=== PATIENT | female | born 1980 | race Caucasian/White ===

== ENCOUNTER → 2018-01-29 12:11 | Outpatient (CLI) | payer BC, SELFPAY ==
--- NOTE | 2018-01-29 12:40 | US_ITS ---
STUDY: ULTRASOUND OF THE FEMALE PELVIS - COMPLETE REASON FOR EXAM: Female, 37 years old. Bleeding LMP: TECHNIQUE: Transabdominal and Transvaginal TECHNICAL QUALITY: Adequate. COMPARISON: None. FINDINGS: The uterus is anteverted and is in a midline position. The uterus measures 10.2 x 5.2 x 4.1 cm. Normal uterine cervix. The endometrium measures 4.0 mm in thickness, and is hyperechoic. There is a trace amount of fluid in the endometrium, likely hemorrhage as patient is currently on period. There is no demonstrated endometrial mass. There is no demonstrated myometrial mass. I.U.D. - The patient does not have an I.U.D. The right ovary is visualized. The right ovary measures 3.1 x 1.6 x 2.0 cm. There is no right ovarian cyst or ovarian mass. There is no visualized right adnexal mass or complex lesion. There is normal arterial and normal venous vascularity. The left ovary is visualized. The left ovary measures 3.2 x 2.3 x 1.8 cm. There is no left ovarian cyst or ovarian mass. There is no visualized left adnexal mass or complex lesion. There is normal arterial and normal venous vascularity. There is no fluid in the cul-de-sac. The pre void volume of the bladder was 361 ml. Polycystic ovary disease: No. US/Pelvic (Non ) IMPRESSION: No suspicious sonographic findings, trace fluid in the endometrium is likely related to patient's cycle. Electronically Signed: Rafael Samano MD at 13:48 EDT , Service support ,
== END ==
PROVIDERS: Family Provider Family Medicine; PCP Family Medicine; Visit Provider Obstetrics & Gynecology
DX: N92.4 Excessive bleeding in the premenopausal period (principal)
CPT/HCPCS: 76856; 93976

== ENCOUNTER → 2018-02-22 13:09 | Outpatient (CLI) | payer BC, SELFPAY ==
[2018-02-22 16:30] LABS: Chlamydia Trachomatis by PCR Negative (Negative); Neisserai gonorrhoeae by PCR Negative (Negative); Probe Check PASS; Sample Adequacy Control PASS; Specimen Processing Control PASS
== END ==
PROVIDERS: Visit Provider Obstetrics & Gynecology
DX: Z11.3 Encounter for screening for infections with a predominantly sexual mode of transmission (principal)
CPT/HCPCS: 87491; 87591

== ENCOUNTER 2018-09-26 11:59 | Day surgery (SDC) | payer BC, SELFPAY ==
[2018-09-26] VITALS (7 sets, daily range): BP systolic 107–142; BP diastolic 73–94; PULSE 54–83; RESP 14–16; TEMP 36.8–37.6; O2SAT 94–96; BMI 36.2
[2018-09-26 12:22] LABS: Internal QC Validated? YES +Cl - CLEAR BKGD; Pregnancy, Urine Negative Negative
[2018-09-26 12:53] LABS: Hematocrit 40.9 % (37-47); Hemoglobin 13.9 g/dl (12.0-15.0); Mean Corpuscular Hgb 31.6 pg (27.0-32.0); Mean Platelet Vol. 9.7 fl (6.2-12.0); Platelet Count 270 K/mm3 (150-450); RBC Distribution Width CV 12.8 % (11.6-14.6); RBC Distribution Width SD 42.6 fl (35.1-43.9)
[2018-09-26 12:54] LABS: Scan Indicated on CBC? Y/N NO
--- NOTE | 2018-09-26 13:34 | PCM.DC.D&C ---
Discharge Diet: No Restrictions Return to work on:: 09/27/18 May resume sexual activity in: 1 week Weight Bearing Status: Weight bearing as tolerated Call your doctor if you observe: Fever of 101 or Higher, Inability to have a bowel movement, Using more than one pad per hour, Calf discomfort, Uncontrolled pain Allergies/Adverse Reactions: Allergies ketorolac [From Toradol] Allergy (Verified 09/26/18 12:15) PASSING OUT BEE STINGS Allergy (Uncoded 09/26/18 12:15) Swelling Medications to take at Discharge Albuterol Inhaler [Ventolin Hfa] 1 - 2 puff INHALATION Q6H PRN PRN 06/22/16 Cetirizine HCl [Zyrtec] 10 mg PO DAILY PRN 06/22/16 Hydrochlorothiazide [Hctz] 25 mg PO DAILY 06/22/16 Lorazepam [Ativan] 0.5 mg PO DAILY PRN PRN 06/22/16 Metoprolol Tartrate [Lopressor (beta breanna)] 25 mg PO DAILY 06/22/16 buPROPion SR [Wellbutrin SR (150mg tablets)] 300 mg PO DAILY 06/22/16 Fluticasone 0.05% [Flonase Nasal [place]] 1 spray NASAL DAILY PRN 09/20/18 Oxycodone HCl/Acetaminophen [Percocet 5-325] 1 - 2 tablet PO Q6H PRN PRN 2 Days #5 tablet 09/26/18 The following prescriptions were given: Oxycodone HCl/Acetaminophen [Percocet 5-325] 1 - 2 tablet PO Q6H PRN PRN 2 Days #5 tablet PRN Reason: Moderate Pain Primary Care Physician: Nadege Perez DO [Primary Care Provider] - Test Results: Test results from this visit will be discussed in further detail at your follow-up appointment, if applicable.
--- NOTE | 2018-09-26 13:40 | EMB_PTH ---
PATIENT: WILSON PINA LOC: [facility] – [place] U#:[id number] AGE/SX: 38/F ROOM: RE09/26/[address]: Dr. Farnaz Lynch MD : 1980 BED: DIS: 09/26/2018 SPEC #: [id number] RECD: 09/26/18 16:18 STATUS: LESLIE RODRI #: [id number] RUBY: 09/26/18 13:[address]: Farnaz Lynch DEPT: SURGICAL PATHOLOGY RECD BY: Ventura Lozoya ENTERED: 09/27/18 10:54 SP TYPE: ENDOM BX/C CHIO DR: Dr. 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 Mild chronic endometritis. AM:can 09/28/18 MICROSCOPIC DESCRIPTION Slides are reviewed. GROSS DESCRIPTION Received in fixative is one container labeled with the patient's name and designated endometrial curettings. The specimen consists of multiple irregular fragments of red-alegria soft tissue that in aggregate measure 2.2 x 2 x 0.2 cm. The specimen is totally submitted in one cassette. / AM:can 09/27/18 TC:3 CPT: 07468
--- NOTE | 2018-09-26 15:20 | PCM.OP.BLANK ---
Operative Report Date of Procedure: 09/26/18 PROCEDURE: Removal of Mirena IUD Hysteroscopy, Dilation and curettage, Baylee endometrial ablation Preoperative Diagnosis: Excessive bleeding in premenopause, menorrhagia Failed trial of Mirena IUD Postop diagnosis: Excessive bleeding in premenopause, menorrhagia Failed trial of Mirena IUD Anesthesia: MAC IV sedation James Dwyer MD 10 cc 1% lidocaine with 1:100,000 epinephrine as paracervical block (Yuliana Lynch MD) Surgeon: Farnaz Lynch MD EBL: Minimal for case Drains: [place], minimal clear yellow urine Complications: none Fluids: replacement Findings: Mirena IUD string at ectocervix. Easily removed Normal appearing endometrium. Tubal ostia visualized bilaterally No fibroids or endometrial polyps noted. Narrative account After the R,B,Alternatives of the procedure were reviewed with the patient , informed consent was obtained. The patient was taken to the operating room with an IV running and placed in dorsal supine position of the operating table. She was given MAC IV sedation and repositioned to the dorsal lithotomy position and prepped and draped in the usual sterile fashion. A Graves speculum was placed into the vagina and the cervix was brought into view. A ring forceps was used to grasp the Mirena IUD string and the Miren a was removed, shown to nurses in the room, and then discarded. The cervix was instilled with 10 cc of 1% lidocaine as a paracervical block using a 20 G spinal needle. The cervix was then gently probed and sequentially dilated to allow admission of the hysteroscope into the endometrial cavity. The hysteroscopy was performed with findings noted as above. A sharp curettage was performed and multiple small pieces of tissue were withdrawn and set aside. The Baylee endometrial ablation device was inserted and the CO2 test passed. The endometrial cavity was 5 cm (9 cm sound, with 4 cm endocervical canal) The endometrial ablation was completed in 120 sec. The device was removed from the uterus, and the single toothed tenaculum was removed. Excellent hemostasis was noted. A RayTec was used to remove any remaining tissue and blood from the upper vagina and cervix. The procedure was terminated. The speculum was removed. The patient was returned to dorsal supine position and awakened from IV sedation and transferred to her recovery room bed in stable condition after tolerating the procedure well. Sponge, lap, needle and instrument counts were correct x two. medications given intraoperatively included 10 cc of 1% lidocaine with 1:100,000 epinephrine instilled as a paracervical block. For a complete listing of the medications given intraoperatively, see the anesthesia record.
[2018-09-26] MEDS: oxyCODONE 5 MG Tablet PO ×2 (16:57→17:28)
[2018-09-26] MEDS: Ibuprofen 200 MG Tablet PO (19:05)
== END 2018-09-26 19:40 | disposition home or self-care (01) ==
LOC: SDC 12:00 → AC 12:00
PROVIDERS: Family Provider Family Medicine; PCP Family Medicine; Referring Provider Obstetrics & Gynecology; Visit Provider Obstetrics & Gynecology
PROC: 0U5B8ZZ Destruction of Endometrium, Via Natural or Artificial Opening Endoscopic (ICD-10-PCS; CPT 58558; principal; 2018-09-26 13:25)
DX: N92.0 Excessive and frequent menstruation with regular cycle (principal); F41.9 Anxiety disorder, unspecified; F32.9 Major depressive disorder, single episode, unspecified; J45.909 Unspecified asthma, uncomplicated; I10 Essential (primary) hypertension; Z87.442 Personal history of urinary calculi; Z79.51 Long term (current) use of inhaled steroids; Z79.899 Other long term (current) drug therapy
CPT/HCPCS: 58301; 58563; 81025; 85027; 86850; 86900; 88305; J7120; J2405

== ENCOUNTER → 2019-05-03 | Outpatient (CLI) | payer BC, SELFPAY ==
[2019-05-03 07:53] VITALS: BMI 36.2
--- NOTE | 2019-05-03 08:06 | RAD_ITS ---
STUDY: X-RAY - RIGHT HAND REASON FOR EXAM: Hand/wrist pain after using a cane. TECHNIQUE: 3 view(s) of the hand. COMPARISON: None. FINDINGS: Normal radiocarpal articulation. Normal distal radioulnar joint. Normal visualized carpal bones. Normal carpal articulations Normal carpometacarpal articulation of the thumb. Normal second through fifth carpometacarpal joints. Normal metacarpi. Normal metacarpophalangeal joint of the thumb. Normal interphalangeal joint of the thumb. Normal proximal and distal phalanges of the thumb. Normal metacarpophalangeal joints of the second through fifth fingers. Normal proximal and distal interphalangeal joints of the second through fifth fingers. Normal phalanges of the second through fifth fingers. The soft tissue structures are unremarkable. RAD/Hand Min 3 Views IMPRESSION: Normal x-ray examination of the right hand. Electronically Signed: Antonio Gonzales MD at 8:29 EDT Tel , Service support ,
== END | disposition home or self-care (01) ==
LOC: HPRAD 08:05
PROVIDERS: Family Provider Family Medicine; PCP Family Medicine; Referring Provider Orthopaedic Surgery; Visit Provider Orthopaedic Surgery
DX: M25.531 Pain in right wrist (principal)
CPT/HCPCS: 73130

== ENCOUNTER → 2019-12-03 | Outpatient (CLI) | payer BC, MEDICAID, SELFPAY ==
[2019-05-03 07:53] VITALS: BMI 36.2
--- NOTE | 2019-12-03 13:00 | RAD_ITS ---
HISTORY: FELL DOWN STEPS ADDITIONAL HISTORY: None provided. TECHNIQUE: Right ankle 3 views Number of images including paperwork: 3 COMPARISON: Right foot 01/31/2017 FINDINGS: BONES: No acute fracture. Corticated ossific density adjacent to the medial malleolus, similar to previous. JOINTS: No subluxation. SOFT TISSUES: No distinct foreign body. Soft tissue swelling. RAD/Ankle min 3 Views IMPRESSION: No acute osseous abnormality. Soft tissue swelling. at 0331 Reported and signed by: Gisell Og MD Electronically Signed: Gisell Og MD at 3:31 EST Tel , Service support ,
--- NOTE | 2019-12-03 13:00 | RAD_ITS ---
STUDY: X-RAY - RIGHT FOOT CLINICAL: Fell down steps. TECHNIQUE: 3 view(s) of the foot. COMPARISON: Radiographs 01/31/2017, 09/11/2014 and 07/31/2014. FINDINGS: There are very small posterior and plantar calcaneal enthesophytes. Otherwise, unremarkable talus, calcaneus, and tarsal bones. Normal visualized subtalar, talonavicular, calcaneocuboid, tarsal and tarsometatarsal articulations. Normal metatarsi. Normal metatarsophalangeal joint of the great toe. Normal tibial and fibular sesamoid bones. Normal interphalangeal joint of the great toe. Normal phalanges of the great toe. Normal second through fifth metatarsophalangeal joints. Normal interphalangeal joints of the lesser toes. There is mild deformity of the medial aspect of the head of the fifth proximal phalanx unchanged since the prior studies, likely from remote healed fracture. The soft tissue structures are unremarkable. RAD/Foot min 3 Views IMPRESSION: Mild deformity of the head of the fifth proximal phalanx, likely from remote healed fracture. Very small calcaneal enthesophytes. Electronically Signed: Antonio Gonzales MD at 13:52 EST Tel , Service support ,
== END | disposition home or self-care (01) ==
LOC: HPRAD 13:00
PROVIDERS: PCP Family Medicine; Referring Provider Physician Assistant; Visit Provider Physician Assistant
DX: M25.571 Pain in right ankle and joints of right foot (principal); M79.671 Pain in right foot
CPT/HCPCS: 73610; 73630

== ENCOUNTER → 2019-12-17 | Outpatient (CLI) | payer BC, MEDICAID, SELFPAY ==
[2019-12-03 13:00] VITALS: BMI 36.2
--- NOTE | 2019-12-17 10:42 | RAD_ITS ---
STUDY: X-RAY - RIGHT FOOT CLINICAL: Female, 39 years old. FRACTURE TECHNIQUE: 3 view(s) of the foot. COMPARISON: None. FINDINGS: Minimal plantar calcaneal spur otherwise normal talus, calcaneus, and tarsal bones. Normal visualized subtalar, talonavicular, calcaneocuboid, tarsal and tarsometatarsal articulations. Normal metatarsi. Normal metatarsophalangeal joint of the great toe. Normal tibial and fibular sesamoid bones. Normal interphalangeal joint of the great toe. Normal phalanges of the great toe. Normal second through fifth metatarsophalangeal joints. Normal interphalangeal joints and phalanges of the lesser toes. Soft tissue swelling over the anterior ankle and dorsum of the foot. There is no demonstrated fracture. RAD/Foot min 3 Views IMPRESSION: Nonspecific soft tissue swelling as described. No acute fracture or subluxation. Electronically Signed: Denise Garcia MD at 0:31 EDT , Service support ,
== END | disposition home or self-care (01) ==
LOC: HPRAD 10:42
PROVIDERS: PCP Family Medicine; Referring Provider Physician Assistant; Visit Provider Physician Assistant
DX: M25.571 Pain in right ankle and joints of right foot (principal); S99.911A Unspecified injury of right ankle, initial encounter
CPT/HCPCS: 73630

== ENCOUNTER → 2020-05-25 | Outpatient (CLI) | payer MEDICAID, SELFPAY ==
[2020-05-25 09:04] VITALS: BMI 36.2
--- NOTE | 2020-05-25 09:09 | RAD_ITS ---
STUDY: X-RAY - LEFT KNEE REASON FOR EXAM: Female, 39 years old. UNSURE OF INJURY. PAIN. DIFFICULT TO BEND TECHNIQUE: 4 view(s) of the knee. COMPARISON: None. FINDINGS: Normal visualized distal femur. Normal visualized proximal tibia and fibula. Normal proximal tibiofibular articulation. Normal medial femorotibial compartment. Normal lateral femorotibial compartment. Normal patellofemoral articulation. The soft tissue structures are unremarkable. RAD/Knee 4 or More Views IMPRESSION: Normal x-ray examination of the knee. Electronically Signed: Ventura Noe MD at 17:19 EDT Tel , Service support ,
== END | disposition home or self-care (01) ==
LOC: HPRAD 09:09
PROVIDERS: PCP Family Medicine; Referring Provider Physician Assistant; Visit Provider Physician Assistant
DX: M25.562 Pain in left knee (principal)
CPT/HCPCS: 73564

== ENCOUNTER 2020-05-27 13:44 | Emergency (ER) | payer MEDICAID, SELFPAY ==
[2020-05-25 09:04] VITALS: BMI 36.2
[2020-05-27 13:44] VITALS: BP 159/109; PULSE 65; RESP 16; TEMP 36.5; O2SAT 94; BMI 39.9
--- NOTE | 2020-05-27 14:11 | ED.VISSUMM ---
- ER Visit Summary Date of Service: 05/27/20 Chief Complaint: Knee pain History of Present Illness: The patient is a 39 F who fell in November. She has been dealing with right ankle and left knee pain. Her pain in her left knee has worsened over the past week. She has left lateral knee pain. She has a history of arthroscopy in 1996 for meniscus problems. No other knee issues. She saw Ortho earlier this week. She is awaiting prior authorization for MRI. She presents today because her left knee buckled while walking. She felt a pop. She is unable to bear weight. Physical Examination: Afebrile and vital signs unremarkable. Inspection appears unremarkable. Range of motion and extension is intact. No obvious laxity. She does have left lateral knee tenderness over the joint line. Neurovascular intact distally. Test Results: X-rays pending. Emergency Department Course and Treatment: Patient has no active controlled prescriptions. She is not driving. She received [place] while awaiting x-ray results. Xrays unremarkable. I suspect the patient may have a meniscus injury. She will likely still need an MRI. This can be done as an outpatient. Patient has crutches and is able to get around on them okay. Will prescribe some pain medicine. She will touch base with her orthopedist's office for follow-up imaging. Treatment Plan: As above Disposition: Discharge Impression: Left knee pain This note was generated with Chipolo dictation software. It may contain incorrect words, spelling, and punctuation that were not noted in review of the chart prior to signing ED Disposition - Plan for ED Patient: Referrals: Nadege Perez DO [Primary Care Provider] -
[2020-05-27] MEDS: HYDROcodone Bitartrate/Apap 5/325 Tablet PO (14:14)
--- NOTE | 2020-05-27 15:00 | RAD_ITS ---
STUDY: X-RAY - LEFT KNEE REASON FOR EXAM: Female, 39 years old. Patient states she was walking and felt a snap in knee, unable to bear weight TECHNIQUE: 4 view(s) of the knee. COMPARISON: None. FINDINGS: Normal visualized distal femur. Normal visualized proximal tibia and fibula. Normal proximal tibiofibular articulation. Normal medial femorotibial compartment. Normal lateral femorotibial compartment. Normal patellofemoral articulation. The soft tissue structures are unremarkable. RAD/Knee 4 or More Views IMPRESSION: Normal x-ray examination of the knee. Electronically Signed: Jayro Purcell, at 15:24 EDT , Service support ,
--- NOTE | 2020-05-27 15:47 | ED.DEP ---
ED Disposition - Plan for ED Patient: Instructions: ED Knee Pain [facility] Prescriptions: Hydrocodone Bitart/Apap 5-325 [[place] 5MG-325MG] 1 tab PO Q6H PRN PRN 3 Days #12 tab PRN Reason: Pain Prescription Printed Referrals: Maricel Mercado DO [STAFF PHYSICIAN] -
== END 2020-05-27 16:13 | disposition home or self-care (01) ==
LOC: ED 14:23
PROVIDERS: Emergency Provider Emergency Medicine; PCP Family Medicine
DX: M25.562 Pain in left knee (principal); I10 Essential (primary) hypertension; Z79.899 Other long term (current) drug therapy
CPT/HCPCS: 73564; 99283

== ENCOUNTER → 2020-05-29 | Outpatient (CLI) | payer MEDICAID, SELFPAY ==
[2020-05-27 13:44] VITALS: BMI 39.9
--- NOTE | 2020-05-29 06:27 | MRI_ITS ---
STUDY: MRI LEFT KNEE REASON FOR EXAM: Female, 39 years old. Pain. TECHNIQUE: Standardized fat and water weighted pulse sequences were obtained in all 3 orthogonal planes. COMPARISON: May 27, 2020 x-ray FINDINGS: Medial meniscus tear of the posterior horn adjacent to the meniscal root, series 6 image /30. There is delamination along the posterior horn, series 3 images /42 through 33/42. Normal hyaline cartilage of the medial femorotibial compartment. There is mild osteoarthritic spur formation of the medial knee compartment. Normal medial collateral ligamentous complex (MCL). Normal distal semimembranosus, gracilis and semitendinosus tendons. Normal lateral meniscus. Normal hyaline cartilage of the lateral femorotibial compartment. Normal lateral femoral condyle and tibial plateau. Normal proximal tibiofibular articulation. Normal lateral collateral (fibular) ligament. Normal popliteus tendon. Normal biceps femoris tendon. Normal anterior cruciate ligament (ACL). Normal posterior cruciate ligament (PCL). Normal congruent patellofemoral articulation. Normal hyaline cartilage of the patellofemoral compartment. Normal medial and lateral patellar retinaculum. Normal quadriceps tendon. Normal patellar tendon. Normal Hoffa''s fat pad. There is a moderate volume joint effusion. The soft tissues are unremarkable. The otherwise visualized osseous structures are unremarkable. MRI/Lower Ext Joint Only (Routine) IMPRESSION: Medial meniscus tear Joint effusion. Electronically Signed: Edgar Link MD at 8:21 EDT , Service support ,
== END | disposition home or self-care (01) ==
PROVIDERS: PCP Family Medicine; Referring Provider Physician Assistant; Visit Provider Physician Assistant
DX: S83.282A Other tear of lateral meniscus, current injury, left knee, initial encounter (principal)
CPT/HCPCS: 73721

== ENCOUNTER 2020-07-01 10:03 | Day surgery (SDC) | payer MEDICAID, SELFPAY ==
[2020-06-01 13:36] VITALS: BMI 39.9
[2020-07-01] VITALS (11 sets, daily range): BP systolic 118–146; BP diastolic 80–103; PULSE 66–80; RESP 15–16; TEMP 36.6–37.3; O2SAT 93–100; BMI 37.9
[2020-07-01] MEDS: Lactated Ringers 1,000 ML 100 ML IV (11:05)
[2020-07-01] MEDS: Epinephrine (1 mg/ml) 1 MG/ML VIAL (12:21)
[2020-07-01] MEDS: Cefazolin 2 GM in 0.9% Normal Saline 100 ML IV (12:43)
--- NOTE | 2020-07-01 12:49 | HP.PCM_ITS ---
History and Physical I have re-examined the patient. There are no clinical changes since date of exam. Intake Intake Visit Reasons: knee pain Accompanied by: Mother Is patient in pain?: Yes Allergies ketorolac [From Toradol] Allergy (Verified 12/17/19 10:50) PASSING OUT BEE STINGS Allergy (Uncoded 09/26/18 12:15) Swelling Medications Albuterol Inhaler [Ventolin Hfa] 1 - 2 puff INHALATION Q6H PRN PRN 06/22/16 [History Confirmed 05/25/20] Cetirizine HCl [Zyrtec] 10 mg PO DAILY PRN 06/22/16 [History Confirmed 05/25/20] Hydrochlorothiazide [Hctz] 25 mg PO DAILY 06/22/16 [History Confirmed 05/25/20] Lorazepam [Ativan] 0.5 mg PO DAILY PRN PRN 06/22/16 [History Confirmed 05/25/20] Metoprolol Tartrate [Lopressor (beta breanna)] 25 mg PO DAILY 06/22/16 [History Confirmed 05/25/20] buPROPion SR [Wellbutrin SR (150mg tablets)] 300 mg PO DAILY 06/22/16 [History Confirmed 05/25/20] Fluticasone 0.05% [Flonase Nasal [place]] 1 spray NASAL DAILY PRN 09/20/18 [History Confirmed 05/25/20] [facility] Social History (Updated 05/25/20 @ 13:10 by DIMITRI Lema) Smoking Status: Never smoker HPI knee pain: Details: Parts of this documentation were recorded by a scribe, this d ocumentation accurately reflects the service provided and the decisions made by me, DIMITRI Lema 05/25/20 0858. WILSON PINA is a 39 year old F here today for left knee pain. States that she fell in November and has a few falls since then and does not recall a specific injury. She states that she has good extension but she has trouble with flexion and she has mostly lateral joint line pain. Denies numbness, tingling or other associated symptoms. Denies any radiating leg pain. She reports having a knee scope of the left knee in 1995 for a plica band release. She is having painful popping of the left knee and she reports having a loud snap of the knee last night which increased her ROM for a few hours. Denies any previous injections. We discussed the current risk associated COVID-19. While it is understood that there is a community spread of COVID 19 the risk of riley COVID-19 while at [facility] is very low, however, the risk cannot be completely mitigated because of the community spread of the disease. We discussed in detail the risk of exposure to and or potential harm posed by the COVID-19 virus with having a surgery/procedure at this time versus the risk of delaying the surgery/procedure. Is not possible to know either the risk of delaying the surgery procedure or chance of getting an infection with perfect accuracy, but a joint decision was made to proceed at this time with a schedule surgery/procedure as indicated on the consent form. Patient was notified that we will need to comply with any screening or testing [facility] wishes to perform or that surgery may be delayed for any positive results. ROS Musc Reports joint pain Skin/Breast Reports system reviewed and no additional complaints, except as docu Neuro Yes system reviewed and no additional complaints, except as docu Ortho Exam Left Knee Skin/Wound: No ecchymosis, No erythema, Yes swelling (Minor swelling no evident effusion) Contralateral Normal: Yes Homans Sign: No Knee ROM: Yes ROM-Extension -20 to 0, No ROM-Flexion 0-140 (Approximately 90 degrees) Examination: Yes med jt line tenderness (Minimal), Yes Lat jt line tenderness (More pronounced), No TTP inf pole patella, No Crepitus, Yes Pain with flexion, Yes Catalina's Test (Modified due to lack of flexion. Pain/guarding) Stability: NML: Anterior Drawer, NML: Gas[place], NML: Valgus 30 (No laxity), NML: Varus 30 (No laxity minor discomfort) Apprehension with Lateral Translation: No Popliteal Adenopathy: No Patella Grind: No KNEE: Inspection of the left knee shows no acute abnormalities. There is some minor swelling noted at the same time no evident effusion or major swelling. Patient does have evident decreased flexion compared to the right side. She will get to approximately 90 degrees before she stops due to pain discomfort. Her ACL, PCL, and collateral ligaments appear to be intact without laxity (only minor discomfort with varus stress). Catalina's is difficult due to decreased flexion at the same time she does have pretty good amount of pain with tibial rotation even at 90 degrees (pain and guarding also with seated modified Catalina's.) Patient has normal sensation throughout the extremity. She has intact motor function of the ankle/foot/toes Assessment & Plan Problems 1. Acute pain of left knee M25.562 2. Internal derangement of left knee M23.92 Plan Patient presents the office today for left knee pain. Patient states that she had a fall back in the spring which seemed to start her symptoms. She states that she has had other falls since that time where her knee feels like it wants to just give out and she falls. Her physical exam today shows evident lateral joint line tenderness with pain/guarding with modified Catalina's. She has decreased flexion as well as pain which does make this maneuver difficult to perform well. 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 She states that these have not really helped her. At this time with her examination pointing more towards a meniscus involvement we are to proceed with MRI of the left knee. Patient will follow-up in our office following the MRI to review the impression/images and discuss next step in treatment. She can take an anti- inflammatory for inflammation/pain and ice as well. This note was generated with [employer] dictation software. It may contain incorrect words, spelling, and punctuation that were not noted in checking the note before signing. Orders Orders: Knee 4 or More Views Today M25.562 Lower Ext Joint Only (Routine) Today M23.92, S83.282A Coding Level of Care Code Off vis,est,level 3 Diagnoses Acute pain of left knee M25.562 ??Chronicity: acute Internal derangement of left knee M23.92
--- NOTE | 2020-07-01 12:50 | OP.PCM_ITS ---
Report of Operation Date of Procedure: 07/01/20 Pre-Operative Diagnosis: left knee med men tear, oa med joint line oa Post-Operative Diagnosis: same Surgery/Procedure Performed:: left knee arthroscopy, synovectomy, med men repair, mfc chondral debridement/microfracture front end ui developer: Domo Newton Type of Anesthesia:: General Anesthesiologist: Jeovanny Sneed Estimated Blood Loss (mL): none Fluids Replaced: 800cc lr Description of Procedure: Operative note Patient is a 40-year-old female who is had surgery on her right knee in the past continued pain her incision increased pain recently and locking of her right knee MRI confirms a medial meniscus tear as well as some cartilage lesions consistent with arthritis. Patient also has some synovitis in the anterior medial aspect. Risk benefits alternative surgery was discussed with patient. Patient failed conservative treatment options and opted to proceed with left knee arthroscopy. Located risks including but not limited to blood loss, blood clot, infection, neurovascular, failure procedure, loss of life and loss of limb. Again patient is very low proceed with left knee arthroscopy. We discussed the current risk associated COVID-19. While it is understood that there is a community spread of COVID 19 the risk of riley COVID-19 while at [facility] is very low, however, the risk cannot be completely mitigated because of the community spread of the disease. We discussed in detail the risk of exposure to and or potential harm posed by the COVID-19 virus with having a surgery/procedure at this time versus the risk of delaying the surgery/procedure. Is not possible to know either the risk of delaying the surgery procedure or chance of getting an infection with perfect accuracy, but a joint decision was made to proceed at this time with a schedule surgery/procedure as indicated on the consent form. Patient was notified that we will need to comply with any screening or testing [facility] wishes to perform or that surgery may be delayed for any positive results. Operative note Patient seen and examined preoperative holding area. Left knee was marked. Patient brought to the operating room placed supine on the operating table. Signed, anesthesia, antibiotics were administered. Left leg was prepped and draped in usual sterile technique with a tourniquet around her upper thigh. All bony prominences well-padded SCDs placed on her contralateral limb. We marked out our incision for bony for portal placement the left leg was then elevate exsanguinated tourniquet was raised her pressure of 250 torr. Timeout is performed. We then created an anterior lateral portal. Begin our diagnostic arthroscopy. Patellofemoral joint was unremarkable. We then moved to the medial joint line created anterior medial portal under direct visualization. Then had a resected with a shaver as she has quite significant synovitis in the anteromedial aspect of her knee joint. We then probed the medial meniscus there was an unstable red red tear of the posterior horn going to the mid body of the medial meniscus. We then used a rasp to rasp the area of the tear. We then used a shaver again to debride back to for better facilitating healing. We then placed 3-4 360 reverse curved FasT-Fix devices across the tear we then reinserted probe we had stable remnant meniscus remaining. The ACL PCL were present within the notch. The lateral femoral condyle lateral tibial plateau were intact stable probing. The lateral meniscus was intact and stable probing. We then moved back to the medial joint line as there was unstable cartilage lesion on the medial mid of the medial femoral condyle. We probed this and it was unstable piece about the 4 x 5 mm. We used a curette to curette to a stable shoulder. We also curetted the bony margin to further debride the calcified cartilage layer. We then inserted microfracture picks into the bone and had visualization of return of blood and from the bone. We then also microfracture the notch this to further help healing of the MFC as well as the medial meniscus tear. Please note that prior to this we did irrigate the knee with copious nonsterile saline. Tourniquet deflated. Sterile dressings were applied after the portals were closed with interrupted 4-0 nylon sutures. Patient tolerated well no complication transferred recovery room in stable condition. Postoperative note nwb operative limb Follow-up on Monday for device adjustment and dressing changes Keep dressing clean and dry Discussed with friend will give pictures in 2 weeks Call with increased pain numbness tingling further issues arise This note was generated with [employer] software. It may contain incorrect words, spelling, and punctuation that were not noted in checking the note before signing.
--- NOTE | 2020-07-01 12:50 | PCM.DC.ORTHO ---
Discharge Diet: No Restrictions - non weight bearing operative limb for 6 weeks, 0-30 degrees rom while seated, brace locked in extension at night and during ambulation, follow up on monday (please call) for appointment with bethany for dressing change and brace adjustment, call with concers, Ice, Elevate toes above nose, ankle pumps next 48-72 hours Discharge Activity: May Not Drive May shower in (days): 1 Ice area for (Minutes): 20 - Every hour while awake. Weight Bearing Status: Weight bearing as tolerated Keep extremity elevated above heart level: Operative Extremity Call your doctor if your incision/area has: Continuous Slow Oozing, Sudden Increased Bleeding, Increased Pain/ Swelling, Increased Redness, Foul Smelling Discharge Call your doctor if you observe: Fever of 101 or Higher, Coldness, Increased Pain, Numbness or Tingling, Change in Color, Calf discomfort Allergies/Adverse Reactions: Allergies ketorolac [From Toradol] Allergy (Verified 07/01/20 10:44) PASSING OUT BEE STINGS Allergy (Uncoded 07/01/20 10:44) Swelling Medications to take at Discharge Albuterol Inhaler [Ventolin Hfa] 1 - 2 puff INHALATION Q6H PRN PRN 06/22/16 Cetirizine HCl [Zyrtec] 10 mg PO DAILY PRN 06/22/16 Hydrochlorothiazide [Hctz] 25 mg PO DAILY 06/22/16 Lorazepam [Ativan] 0.5 mg PO DAILY PRN PRN 06/22/16 Metoprolol Tartrate [Lopressor (beta breanna)] 25 mg PO DAILY 06/22/16 buPROPion SR [Wellbutrin SR (150mg tablets)] 300 mg PO DAILY 06/22/16 Fluticasone 0.05% [Flonase Nasal [place]] 1 spray NASAL DAILY PRN 09/20/18 Escitalopram Oxalate [Lexapro] 5 mg PO DAILY 05/27/20 Cyanocobalamin [Vitamin B12] 300 mcg PO DAILY 06/23/20 Hydrocodone Bitart/Apap 5-325 [[place] 5MG-325MG] 1 - 2 tab PO Q6H PRN PRN 5 Days #40 tab 07/01/20 The following prescriptions were given: Hydrocodone Bitart/Apap 5-325 [[place] 5MG-325MG] 1 - 2 tab PO Q6H PRN PRN 5 Days #40 tab PRN Reason: Pain Transmission Status: Received by [facility] Primary Care Physician: Nadege Perez DO [Primary Care Provider] - Test Results: Test results from this visit will be discussed in further detail at your follow-up appointment, if applicable. Please Follow Up With: Maricel Mercado DO - [phone]
[2020-07-01] MEDS: Mupirocin Ointment 22gm Tube 1 APPLIC (13:28)
[2020-07-01] MEDS: Bupiv/Epi 0.25% 30 ML Vial (13:30)
[2020-07-01] MEDS: HYDROcodone Bitartrate/Apap 5/325 Tablet PO (16:35)
== END 2020-07-01 17:11 | disposition home or self-care (01) ==
LOC: SDC 10:03 → AC 10:04
PROVIDERS: Anesthesiology; PCP Family Medicine; Referring Provider Orthopaedic Surgery; Visit Provider Orthopaedic Surgery
PROC: (CPT 29882; principal; 2020-07-01 11:30)
DX: S83.242A Other tear of medial meniscus, current injury, left knee, initial encounter (principal); M17.12 Unilateral primary osteoarthritis, left knee; F41.9 Anxiety disorder, unspecified; F32.9 Major depressive disorder, single episode, unspecified; I10 Essential (primary) hypertension; Z11.59 Encounter for screening for other viral diseases; Z79.51 Long term (current) use of inhaled steroids; Z79.899 Other long term (current) drug therapy; W18.30XA Fall on same level, unspecified, initial encounter; Y93.89 Activity, other specified; Y92.89 Other specified places as the place of occurrence of the external cause; Y99.8 Other external cause status
CPT/HCPCS: 01400; 29882; 87635; C9803; J7120; J2405; U0003

== ENCOUNTER 2020-07-27 11:25 | Emergency (ER) | payer MEDICAID, SELFPAY ==
[2020-07-27 11:26] VITALS: BP 152/97; PULSE 76; RESP 18; TEMP 35.8; O2SAT 95; BMI 38.7
--- NOTE | 2020-07-27 11:55 | VDLE_ITS ---
Reason For Study: Pain Procedure LEFT This is a venous duplex using B-mode, color GSV is normal. flow and spectral Doppler. CFV is compressible, spontaneous, phasic, Exam performed portable in ED. competent, and demonstrates normal A preliminary report was called and/or faxed augmentation. to [facility]. FV is compressible, spontaneous, phasic, competent and demonstrates normal augmentation. POP V is compressible, spontaneous, phasic, competent and demonstrates normal augmentation. T/P Trunk is compressible. PTV is compressible. LT PerV is compressible. Acute deep vein thrombosis is noted in the left GastrocV. Interpretation Summary Acute deep venous thrombosis left gastrocnemius vein. Otherwise patent and compressible left lower extremity deep venous system Patent and compressible left great saphenous vein Ordering Physician: Zain Zamora Referring Physician: Marcello Peters Performed By: Heidy Ontiveros RVT
--- NOTE | 2020-07-27 11:56 | ED.DCSUM_ITS ---
- ER Visit Summary Date of Service: 07/27/20 Chief Complaint: Left calf pain History of Present Illness: The patient is a 40 F who presents with left calf pain and left lower leg swelling. On July 01 she had a left knee surgery with Dr. Mercado. She had meniscus repair with microfracture repair. She has been nonweightbearing since that time. She is in a knee brace. Yesterday she had a developing left calf pain. Is worse with dorsiflexion and plantarflexion. She has no history of DVT or PE. She called the orthopedic surgeon's office who told her to come get a ultrasound to rule out DVT. He has noted some mild swelling of the left lower leg. Physical Examination: Vital signs reviewed. Left lower leg exam reveals tenderness over the left calf. Her incisions are clean dry and intact over the knee. She has mild swelling of the left lower leg. She has a 2+ DP pulse. There are no palpable cords. She has no thigh tenderness or swelling. Test Results: Duplex ultrasound positive for DVT in the left gastrocnemius vein Emergency Department Course and Treatment: The patient is positive for DVT. Her vital signs are normal. I feel she can be treated as an outpatient. I did discuss with Dr. Moses orthopedics since they recently did a surgery and this is likely a complication of that. He will forward the information to Dr. Mercado. Patient will be started on Eliquis. She will call her PCP and orthopedics for follow-up. Treatment Plan: [] Disposition: Discharge Impression: Left leg DVT This note was generated with [employer] dictation software. It may contain incorrect words, spelling, and punctuation that were not noted in review of the chart prior to signing ED Disposition - Plan for ED Patient: Disposition: Home or Assisted Living Instructions: ED DVT Prescriptions: Apixaban [Eliquis] 5 mg PO BID #74 tab Transmission Status: Pending to [id number] Referrals: Nadege Perez DO [Primary Care Provider] -
[2020-07-27 13:05] VITALS: BP 139/87; PULSE 87; RESP 18; O2SAT 99
== END 2020-07-27 13:07 | disposition home or self-care (01) ==
PROVIDERS: Emergency Provider Emergency Medicine; PCP Family Medicine
DX: I82.462 Acute embolism and thrombosis of left calf muscular vein (principal); I10 Essential (primary) hypertension; Z98.890 Other specified postprocedural states
CPT/HCPCS: 93971; 99281

== ENCOUNTER → 2020-09-30 10:45 | Outpatient (CLI) | payer MEDICAID, SELFPAY ==
--- NOTE | 2020-09-30 10:46 | VDLE_ITS ---
Reason For Study: F/U DVT RIGHT LEFT CFV is compressible, spontaneous, phasic, GSV is normal. competent and demonstrates normal CFV is compressible, spontaneous, phasic, augmentation. competent, and demonstrates normal Procedure augmentation. This is a venous duplex using B-mode, color FV is compressible, spontaneous, phasic, flow and spectral Doppler. competent and demonstrates normal Exam performed in department. augmentation. The exam was diagnostic. POP V is compressible, spontaneous, phasic, competent and demonstrates normal augmentation. T/P Trunk is compressible. PTV is compressible. LT PerV is compressible. Gastrocnemius V is now compressible. Interpretation Summary There is no evidence of left lower extremity deep vein thrombosis. Left great saphenous vein appears patent and compressible segmentally. Patent and compressible right common femoral vein Resolution of previously noted left gastrocnemius DVT Ordering Physician: Maricel Mercado Referring Physician: Nadege Perez Performed By: Yeny Rendon RDCS, RVT
== END ==
PROVIDERS: PCP Family Medicine; Referring Provider Orthopaedic Surgery; Visit Provider Orthopaedic Surgery
DX: Z86.718 Personal history of other venous thrombosis and embolism (principal)
CPT/HCPCS: 93971

== ENCOUNTER 2020-11-13 09:00 | Outpatient (RCR) | payer MEDICAID, SELFPAY ==
--- NOTE | 2020-08-14 09:25 | HP.PTEVAL_ITS ---
Patient's Visit Information WILSON PINA is a 40 year old F referred to Physical Therapy by Dr. Maricel Mercado DO with a diagnosis of L knee MFC and OC lesion s/p L meniscal repair and microfracture.. Date of Evaluation: 08/14/20 Physical Therapist: James Brito, DPT, OCS, CSCS - Visit Plan Frequency: 3x /Week Duration: 4-6 Weeks Plan: Pt is WBAT with brace locked until good quad control(visualized, 20 SLR without lag and feels stable) then can unlock. May work on unlocked in therapy for now if painfree. Brace limited to 90 flexion in NWB until 08/28 then can open it all the way. Work on gait progression within these limitations to normal walking with brace. Strengthen L LE gradually WBAT without increasing pain. Work on ROM L knee and stretch HS and quad. Pt being treated for blood clot 2 weeks ago and should avoid rollout or STM other than scar massage. According to doctor note, pt can wean out of brace after a week or two without pain or swelling and with good quad control - Subjective L meniscal repair and microfracture on 07/01. 6 weeks NWB and locked brace. Yesterday opened brace to 90 and WBAT. Not sure how this thing got torn but did fall in November. Been doing QS, SLRx4, HS to 30 degrees. July 31 got a bood clot and put on elaquist. Pain is not a problem or issue except in middle of night gets medial mid joint line pain. Wakes up most nights and takes 30 min utes to get back to sleep. Using crutch to get around for the last day WBAT in brace. 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 Basic ADLs getting done just takes a while. Lives in one apartment upstairs and using them OK. 2 weeks at 90 in brace then can open it up adn locked in ext until good quad control. - Pain L knee. Pain Intensity (Out of 10): 0 Pain Intensity Range: 0, 4 - Objective L knee in brace locked with one crutch WBAT ambulation. tiring but more foot pain then knee with 200 foot walk back to room. Brace limited to [address] way for the next two weeks. Walks without brace slow and hesitant but not painful with decent L knee flexion at swing but short steps that are hesitant in therapy. Transitions are I chair and bed today. Don and doffs brace I. L knee AROM 0-80, 0 quad lag with SLR but poor quad contraction visualized, better in sitting with visual cues but not great.. R knee 0-130. Patella moves fair on L and good on R. Swelling is minimal in knee, slightly worse down in lower leg and foot on L. Not pitting. Incisions healed well without redness heat or swelling. Medial incsiion slightly puckered. Mild scar tissue under both. HS flexibility is fair and quad l not tested due to limited knee ROM. Mild tenderness over medial incision. strength B hips 4/5 abd and ext and flexion, Knee flex 4+ R and 3+ , flexion 4+ R and 4- L. Ankle strength 4- L and 4+ R. - Goals Goal 1:: Pt progress as allowed to full aROM without increased paina nd good quad contraction Goal Time Frame: 2-4 Weeks Goal 2:: Sleep through night without waking Goal Time Frame: 2-4 Weeks Goal 3:: Walk normally in community adn climb steps as allowed by protocool Goal Time Frame: 4-6 Weeks Goal 4:: Pt ready to return to work. Goal Time Frame: 4-6 Weeks Goal 5:: Pt feel 95% back to normal mobility and function L knee Goal Time Frame: 4-6 Weeks Goal 6:: 50/80 LEFS Goal Time Frame: 4-6 Weeks - Rehabilitation Potential Physical Therapy Diagnosis: L knee meniscal tear and OC lesion. Rehabilitation Potential: Fair - Anticipated Interventions Patient/Client Instruction: Educate patient on: Condition, Plan of Care For the Purpose of:: To decrease pain, To increase ROM, To improve muscle performance and motor function, To increase tolerance to activity/condition/position, To improve ability of physical actions for home/community/work/leisure, To improve gait and locomotor functions Therapeutic Exercise to Include: Strength training, Flexibilty training, Gait and locomotor training, Neuromotor development, Passive ROM, Active ROM For the Purpose of:: To decrease pain, To improve muscle performance and motor function, To increase tolerance to activity/condition/position, To improve ability of physical actions for home/community/work/leisure, To improve gait and locomotor functions, To increase flexibility/ROM Manual Therapy Techniques to Include: Scar massage For the Purpose of:: To increase ROM Cryotherapy (ice pack, ice massage): Yes For the Purpose of:: To decrease pain, To decrease swelling/inflammation Thank you for the opportunity to evaluate your patient. For Medicare and Medicare HMO plans, please review the plan of care and approve it. It will need to be FAXED BACK to us at [phone] for Medicare purposes. For Medicare only, by signing this I certify the plan of care. Please let me know if there are questions or concerns regarding this plan of care. Physician Signature: Date:
--- NOTE | 2020-09-22 18:54 | HP.PTREVAL ---
Dr. Maricel Mercado, DO, It has been my pleasure to treat WILSON PINA over the last 6 visits for L knee MFC and OC lesion s/p L meniscal repair and microfracture.. Please see the progress note below for an update on the physical therapy plan of care! Subjective: Got covid and been quarantining. Knee been tolerating not bad. Some days has pain and others doesn't . Pivotting still hurts. Care taken in and out of car. Sleeping OK. Not working yet but will go back on 10/12. Been doing SLR in all planes and ROM exercises. To doctor next week. Objective/Function: 0-113 AROm L and 123 R, L is 118 after stretching. Strength is 5/5 in hip abd, ext, and felxion, knee ext L is 3+ and sore and HSC is 4- on L, 5/5 on R. Walks normal after first couple steps, steps reciprocal today with one rail. Overall has done well considering in quarantine for 3 weeks. Still appropriate for strengthening of knee muscles, gradual agility and progress ROM. Plan Plan: 3x/week for 3 weeks, progress strength of L knee machines and WB/functional to tolerance of knees, avoid lunging and deep squats. Also, ensure ROM progression with flexion to end range. Also do some gentle agility to work toward gentle pivotting progression. ice as needed. Fair prognosis for continued improvement toward approp goals. Goals Goal 1:: Pt progress as allowed to full aROM without increased paina nd good quad contraction Goal Time Frame: 2-4 Weeks Goal Progress: Progressing ROM, quad met Goal 2:: Sleep through night without waking Goal Time Frame: 2-4 Weeks Goal Progress: Goal Met Goal 3:: Walk normally in community adn climb steps as allowed by protocool Goal Time Frame: 4-6 Weeks Goal Progress: Goal Met Goal 4:: Pt ready to return to work. Goal Time Frame: 4-6 Weeks Goal Progress: 3 weeks Goal 5:: Pt feel 95% back to normal mobility and function L knee Goal Time Frame: 4-6 Weeks Goal Progress: 75% progressing ,a pprop Goal 6:: 50/80 LEFS Goal Time Frame: 4-6 Weeks Goal Progress: approp, progressing. Anticipated Interventions Patient/Client Instruction: Educate patient on: Condition, Plan of Care For the Purpose of:: To decrease pain, To increase ROM, To improve muscle performance and motor function, To increase tolerance to activity/condition/position, To improve ability of physical actions for home/community/work/leisure, To improve gait and locomotor functions Therapeutic Exercise to Include: Strength training, Flexibilty training, Gait and locomotor training, Neuromotor development, Passive ROM, Active ROM For the Purpose of:: To decrease pain, To improve muscle performance and motor function, To increase tolerance to activity/condition/position, To improve ability of physical actions for home/community/work/leisure, To improve gait and locomotor functions, To increase flexibility/ROM Manual Therapy Techniques to Include: Scar massage For the Purpose of:: To increase ROM Cryotherapy (ice pack, ice massage): Yes For the Purpose of:: To decrease pain, To decrease swelling/inflammation Please do not hesitate to contact me at [phone] by phone or if you have questions or concerns regarding this new plan of care! Sincerely, James Brito, DPT, OCS, CSCS
--- NOTE | 2020-10-16 09:27 | HP.PTREVAL ---
Dr. Maricel Mercado, DO, It has been my pleasure to treat WILSON PINA over the last 15 visits for L knee MFC and OC lesion s/p L meniscal repair and microfracture.. Please see the progress note below for an update on the physical therapy plan of care! Subjective: Still has soreness and feel 90 at times. Pain medial L knee 1-3/10 discomfort. Maybe 5/10 after work. Sleeping OK most of time. Sleep 80% better. Inand out of car is stilla challenge swinging leg in and out and bending knee. Stretching 3x/day at home. Objective/Function: 0-110 ROM L knee, 122 R knee. Waks without antalgia but hesitant today. Steps reciprocal with rail but agian hesitant and some pain end range flexion L knee. Knee is tight and hard to relax with flexion passed 105. Patella moving decently today. 122 PROM after stretches today. Overall more painful than I would like but improving ROM and strength. Was set back with covid diagnosis and missing therapy. bracing appropriate for patient and she will bring it in when she gets it. Approriate to cotninue toward goals with fair prognosis. Plan Plan: 2x/week for 4 weeks for. 1. Inflammation control with ice, Es, brace, limited WB to tolerance. 2. Strengthen L LE, core, gradual progression of function. 3. rolout and stretchi into flexion L knee. Goals Goal 1:: Pt progress as allowed to full aROM without increased paina nd good quad contraction Goal Time Frame: 2-4 Weeks Goal Progress: Painful, approp. Goal 2:: Sleep through night without waking Goal Time Frame: 2-4 Weeks Goal Progress: setback, approp. Goal 3:: Walk normally in community adn climb steps as allowed by protocool Goal Time Frame: 4-6 Weeks Goal Progress: Goal Met Goal 4:: Pt ready to return to work. Goal Time Frame: 4-6 Weeks Goal Progress: Goal Met Goal 5:: Pt feel 95% back to normal mobility and function L knee Goal Time Frame: 2-4 Weeks Goal Progress: setback covid, approp. Goal 6:: 50/80 LEFS Goal Time Frame: 4-6 Weeks Goal Progress: 45, approp. Anticipated Interventions Patient/Client Instruction: Educate patient on: Condition, Plan of Care For the Purpose of:: To decrease pain, To increase ROM, To improve muscle performance and motor function, To increase tolerance to activity/condition/position, To improve ability of physical actions for home/community/work/leisure, To improve gait and locomotor functions Therapeutic Exercise to Include: Strength training, Flexibilty training, Gait and locomotor training, Neuromotor development, Passive ROM, Active ROM For the Purpose of:: To decrease pain, To improve muscle performance and motor function, To increase tolerance to activity/condition/position, To improve ability of physical actions for home/community/work/leisure, To improve gait and locomotor functions, To increase flexibility/ROM Manual Therapy Techniques to Include: Scar massage For the Purpose of:: To increase ROM Cryotherapy (ice pack, ice massage): Yes For the Purpose of:: To decrease pain, To decrease swelling/inflammation Please do not hesitate to contact me at [phone] by phone or if you have questions or concerns regarding this new plan of care! Sincerely, James Brito, DPT, OCS, CSCS
--- NOTE | 2020-11-13 10:22 | HP.PTREVAL_ITS ---
Dr. Maricel Mercado, DO, It has been my pleasure to treat WILSON PINA over the last 22 visits for L knee MFC and OC lesion s/p L meniscal repair and microfracture.. Please see the progress note below for an update on the physical therapy plan of care! 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 Saw doctor and wants MRI to see if scar tissue. Awaiting approval. ROM is 125 . stretching at home 2-3x/day. Inchhworms at home. Pain and motion is big issue, strength is improving. Walking is getting there. Steps are good. Pain is lateral with squatting or stretching into felxion. Objective/Function: 0-120 aROM L knee(0-125 R), 125 flexion L with OP but painful lateral knee. Swelling palpable lateral knee compartment. strength 4+/5 knee flexiona dn extension. Gait is stiff at first but loosens up to no gait deviations quickly. Steps are reciprocal without rail. 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 Plan Plan: pt to strength and ROM at home and f/u two weeks or right after MRI unless pain or ROM worsen adn then sooner. Next session, check ROM and strength and floor transfer for how home exercises are helping her. New goal set with questionable prognosis. Goals Goal 1:: Pt progress as allowed to full aROM without increased paina nd good quad contraction Goal Time Frame: 2-4 Weeks Goal Progress: Progressing, approp Goal 2:: Sleep through night without waking Goal Time Frame: 2-4 Weeks Goal Progress: Goal Met Goal 3:: Floor trasnfer without increased pain Goal Time Frame: 4-6 Weeks Goal Progress: NEW GOAL Goal 4:: Pt ready to return to work. Goal Time Frame: 4-6 Weeks Goal Progress: Goal Met Goal 5:: Pt feel 95% back to normal mobility and function L knee Goal Time Frame: 2-4 Weeks Goal Progress: 60%, approp. Goal 6:: 50/80 LEFS Goal Time Frame: 4-6 Weeks Goal Progress: Goal Met Anticipated Interventions Patient/Client Instruction: Educate patient on: Condition, Plan of Care For the Purpose of:: To decrease pain, To increase ROM, To improve muscle performance and motor function, To increase tolerance to activity/condition/position, To improve ability of physical actions for home/community/work/leisure, To improve gait and locomotor functions Therapeutic Exercise to Include: Strength training, Flexibilty training, Gait and locomotor training, Neuromotor development, Passive ROM, Active ROM For the Purpose of:: To decrease pain, To improve muscle performance and motor function, To increase tolerance to activity/condition/position, To improve ability of physical actions for home/community/work/leisure, To improve gait and locomotor functions, To increase flexibility/ROM Manual Therapy Techniques to Include: Scar massage For the Purpose of:: To increase ROM Cryotherapy (ice pack, ice massage): Yes For the Purpose of:: To decrease pain, To decrease swelling/inflammation Please do not hesitate to contact me at [phone] by phone or if you have questions or concerns regarding this new plan of care! Sincerely, James Brito, DPT, OCS, CSCS
--- NOTE | 2021-02-16 10:05 | HP.PT.NRP ---
WILSON PINA was seen in my office for initial evaluation on 08/14/20. The following Plan of Care was established for this patient: Initial Frequency: 3x /Week Initial Duration: 4-6 Weeks Patient/Client Instruction: Educate patient on: Condition, Plan of Care For the Purpose of:: To decrease pain, To increase ROM, To improve muscle performance and motor function, To increase tolerance to activity/condition/position, To improve ability of physical actions for home/community/work/leisure, To improve gait and locomotor functions Therapeutic Exercise to Include: Strength training, Flexibilty training, Gait and locomotor training, Neuromotor development, Passive ROM, Active ROM For the Purpose of:: To decrease pain, To improve muscle performance and motor function, To increase tolerance to activity/condition/position, To improve ability of physical actions for home/community/work/leisure, To improve gait and locomotor functions, To increase flexibility/ROM Manual Therapy Techniques to Include: Scar massage For the Purpose of:: To increase ROM Cryotherapy (ice pack, ice massage): Yes For the Purpose of:: To decrease pain, To decrease swelling/inflammation This patient was last seen in our office 11/13/20. Pertinent comments regarding their Physical therapy will appear below: Pt seen 22 visits through 11/13. She called a month llater to state doctor wanted her to take a break due to stress fracture. She will get new script when time to return. At this point I will be discontinuing this patient from physical therapy. I would be happy to see this patient again in the future if found appropriate by the physician. Thank you! James Brito, DPT, OCS, CSCS
== END 2020-11-13 19:00 | disposition home or self-care (01) ==
LOC: PT 09:00
PROVIDERS: PCP Family Medicine; Referring Provider Orthopaedic Surgery; Visit Provider Orthopaedic Surgery
DX: M93.962 Osteochondropathy, unspecified, left lower leg (principal); M25.862 Other specified joint disorders, left knee
CPT/HCPCS: 97014; 97110; 97140; 97161; 97164; 97530; G0283

== ENCOUNTER → 2020-12-08 17:24 | Outpatient (CLI) | payer MEDICAID, SELFPAY ==
--- NOTE | 2020-12-08 17:24 | MRI_ITS ---
STUDY: MRI LEFT KNEE REASON FOR EXAM: Left knee pain, surgery 07/01/2020. TECHNIQUE: Standardized fat and water weighted pulse sequences were obtained in all 3 orthogonal planes. COMPARISON: MRI images 05/29/2020, radiographs 05/27/2020. FINDINGS: There is a partial medial meniscectomy. There is interval development of an oblique tear of the inferior articular surface of the posterior horn of the medial meniscus (proton-density sagittal image 9; proton-density coronal image 13). There is peripheral subluxation of the medial meniscus. There is high grade chondromalacia of the medial femoral condyle (T2 sagittal image 8) and a very small chondral tear of the medial tibial plateau (T2 sagittal image 9). There is mild subchondral bone edema of the medial tibial plateau (T2 coronal images 16-18), a stress phenomenon. Normal medial collateral ligamentous complex (MCL). Normal distal semimembranosus, gracilis and semitendinosus tendons. Normal lateral meniscus. Normal hyaline cartilage of the lateral femorotibial compartment. Normal lateral femoral condyle and tibial plateau. Normal proximal tibiofibular articulation. Normal lateral collateral (fibular) ligament. Normal popliteus tendon. Normal biceps femoris tendon. Normal anterior cruciate ligament (ACL). Normal posterior cruciate ligament (PCL). Normal congruent patellofemoral articulation. Normal hyaline cartilage of the patellofemoral compartment. Normal medial and lateral patellar retinaculum. Normal quadriceps tendon. Normal patellar tendon. There is postoperative scarring in Hoffa''s fat pad. There is a moderate-sized joint effusion. There is interval development of thickened medial and lateral patellar plicae (axial images 11-13). There is edema in the anterior subcutis adipose space. The otherwise visualized osseous structures are unremarkable. MRI/Lower Ext Joint Only (Routine) IMPRESSION: Partial medial meniscectomy with recurrent medial meniscal tear. Chondromalacia of the medial femoral condyle and very small chondral tear of the medial tibial plateau. Mild subchondral bone edema medial tibial plateau, a stress phenomenon. Joint effusion. Thickened medial and lateral patellar plicae. Electronically Signed: Antonio Gonzales MD at 8:32 EST Tel , Service support ,
== END ==
PROVIDERS: PCP Family Medicine; Referring Provider Orthopaedic Surgery; Visit Provider Orthopaedic Surgery
DX: M25.662 Stiffness of left knee, not elsewhere classified (principal); M93.962 Osteochondropathy, unspecified, left lower leg
CPT/HCPCS: 73721

== ENCOUNTER 2021-01-08 10:16 | Outpatient (RCR) | payer MEDICAID, SELFPAY | END 2021-01-29 23:59 | LOC: EMPH 10:16 | PROVIDERS: PCP Family Medicine; Visit Provider Family Medicine Geriatric Medicine | DX: Z03.818 Encounter for observation for suspected exposure to other biological agents ruled out (principal) | CPT/HCPCS: 87426 ==

== ENCOUNTER 2021-06-03 13:31 | Outpatient (RCR) | payer OTHER, MEDICAID, SELFPAY | END 2021-07-01 23:59 | LOC: EMPH 13:31 | PROVIDERS: PCP Family Medicine; Visit Provider Family Medicine Geriatric Medicine | DX: Z03.818 Encounter for observation for suspected exposure to other biological agents ruled out (principal) | CPT/HCPCS: 87426 ==

== ENCOUNTER 2022-07-13 18:00 | Outpatient (RCR) | payer OTHER, SELFPAY ==
--- NOTE | 2022-06-01 18:32 | HP.PTEVAL ---
Patient's Visit Information WILSON PINA is a 41 year old F referred to Physical Therapy by Dr. Jean Gandara MD with a diagnosis of Pain in L knee. Date of Evaluation: 06/01/22 Physical Therapist: FABIENNE Cano - Visit Plan Frequency: 1x/Week Duration: 2 Months Plan: 1X/ week for 6 weeks for AT for L hip and knee strength, core stability, L knee AROM, with HEP. HEP: SLR, SLR VMO, S/L hip abd, Bridges with band - Subjective December 01, 2019 she fell down the stairs and fell on her R ankle and her ankle was worse than her knee. 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 Went to a diff ortho surgeon and MRI and the meniscus from the repair site all the way across it was torn. He went in November of 2021 and did menisectomy and cleaned out the arthritis and there was a lot of joint damage. Her L knee is constantly painful and she can not walk and can not sleep. That surgeon retired and now she is with Dr Gandara and wants to do a series of gel injections or a total knee replacement. She is just in pain all the time and can not function. Pain meds do not even touch it. She walks a lot for her job. - Pain L knee pain Pain Intensity (Out of 10): 4 Pain Intensity Range: 8, 10 - Objective Gait: Walks with decrease stance time on the L and very little knee flexion with WBOS. She is able to heel walk with an increase limp and toe walking. Pt reports that her knee is calm today because she has not been on it all day. L knee AROM: 0-122 degrees L knee flexion. R knee AROM: 0-130 degrees R knee flexion. L knee girth measurements 43.5, 44.9, 49.3. R knee girth measurements 43.6, 43, 47.5. R hip flexion 12.7#, R knee ext 24.6#, R knee flex 10.1# L hip abd 10.8#. L hip flexion 11.6#, L knee ext 9.2#, and L knee flex 7.2#, L hip abd 11.8#. Stairs: Pt goes up the stairs with the R and down with the L using 1-2 handrails. Sit to stand : Pt is able to get out of the chair without using her arms - Balance/Special Test Scores Lower Extremity Functional Score: 30 - Goals Goal 1:: I HEP Goal Time Frame: 4-6 Weeks Goal 2:: Increase L LE strength (at time of the eval: L hip flexion 11.6#, L knee ext 9.2#, and L knee flex 7.2#, L hip abd 11.8#). Goal Time Frame: 4-6 Weeks Goal 3:: Walk with less of an antalgic gait Goal Time Frame: 4-6 Weeks Goal 4:: Increase L knee AROM 0-130 degrees with less pain Goal Time Frame: 4-6 Weeks - Rehabilitation Potential Rehabilitation Potential: Fair - Anticipated Interventions Patient/Client Instruction: Educate patient on: Condition, Plan of Care For the Purpose of:: To decrease pain, To decrease swelling/inflammation, To increase ROM, To improve nutrient delivery to tissue, To increase oxygenation perfusion, To improve muscle performance and motor function, To improve ability to perform ADL's, To increase tolerance to activity/condition/position, To improve performance and independence with ADL's, To decrease level of supervision to perform tasks, To improve ability of physical actions for home/community/work/leisure, To improve gait and locomotor functions, To improve health of tissue, To decrease soft tissue restriction, To increase flexibility/ROM, To improve endurance, To improve balance Therapeutic Exercise to Include: Strength training, Endurance training, Balance training, Postural training, Flexibilty training, Gait and locomotor training, Neuromotor development, In an aquatic setting, Passive ROM, Active ROM, Dynamic Lumbar Stabilization For the Purpose of:: To decrease pain, To decrease swelling/inflammation, To increase ROM, To improve nutrient delivery to tissue, To increase oxygenation perfusion, To improve muscle performance and motor function, To improve ability to perform ADL's, To increase tolerance to activity/condition/position, To improve performance and independence with ADL's, To decrease level of supervision to perform tasks, To improve ability of physical actions for home/community/work/leisure, To improve gait and locomotor functions, To improve health of tissue, To decrease soft tissue restriction, To increase flexibility/ROM Functional Training to Include: Gait training For the Purpose of:: To improve gait and locomotor functions Thank you for the opportunity to evaluate your patient. For Medicare and Medicare HMO plans, please review the plan of care and approve it. It will need to be FAXED BACK to us at [phone] for Medicare purposes. For Medicare only, by signing this I certify the plan of care. Please let me know if there are questions or concerns regarding this plan of care. Physician Signature: Date:
--- NOTE | 2022-07-13 18:16 | HP.PTDCSUM ---
It has been my pleasure to treat WILSON PINA referred by Dr. Jean Gandara MD, with the diagnosis of Pain in L knee for a total of 6 visit(s). Discharge Date: 07/13/22 Please see the following information for a summary of their discharge status. Subjective: Pt has done 5 visits and done it twice a week in addition in her friends pool. She is no better and no worse. There are days she can walk without a limp with a smaller amount of pain but the minute she walks over 2 miles for her job (pain 8-9/10 pain and then swelling doubles her knee in size) and has horrific pain and starts limping and having cont horrible pain. If she has to stand for a prolonged period of time (2-6 hours) her pain is horrible...pain level 7-8/10. She really does not know what to do. She feels that her lateral meniscus is torn too. She sleeps on her belly and her knee is stuck and it snaps to get in unstuck. 15% better with AT but not much better. L knee pain Pain Intensity (Out of 10): 4 % Improvement: 15 Objective/Function: LE MMT: L hip flexion 11.6#, L knee ext 16.4#, and L knee flex 9.1#, L hip abd 11.8#). L knee AROM: 0-130 degrees. Gait: Walks with decrease stance time on the L LE. Goal 1:: I HEP Goal Progress: Goal Met Goal 2:: Increase L LE strength (at time of the eval: L hip flexion 11.6#, L knee ext 9.2#, and L knee flex 7.2#, L hip abd 11.8#). Goal Progress: Goal Met Goal 3:: Walk with less of an antalgic gait Goal Progress: Not Progressing Goal 4:: Increase L knee AROM 0-130 degrees with less pain Goal Progress: Goal Met Plan: DC PT for lack of progress. Back to for next step. Discharge Comments: DC PT back to . If there are questions or concerns regarding this patient's physical therapy, please feel free to call me at [phone]. Thank you for the referral of this patient. Sincerely, Faith Dolan, MPT Balance/Gait/Functional tests - Balance/Special Test Scores Lower Extremity Functional Score: 30
== END 2022-07-13 19:00 | disposition home or self-care (01) ==
LOC: PT 18:00
PROVIDERS: PCP Family Medicine; Referring Provider Specialist; Visit Provider Specialist
DX: M25.562 Pain in left knee (principal)
CPT/HCPCS: 97113; 97161; 97530

== ENCOUNTER → 2022-08-01 | Outpatient (CLI) | payer OTHER, SELFPAY ==
--- NOTE | 2022-08-01 12:51 | CT_ITS ---
STUDY: CT SCAN OF THE LOWER EXTREMITY LEFT REASON FOR EXAM: Female, 42 years old. PRE-OP. [facility] protocol. RADIATION DOSAGE (If Supplied By Facility): CTDIvol = ( 26.58 ) mGy, DLP = ( 1832.20 ) mGycm. Individualized dose optimization techniques were used for this CT.? TECHNIQUE: Multiple axial tomographic images of the left lower extremity were obtained. Coronal and sagittal reconstructions obtained as well. COMPARISON: None. FINDINGS: Imaging of the left hip joint was obtained. Mild degree of degenerative spurring along the inferior medial aspect of the left femoral head. The joint space is well maintained. Imaging of the knee joint was obtained. There is a marked degree of joint space narrowing involving the medial compartment of the knee joint. Subchondral sclerosis. There is evidence of a small joint effusion. Imaging of the ankle joint was obtained. No significant abnormality is seen. CT/Extremity Lower without Contra IMPRESSION: Marked degree of joint space narrowing involving the medial compartment of the knee joint with small joint effusion. Electronically Signed: Jayro Purcell MD at 9:03 EDT ,
== END | disposition home or self-care (01) ==
LOC: CT 12:49
PROVIDERS: PCP Family Medicine; Referring Provider Specialist; Visit Provider Specialist
DX: M21.162 Varus deformity, not elsewhere classified, left knee (principal)
CPT/HCPCS: 73700

== ENCOUNTER → 2022-08-05 | Outpatient (CLI) | payer OTHER, SELFPAY ==
[2022-08-05 17:53] LABS: Absolute Lymphocyte Count 3.38 X10^3/uL (0.83-4.51); Absolute Neutrophil Count 4.6 X10^3/uL (2.0-7.7); Basophil# 0.06 X10^3/uL; Basophil% 0.6 % (0-1); Eosinophil# 0.49 X10^3/uL; Eosinophils% 5.1 % (0-5); Hematocrit 39.3 % (37-47); Hemoglobin 13.5 g/dL (12.0-15.0); Lymphocyte # 3.38 X10^3/ul (0.83-4.51); Lymphocyte % 35.4 % (19-41); Mean Corp Hgb Conc 34.4 g/dL (32-36); Mean Corpuscular Hgb 32.1 pg (27.0-32.0); Mean Corpuscular Volume 93.6 fL (81-99); Mean Platelet Vol. 10.5 fl (6.2-12.0); Monocyte# 0.95 X10^3/uL; Monocyte% 9.9 % (0-10); NRBC Flagged by Analyzer 0 % (0-5); Neutrophil # 4.64 X10^3/uL (2.7-7.7); Neutrophil % 48.7 % (47-70); Platelet Count 308 K/mm3 (150-450); RBC Distribution Width CV 13.1 % (11.6-14.6); RBC Distribution Width SD 44.3 fl (35.1-43.9); White Blood Count 9.6 K/mm3 (4.4-11.0)
[2022-08-05 18:36] LABS: Anion Gap 8 (5-15); BUN 16 mg/dL (7-18); BUN/Creat Ratio 14.3 RATIO (10-20); Calcium,Total 9.2 mg/dL (8.5-10.1); Chloride 103 mmol/L (98-107); Creatinine, Serum 1.12 mg/dL (0.55-1.02); EST Glomerular Filtration Rate 56 mL/min (>60); Est Glom Filt Rate - Afr Amer 68 mL/min (>60); Glucose 93 mg/dL (74-106); Potassium 3.2 mmol/L (3.5-5.1); Sodium Level 139 mmol/L (136-145)
== END | disposition home or self-care (01) ==
LOC: BFHLAB 14:13
PROVIDERS: PCP Family Medicine; Visit Provider Family Medicine
DX: Z01.818 Encounter for other preprocedural examination (principal)
CPT/HCPCS: 36415; 80048; 85025

== ENCOUNTER → 2022-08-31 | Outpatient (CLI) | payer OTHER, SELFPAY ==
[2022-08-31 12:40] LABS: Anion Gap 6 (5-15); BUN 12 mg/dL (7-18); BUN/Creat Ratio 14.7 RATIO (10-20); Calcium,Total 9.6 mg/dL (8.5-10.1); Chloride 98 mmol/L (98-107); Creatinine, Serum 0.82 mg/dL (0.55-1.02); EST Glomerular Filtration Rate 81 mL/min (>60); Est Glom Filt Rate - Afr Amer 98 mL/min (>60); Glucose 110 mg/dL (74-106); Potassium 3.1 mmol/L (3.5-5.1); Sodium Level 137 mmol/L (136-145)
== END | disposition home or self-care (01) ==
LOC: BFHLAB 09:17
PROVIDERS: PCP Family Medicine; Visit Provider Family Medicine
DX: E87.6 Hypokalemia (principal)
CPT/HCPCS: 36415; 80048

== ENCOUNTER → 2022-09-07 | Outpatient (CLI) | payer OTHER, SELFPAY ==
--- NOTE | 2022-09-07 13:27 | VDLE_ITS ---
Reason For Study: Pain RIGHT LEFT CFV is compressible, spontaneous, phasic, GSV is normal. competent and demonstrates normal CFV is compressible, spontaneous, phasic, augmentation. competent, and demonstrates normal Procedure augmentation. This is a venous duplex using B-mode, color FV is compressible, spontaneous, phasic, flow and spectral Doppler. competent and demonstrates normal Exam performed in department. augmentation. A preliminary report was called and/or faxed POP V is compressible, spontaneous, phasic, to Dr. Gandara. competent and demonstrates normal augmentation. T/P Trunk is compressible. PTV is compressible. LT PerV is compressible. VL/Venous Duplex US, Unilateral Interpretation Summary Deep veins of the left lower extremity are patent and compressible segmentally. There is no evidence of left lower extremity deep vein thrombosis. The left great saphenous vein salvador ears patent and compressible segmentally. Ordering Physician: Jean Gandara Referring Physician: Nadege Perez Performed By: Carito Boyd RDCS, RVT
== END | disposition home or self-care (01) ==
LOC: CVS 13:08
PROVIDERS: PCP Family Medicine; Referring Provider Specialist; Visit Provider Specialist
DX: M79.662 Pain in left lower leg (principal)
CPT/HCPCS: 93971

== ENCOUNTER → 2022-09-13 | Outpatient (CLI) | payer OTHER, SELFPAY ==
--- NOTE | 2022-09-13 12:11 | BI_ITS ---
MAMMOGRAPHY - BILATERAL SCREENING REASON FOR EXAM: Female, 42 years old. Routine annual screening examination. PERTINENT HISTORY: Non-contributory. TECHNIQUE: Digital bilateral breast lashae (3D mammographic acquisition) in the CC and MLO projections. 2-D mediolateral oblique (MLO) and craniocaudad (CC) views of both breasts were obtained. CAD: Full Field Digital Mammography with Computer Added Detection was performed. COMPARISON: Comparison is made with prior study dated 04/14/2016. FINDINGS: Breast Composition: The breasts are heterogeneously dense, which may obscure small masses. There are no dominant masses or suspicious calcifications. Stable small benign-appearing bilateral axillary nodes. No other significant abnormalities are identified. There has been no significant change since the prior study. BI/SCRN MAMM (CAD)W/LASHAE BILAT IMPRESSION: Stable bilateral screening mammogram. Yearly follow-up mammogram recommended. (A) ASSESSMENT CATEGORY: BIRADS Category 2: Benign. A letter regarding these results will be sent to the patient by the facility within 30 days. Approximately 10% of breast cancers are not detected by mammography. A normal mammogram should not delay biopsy of a clinically suspicious abnormality. [id number] Electronically Signed: Jayro Purcell MD at 13:01 EST ,
== END | disposition home or self-care (01) ==
LOC: OPBI 12:09
PROVIDERS: PCP Family Medicine; Visit Provider Family Medicine
DX: Z12.31 Encounter for screening mammogram for malignant neoplasm of breast (principal)
CPT/HCPCS: 77063; 77067

== ENCOUNTER 2022-10-24 11:00 | Outpatient (RCR) | payer OTHER, SELFPAY ==
--- NOTE | 2022-08-19 10:59 | HP.PTEVAL_ITS ---
Patient's Visit Information WILSON PINA is a 42 year old F referred to Physical Therapy by Juan Francisco Perez PA-C with a diagnosis of L TKR on 08-18-22. Date of Evaluation: 08/19/22 Physical Therapist: FABIENNE Cano - Visit Plan Frequency: 3x /Week Duration: 2 Months Plan: 3X/ week for 8 weeks for L knee PROM, AAROM, AROm, stretching, strengthening of L knee and hip, gait training, SLB and proprioception, functional transfers such as stairs and curb steps and sit to stand transfers with HEP. HEP. Heel slides, QS, towel gastroc stretch, Seated knee flexion off edge of mat/ bed, and seated heel slides - Subjective Pt had a L TKR (08-18-22)... the lateral meniscus was torn grade 3 and they had planned for a uni and they ended up doing a full TKR. They want us to take the MANSI wrap off today. She has one step to get into the house with a railing...everything else is on one floor. She is off work until the first of the year. She is not sleeping. She is FWB with a rolling. Dr Gandara did the surgery. She goes back on the . - Pain L knee AROM Pain Intensity (Out of 10): 4 Comment: on Oxy and Tylenol for break through and zolerto - Objective Gait: Walks with decrease stance time on the L LE and her walker was too short. Decrease stride length. L knee AROM:-2 degrees from full extension, and 78 degr ees L knee flexion. R knee AROM: 0, 124. L knee MMT: NT due to post surgery but able to AA SLR 2 X 10 and produce a small Quad contraction. Pt is able to do a AA hip abd 2 X 10. L knee girth measurements: tib tub 43.5, inf pat 45, sup pat 50 At patella 47 and 6 inch supra pat 46.1. L knee flex 8.5# and Knee ext 6.6#. Ice X 10 min post treatment - Balance/Special Test Scores Lower Extremity Functional Score: 0 WOMAC Total Score: 54 WOMAC Percentatge: 43.7500 - Goals Goal 1:: I HEP Goal Time Frame: 6-8 Weeks Goal 2:: Be able to walk indep without any antalgic gait Goal Time Frame: 6-8 Weeks Goal 3:: Be able to increase L knee AROM 0-120 degrees Goal Time Frame: 6-8 Weeks Goal 4:: Be able to go up and down steps recip with 1 rail for safety if needed. Goal Time Frame: 6-8 Weeks - Rehabilitation Potential Rehabilitation Potential: Excellent - Anticipated Interventions Patient/Client Instruction: Educate patient on: Condition, Plan of Care For the Purpose of:: To decrease pain, To decrease swelling/inflammation, To increase ROM, To improve nutrient delivery to tissue, To increase oxygenation perfusion, To improve muscle performance and motor function, To improve ability to perform ADL's, To increase tolerance to activity/condition/position, To improve performance and independence with ADL's, To decrease level of supervision to perform tasks, To improve ability of physical actions for home/community/work/leisure, To improve gait and locomotor functions, To improve health of tissue, To decrease soft tissue restriction, To increase flexibility/ROM, To improve endurance, To improve balance, To improve safety with gait Therapeutic Exercise to Include: Strength training, Endurance training, Balance training, Body mechanics, Postural training, Flexibilty training, Gait and locomotor training, Passive ROM, Active ROM For the Purpose of:: To decrease pain, To decrease swelling/inflammation, To increase ROM, To improve nutrient delivery to tissue, To increase oxygenation perfusion, To improve muscle performance and motor function, To improve ability to perform ADL's, To increase tolerance to activity/condition/position, To improve performance and independence with ADL's, To decrease level of supervision to perform tasks, To improve ability of physical actions for home/community/work/leisure, To improve gait and locomotor functions, To improve health of tissue, To decrease soft tissue restriction, To increase flexibility/ROM, To improve safety with gait Functional Training to Include: Gait training For the Purpose of:: To improve gait and locomotor functions Manual Therapy Techniques to Include: Passive ROM For the Purpose of:: To increase ROM Cryotherapy (ice pack, ice massage): Yes For the Purpose of:: To decrease swelling/inflammation Thank you for the opportunity to evaluate your patient. For Medicare and Medicare HMO plans, please review the plan of care and approve it. It will need to be FAXED BACK to us at [phone] for Medicare purposes. For Medicare only, by signing this I certify the plan of care. Please let me know if there are questions or concerns regarding this plan of care. Physician Signature : Date:
== END 2022-10-24 19:00 | disposition home or self-care (01) ==
LOC: PT 11:00
PROVIDERS: PCP Family Medicine; Visit Provider Physician Assistant Surgical
DX: M17.32 Unilateral post-traumatic osteoarthritis, left knee (principal)
CPT/HCPCS: 97016; 97110; 97161

== ENCOUNTER 2023-11-14 03:58 | Emergency (ER) | payer OTHER, MEDICAID, SELFPAY ==
[2023-11-14 03:59] VITALS: BP 155/100; PULSE 78; RESP 18; TEMP 36.6; O2SAT 98; BMI 39.4
--- NOTE | 2023-11-14 04:10 | CT_ITS ---
EXAM: CT ABDOMEN AND PELVIS WITH INTRAVENOUS CONTRAST CLINICAL INDICATION: LLQ pain TECHNIQUE: Helically acquired images were obtained of the abdomen and pelvis with intravenous contrast. This CT exam was performed using one or more of the following dose reduction techniques: automated exposure control, adjustment of the mA and/or kV according to patient size, and/or use of iterative reconstruction technique. CONTRAST: IV 100mL Isovue-370 RADIATION DOSE: CTDIvol = 16.57 mGy, DLP = 1287.71 mGy-cm COMPARISON: Unenhanced and enhanced exam May 25, 2016, there were multiple punctate medullary calcifications and apparent medullary nephrocalcinosis on the prior exam FINDINGS: LOWER THORAX: Unremarkable. Lung bases are clear. No cardiomegaly. No significant pericardial effusion. ABDOMEN: LIVER: Unremarkable. Homogeneous. No focal mass. GALLBLADDER AND BILE DUCTS: Unremarkable. No calcified gallstones. No gallbladder distention or wall edema. No intra- or extrahepatic biliary ductal dilation. PANCREAS: Unremarkable. No focal cystic or solid mass. SPLEEN: Unremarkable. Normal size without focal cystic or solid mass. ADRENALS: Unremarkable. No nodules. KIDNEYS AND URETERS: No cheikh hydroureteronephrosis or ureter stone. STOMACH AND BOWEL: Mild gas and stool in the rectosigmoid, no significant diverticular disease. Moderate stool in most of the proximal two thirds of the colon. Cecum is relatively high and anterior in position similar to prior exam. No stomach or bowel distention. No focal inflammatory change. PELVIS: APPENDIX: Nonvisualized appendix. No obvious pericecal inflammation, the cecum is high and anterior in location. BLADDER: Unremarkable. REPRODUCTIVE: There are bilateral tubal ligation clips are again seen. Similar appearance of mildly lobulated left kidney contour and fewer intramedullary calcifications in the kidneys, at least 3 in the left kidney. Prominent low-attenuation fundal endometrium up to 1.1 cm in the superior uterus. ABDOMEN and PELVIS: INTRAPERITONEAL SPACE: Unremarkable. No ascites or other fluid collection. No free air. BONES/JOINTS: Unremarkable. No suspicious lytic or blastic abnormality. SOFT TISSUES: Unremarkable. No discrete abdominal or pelvic wall hernia. VASCULATURE: Unremarkable. Abdominal aorta is non-dilated. LYMPH NODES: Mild mesenteric adenopathy similar to prior exam. CT/Abdomen/Pelvis W IV Cont ONLY IMPRESSION: 1. Moderate stool in the proximal two thirds of the colon. Mild gas and stool in the distal colon and rectum. Similar mild mesenteric adenopathy. 2. Nonvisualized appendix. High anterior location of the cecum, no evidence of volvulus or obstruction. 3. Decreased apparent medullary nephrocalcinosis of the kidneys but at least 3 calcifications are seen in the left kidney. No hydronephrosis or ureter stone. 4: Mildly prominent appearance of low attenuation in the endometrial cavity in the uterine fundus, likely mild fluid distending the fundal endometrium. Electronically Signed: Mikayla Ramirez MD at 5:39 EST ,
--- NOTE | 2023-11-14 04:17 | ED.VIS.GI ---
HPI HPI - GI History of Present Illness Chief Complaint: Abd Pain Informant: patient Abdominal Pain/Flank Pain Onset: Hours (4-5) Context: Gradual Onset Timing: Continuous Quality: Aching Location: LLQ Current Severity: Severe Maximum Severity: Severe Worsened by: Nothing Relieved by: Nothing Nausea/Vomiting/Emesis GI Symptom: Positive for Nausea; Negative for Vomiting Diarrhea/Melena/Hematochezia GI Symptom: Negative for Diarrhea, Melena or Hematochezia Associated Symptoms Associated Symptoms: Negative for Dysuria, Frequency, Hematuria or Urgency Narrative Narrative: 43-year-old female presenting with 4 to 5 hours worth of left lower quadrant pain deep in the pelvis started around bedtime and has gotten progressively worse throughout the day. Denies any recent illness prior to this or injury. No changes in urination or bowel movements lately. A little nausea with this but no vomiting. No fevers or chills. Pain does not radiate into her back or anywhere else. Has not migrated. Does not recall ever having had this before. No history of ovarian cyst that she knows of, she did have very heavy menstrual cycles and several years ago had an endometrial ablation, and has not been having cycles since then. Had a couple C-sections no other abdominal surgeries. [facility] Medical History Hx of renal calculi Hypertension Home Medications albuterol sulfate 90 mcg/actuation aerosol inhaler 1 - 2 puff inhalation Q6H PRN PRN Asthma 06/22/16 [History Last Taken Unknown] bupropion HCl 150 mg tablet,12 hr sustained-release 300 mg PO DAILY DEPRESSION 06/22/16 [History Last Taken 07/01/20] cetirizine 10 mg tablet 10 mg PO DAILY PRN Allergies 06/22/16 [History Last Taken Unknown] hydrochlorothiazide 25 mg tablet 25 mg PO DAILY BP 06/22/16 [History Last Taken 07/01/20] lorazepam 0.5 mg tablet 0.5 mg PO DAILY PRN PRN Anxiety 06/22/16 [History Last Taken Unknown] metoprolol tartrate 25 mg tablet 25 mg PO DAILY BP 06/22/16 [History Last Taken 07/01/20] fluticasone propionate 50 mcg/actuation nasal spray,suspension 1 spray NASAL DAILY PRN Allergies 09/20/18 [History Last Taken Unknown] escitalopram oxalate 5 mg tablet 5 mg PO DAILY 05/27/20 [History Last Taken Unknown] cyanocobalamin (vitamin B-12) 500 mcg tablet 300 mcg PO DAILY 06/23/20 [History Last Taken Unknown] meloxicam 15 mg tablet 15 mg PO DAILY 30 days #30 tabs 02/18/21 [Rx Last Taken Unknown] dicyclomine 10 mg capsule 20 mg (2 x 10 mg) PO Q6H PRN PRN abdominal pain #20 CAPSULES 11/14/23 [Rx Last Taken Unknown] naproxen 500 mg tablet (Naprosyn) 500 mg PO BID PRN pain #20 tabs 11/14/23 [Rx Last Taken Unknown] ondansetron 4 mg disintegrating tablet 8 mg (2 x 4 mg) PO Q8H PRN PRN Nausea #12 tabs 11/14/23 [Rx Last Taken Unknown] Allergy/AdvReac Type Severity Reaction Status Date / Time bee venom protein (honey bee) Allergy Swelling Verified 11/14/23 03:59 ketorolac [From Toradol] Allergy PASSING OUT Verified 11/14/23 03:59 Surgical History H/O arthroscopy of left knee History of endometrial ablation Hx of section Hx of tonsillectomy Social History Smoking Status: Never smoker ROS ROS ED Constitutional Constitutional ED: Denies chills or fever(s) Eyes Eyes: Denies change in vision or diplopia ENT ENT ED: Denies rhinorrhea or sore throat Cardiovascular Cardiovascular: Denies chest pain or palpitations Respiratory/Chest Respiratory/Chest: Denies cough or dyspnea Gastrointestinal Gastrointestinal: Reports as per HPI, abdominal pain and nausea; Denies diarrhea or vomiting Genitourinary Genitourinary ED: Denies dysuria or hematuria Musculoskeletal Musculoskeletal: Denies back pain or neck pain Integumentary Denies abscess or rash Neurologic Neurologic: Denies headache(s), paresthesias or weakness Psychiatric Psychiatric: Denies anxiety or suicidal thoughts EXAM Physical Exam Const Vital Signs: 11/14/23 03:59 Temperature 97.9 F Temperature Source Temporal Pulse Rate 78 Respiratory Rate 18 Blood Pressure 155/100 H Blood Pressure Mean 118 Pulse Ox 98 Oxygen Delivery Method Room Air Positive well nourished, well developed and obese Constitutional Narrative: Uncomfortable but in no distress General Appearance ED: well developed and NAD Nutritional Appearance: obese HEENT Reports moist mucous membranes normocephalic and atraumatic Eyes PERRL and EOMs intact bilaterally Neck full ROM and supple Resp normal respiratory effort and clear to auscultation bilaterally Cardio regular rate, regular rhythm and no murmurs GI non-distended GI Narrative: Tender distal left lower quadrant without guarding or rebound tenderness. Equal pulses both lower extremities. No pulsatile mass. Normal inspection of abdomen. No distention. Auscultation: normoactive bowel sounds Palpation: soft Back/Spine no CVA tenderness General Back: other FROM Extremity normal to inspection General Extremety ED: Negative for edema, pulses abnormal or tenderness General Extremity: Negative for edema or pulses abnormal Neuro oriented x3, CN's II-XII intact bilaterally and no sensory deficits noted Sensorium / Orientation: awake and alert Motor Exam: strength 5/5 throughout Skin no rashes or lesions noted and no wounds MDM MDM MDM Narrative Medical decision making narrative: Differential includes mostly GI and ovarian pathology, in addition to kidney stones which she has a history of but not with pain. Patient presents in the middle of the night when CT is readily available but ultrasound was not. For this reason CT was chosen first of the imaging of choice. A was obtained and is negative in order to rule out ectopic, although this was a very low pretest probability since she had an endometrial ablation several years ago. While working her up, she was given morphine and Zofran for her symptoms. Labs show mild nonspecific leukocytosis without a leftward shift or bandemia, and urinalysis shows microscopic hematuria but no signs of infection. Renal function and electrolytes all within normal limits. She is feeling little bit better after medications. I reviewed the CT images and the report which I agree with, there is no hydronephrosis or ureterolithiasis, and there is no sign of diverticulitis or acute inflammatory findings. She does have a significant amount of stool in the colon, however in discussing her recent stool habits, she states she had 2 large bowel movements day before yesterday and a large 1 last night. Constipation may or may not be causing her discomfort with this finding. There is no sign of an obstruction, however. She has some mild mesenteric adenopathy which could be causing the pain. Radiology mentions some mild prominence of the endometrial cavity, I suspect this is probably due to having had an ablation. There is no sign of an ovarian mass, to suggest torsion is unlikely because here, nor is there free fluid to suggest a ruptured or hemorrhagic cyst. Given all of this she understands that narcotics may not be the best option here for pain control, since it can cause worsening constipation, she agrees she is stable enough to be discharged home does not require medical admission at this time. I have given her dicyclomine prior to discharge as well as a prescription for some and naproxen. She has an allergy/insensitivity to Toradol but she can take Aleve and ibuprofen without side effect or problem so she should be okay with that, in addition to some Zofran as needed she is comfortable with that plan of following up with her doctor if symptoms do not yuko spontaneously. We discussed the consideration of a pelvic ultrasound however that test is not available at this hour and I do not think she needs it emergently at this time. Lab Data Attestation: I reviewed the patient's lab results. Labs: Laboratory Results - last 24 hr 11/14/23 11/14/23 04:00 04:57 WBC 12.6 H RBC 4.20 Hgb 12.9 Hct 38.7 MCV 92.1 MCH 30.7 MCHC 33.3 RDW Std Deviation 44.2 H RDW Coeff of Zandra 13.1 Plt Count 257 MPV 10.0 Immature Gran % (Auto) 0.400 Neut % (Auto) 66.1 Lymph % (Auto) 21.0 [place] % (Auto) 8.0 Eos % (Auto) 3.8 Baso % (Auto) 0.7 Absolute Neuts (auto) 8.3 H Absolute Lymphs (auto) 2.63 Nucleated RBC % 0 Sodium 141 Potassium 3.6 Chloride 107 Carbon Dioxide 29.0 Anion Gap 5 BUN 15 Creatinine 0.93 Estim Creat Clear Calc 93.10 Est GFR (MDRD) Af Amer 84 Est GFR (MDRD) Non-Af 69 BUN/Creatinine Ratio 16.2 Glucose 113 H Calcium 9.4 Serum , Qual NEGATIVE Urine Color Yellow Urine Clarity Clear Urine pH 7.0 Ur Specific Riley 1.010 Urine Protein Negative Urine Glucose (UA) Normal Urine Ketones Negative Urine Occult Blood 50 H Urine Nitrite Negative Urine Bilirubin Negative Urine Urobilinogen Normal Ur Leukocyte Esterase Negative Urine RBC 0 SEEN Urine WBC 0 SEEN Ur Squamous Epith Cells 0 SEEN Urine Bacteria 0 SEEN Urine Mucus 0 SEEN Radiography Diagnostic Testing: Clinical Impression(s) from Imaging Studies Abdomen/Pelvis CT 11/14/23 04:10 IMPRESSION: 1. Moderate stool in the proximal two thirds of the colon. Mild gas and stool in the distal colon and rectum. Similar mild mesenteric adenopathy. 2. Nonvisualized appendix. High anterior location of the cecum, no evidence of volvulus or obstruction. 3. Decreased apparent medullary nephrocalcinosis of the kidneys but at least 3 calcifications are seen in the left kidney. No hydronephrosis or ureter stone. 4: Mildly prominent appearance of low attenuation in the endometrial cavity in the uterine fundus, likely mild fluid distending the fundal endometrium. Electronically Signed: Mikayla Ramirez MD at 5:39 EST Reading Location ID and State: [facility] / [place] Tel , Service support , Discharge Plan Triage Chief Complaint: Abd Pain ED Provider: Edgar Ramesh Dx/Rx/DC Orders Clinical Impression: Acute mesenteric adenitis, Abdominal pain, acute, left lower quadrant Instructions: ED Abdominal Pain Unkn Cause Fem, ED Constipation (Adult), ED Adenitis, Mesenteric Prescriptions: New dicyclomine 10 mg capsule 20 mg PO Q6H PRN PRN (Reason: abdominal pain) Qty: 20 0RF ondansetron [ondansetron] 4 mg tablet,disintegrating 8 mg PO Q8H PRN PRN (Reason: Nausea) Qty: 12 0RF naproxen [Naprosyn] 500 mg tablet 500 mg PO BID PRN (Reason: pain) Qty: 20 0RF No Action meloxicam 15 mg tablet 15 mg PO DAILY 30 Days Qty: 30 1RF Rx Instructions: take as directed, stop all other nsaids bupropion HCl 150 MG tablet sustained-release 12 hr 300 mg PO DAILY cetirizine 10 MG tablet 10 mg PO DAILY PRN (Reason: Allergies) hydrochlorothiazide 25 MG tablet 25 mg PO DAILY metoprolol tartrate 25 MG tablet 25 mg PO DAILY lorazepam 0.5 MG tablet 0.5 mg PO DAILY PRN PRN (Reason: Anxiety) albuterol sulfate 1 INHALER inhaler 1 - 2 puff INHALATION Q6H PRN PRN (Reason: Asthma) fluticasone propionate 1 SPRAY spray,suspension 1 spray NASAL DAILY PRN (Reason: Allergies) escitalopram oxalate 5 MG tablet 5 mg PO DAILY cyanocobalamin (vitamin B-12) 500 MCG tablet 300 mcg PO DAILY Primary Care Provider: Nadege Perez Referrals: Nadege Perez DO [Primary Care Provider] - 3-5 Days if not improving Disposition Disposition: Home, Self Care
--- OUTSIDE RECORDS SUMMARY | 2023-11-14 04:18 | XMS RPT_ITS | CCD ---
Author Name Unknown Address [address] [place] [address] Organization [facility] Care Team Providers Care Tub Puller Name Role Phone Maya Schuster Tonie Unavailable Peyton Schusterica N Unavailable Peyton Schusterisabel Schilling Unavailable Jared Deal Primary Care Provider Allergies Allergy Classification Reported Allergen(s) Allergy Type Date of Onset Reaction(s) Facility (3 sources) ketorolac drug allergy [facility] Work Phone: (3 sources) Ketorolac Drug Allergy 7 Mental Status Change [facility] Work Phone: Medications Completed/Discontinued Medications Medication Drug Class(es) Dates Sig (Normalized) Sig (Original) azithromycin 250 mg oral tablet (6 sources) Macrolide Antimicrobial Start: 12-26-2014 End: 02-16-2015 take 2 tablets by mouth once, then take 1 tablet by mouth once daily, then take 2-5 tablets by mouth AZITHROMYCIN 250 MG TABS 2 po on day 1 then 1 po daily on days 2-5 AZITHROMYCIN [id number] Nadege Perez, DO 12 hr buPROPion hydrochloride 150 mg extended release oral tablet (12 sources) Aminoketone Start: 05-05-2016 take 1 tablet by mouth twice daily BUPROPION HCL ER (SR) 150 MG [id number] One tablet by mouth twice daily BUPROPION HCL [id number] Jamari Charles DO Problems Active Problems Problem Classification Problem Date Documented Da te Episodic/Chronic Anxiety disorders (3 sources) Generalized anxiety disorder; Translations: [Generalized anxiety disorder] Onset: 02-16-2015 02-16-2015 Chronic Fracture of lower limb (5 sources) Fracture of foot ; Translations: [Stress fracture of tibia] Onset: 07-31-2014 07-31-2014 Episodic Joint disorders and dislocations; trauma-related (1 source) Acute meniscal tear, medial; Translations: [Complex tear of medial meniscus, current injury, left knee, subsequent encounter] Episodic Mood disorders (3 sources) Depressive disorder; Translations: [Major depressive disorder, single episode, unspecified] Onset: 10-31-2014 10-31-2014 Chronic Nonmalignant breast conditions (3 sources) Fibrocystic disease of breast; Translations: [Diffuse cystic mastopathy of unspecified breast] Onset: 07-09-2007 07-09-2007 Chronic Osteoarthritis (1 source) Arthritis of knee; Translations: [Unilateral primary osteoarthritis, unspecified knee] Chronic Other congenital anomalies (2 sources) Pes cavus; Translations: [Congenital pes cavus] Onset: 01-31-2017 01-31-2017 Chronic Other nutritional; endocrine; and metabolic disorders (3 sources) Body mass index 30+ - obesity; Translations: [Obesity, unspecified] Onset: 10-31-2014 10-31-2014 Chronic Unclassified (3 sources) Adult health examination ; Translations: [Encounter for general adult medical examination without abnormal findings] Onset: 11-02-2015 11-02-2015 Past or Other Problems Problem Classification Problem Date Documented Da te Episodic/Chronic Fluid and electrolyte disorders (3 sources) Hypokalemia; Translations: [Hypokalemia] Onset: 05-19-2016 05-19-2016 Episodic Genitourinary symptoms and ill-defined conditions (6 sources) Proteinuria; Translations: [Blood in urine] Onset: 05-05-2016 05-05-2016 Episodic Immunizations and screening for infectious disease (3 sources) Exposure to communicable disease; Translations: [Contact with and (suspected) exposure to unspecified communicable disease] Onset: 02-16-2015 02-16-2015 Episodic Malaise and fatigue (3 sources) Fatigue; Translations: [Other fatigue] Onset: 05-05-2016 05-05-2016 Episodic Nonmalignant breast conditions (6 sources) Mastitis; Translations: [Breast lump] Onset: 04-01-2016 Resolved: 04-21-2016 04-01-2016 Episodic Other circulatory disease (3 sources) Elevated blood-pressure reading without diagnosis of hypertension; Translations: [Elevated blood-pressure reading, without diagnosis of hypertension] Onset: 05-05-2016 05-05-2016 Episodic Other connective tissue disease (7 sources) Foot pain; Translations: [Plantar fasciitis] Onset: 07-31-2014 07-31-2014 Episodic Other upper respiratory infections (3 sources) Acute sinusitis; Translations: [Acute sinusitis, unspecified] Onset: 12-26-2014 12-29-2014 Episodic Skin and subcutaneous tissue infections (6 sources) Cellulitis of lower limb; Translations: [Abscess of skin AND/OR subcutaneous tissue] Onset: 06-05-2015 Resolved: 04-08-2016 07-05-2015 Episodic Sprains and strains (6 sources) Sprain of carpal joint of unspecified wrist, initial encounter; Translations: [Sprain of wrist] 03-06-2013 Episodic Superficial injury; contusion (3 sources) Hematoma; Translations: [Other injury of unspecified body region] Onset: 06-05-2015 07-05-2015 Episodic Unclassified (3 sources) Screening for malignant neoplasm of breast ; Translations: [Other specified health status] Onset: 04-01-2016 Resolved: 04-08-2016 04-01-2016 Results Test Name Value Interpretation Reference Range [facility] Vital Signs Date Time Vital Sign Value Performing Clinician Facility 05-19-2016 14:17-0400 BMI (Body Mass Index) 36.34 kg/m2 [facility] Work Phone: 05-19-2016 14:17-0400 Body Temperature 98 [degF] [facility] Work Phone: 05-19-2016 14:17-0400 BP Diastolic 80 mm[Hg] [facility] Work Phone: 05-19-2016 14:17-0400 BP Systolic 116 mm[Hg] [facility] Work Phone: 05-19-2016 14:17-0400 BSA (Body Surface Area) 2.06 m2 [facility] Work Phone: 05-19-2016 14:17-0400 Pulse (Heart Rate) 86 /min Maay [facility] Work Phone: 05-19-2016 14:17-0400 Pulse Oximetry 99 % [facility] Work Phone: 05-19-2016 14:17-0400 Respiratory Rate 16 /min Maya CHAMBERLA[facility] Work Phone: 05-19-2016 14:17-0400 Weight 99.07 kg Maya CHAMBERLAIN [facility] Work Phone: 05-05-2016 10:36-0400 BP Diastolic 118 mm[Hg] Maya CHAMBERLAIN [facility] Work Phone: 05-05-2016 10:36-0400 BP Systolic 170 mm[Hg] Maya Schuster [facility] Work Phone: 05-05-2016 10:36-0400 Respiratory Rate 14 /min Maya CHAMBERLAIN [facility] Work Phone: 03-05-2013 11:18-0400 Height 165.1 cm Maya Schuster [facility] Work Phone: Encounters Encounter Date Encounter Type Care Provider Facility Start: 02-16-2022 End: 02-16-2022 Subsequent hospital visit by physician Mars Santizo MD Work Phone: [facility] Start: 02-09-2022 End: 02-09-2022 Subsequent hospital visit by physician Mars Santizo MD Work Phone: [facility] Start: 06-02-2021 End: 06-02-2021 Patient encounter procedure Maricel Mercado DO Work Phone: Orthopaedics Procedures Date Procedure Procedure Detail Performing Clinician Start: 05-05-2016 End: 05-09-2016 25-Hydroxyvitamin D2+25-Hydroxyvitamin D3 [Mass/volume] in Serum or Plasma Nahomi Brito TRAINING SPECIALIST Work Phone: Start: 02-16-2015 End: 02-18-2015 *HEABC HEP ABC Profile [id number] Nadege Perez, DO Work Phone: Start: 02-16-2015 End: 02-18-2015 *HIV antibody Nadege Perez, DO Work Phone: Start: 02-16-2015 End: 02-20-2015 Reagin antibody presence Nadege Perez, D O Work Phone: Plan of Treatment Date Care Activity Detail Author Start: 06-02-2022 Influenza vaccination INFLUENZA (Season Ended) [facility] Start: 06-02-2021 Influenza vaccination INFLUENZA (#1) [facility] Start: 04-03-2021 COVID-19 VACCINE (3 - Booster for Moderna series) COVID-19 VACCINE (3 - Booster for Moderna series) [facility] Start: 2018 Mammography MAMMOGRAM [facility] Start: 01-31-2017 End: 01-31-2017 X-ray exam of foot [facility] Work Phone: Start: 08-15-2016 End: 05-19-2016 *BMP *BMP [facility] Work Phone: Start: 05-09-2016 End: 05-09-2016 Ct abd&pelv 1+ section/regns CT Abdomen and pelvis; without and with contrast [facility] Work Phone: Start: 05-05-2016 End: 05-05-2016 *MO *MO [facility] Work Phone: Start: 05-05-2016 End: 05-05-2016 *CBC with Differential *CBC with Differential [facility] Work Phone: Start: 05-05-2016 End: 05-05-2016 *CMP Complete Metabolic Panel *CMP Complete Metabolic Panel [facility] Work Phone: Start: 05-05-2016 End: 05-09-2016 25-Hydroxyvitamin D2+25-Hydroxyvitamin D3 [Mass/volume] in Serum or Plasma *Vitamin D (Calciferol) [facility] Work Phone: Start: 05-05-2016 End: 05-05-2016 Follow Up Appt 2 weeks Follow Up Appt 2 weeks [facility] Work Phone: Start: 05-05-2016 End: 05-05-2016 Thyroid stimulating hormone (TSH) *TSH [facility] Work Phone: Start: 05-05-2016 End: 05-05-2016 Thyroxine (T4) free *T4 free [facility] Work Phone: Start: 05-05-2016 End: 05-05-2016 Triiodothyronine (T3) free *T3-Free [facility] Work Phone: Start: 05-05-2016 End: 05-05-2016 Urine, microalbumin *Urine, Microalbumin [facility] Work Phone: Start: 04-14-2016 End: 04-14-2016 Mammogram, both breasts Mammogram, Diagnostic, both breasts [facility] Work Phone: Start: 04-01-2016 End: 04-01-2016 Mammogram, screening Mammogram, Screening, both breasts [facility] Work Phone: Start: 02-16-2015 End: 02-16-2015 *CHLGC - Chlamydia/GC DNA Probe [id number] *CHLGC - Chlamydia/GC DNA Probe [id number] [facility] Work Phone: Start: 02-16-2015 End: 02-18-2015 *HEABC HEP ABC Profile [id number] *[facility] HEP ABC Profile [id number] [facility] Work Phone: Start: 02-16-2015 End: 02-18-2015 *HIV antibody *HIV antibody [facility] Work Phone: Start: 02-16-2015 End: 02-20-2015 Reagin antibody presence *[facility] Work Phone: Start: 09-11-2014 End: 09-11-2014 X-ray exam of foot X-Ray, Foot [facility] Work Phone: Start: 07-31-2014 End: 07-31-2014 X-ray exam of foot X-Ray, Foot [facility] Work Phone: Start: 2008 HPV TESTING HPV TESTING [facility] Start: 1999 PAP TESTING PAP TESTING [facility] Start: 1997 Urine microalbumin profile DTAP,TDAP,TD (1 - Tdap) [facility] Start: 1996 HEPATITIS C SCREENING HEPATITIS C SCREENING [facility] Start: 1996 HIV SCREENING HIV SCREENING [facility] Start: 1990 Adult depression screening assessment DEPRESSION SCREENING [facility] End: 07-02-2022 Mri any jt lower extrem w/o contrast matrl MRI KNEE WO IVCON LT Radiology Routine Other closed fracture of left patella, initial encounter 1 Occurrences starting 06/02/2021 until 07/02/2022 [facility] Payers Date Payer Category Payer Unknown [id number] 1. [id number] Social History Date Type Detail Facility Start: 06-02-2021 Tobacco smoking stat us NHIS Never smoker [facility] Start: 06-02-2021 Tobacco use and exposure Never used [facility] Start: 06-02-2021 Alcohol intake Current non-dr sinker winder of alcohol (finding) [facility] Start: 1980 Sex Assigned At Not on file [facility] Exposure to SARS-CoV -2 (event) Not sure [facility] Progress note 06-30-2021 Note Date & Type Note Facility 06-30-2021 Note HNO ID: [id number] Author: Maricel Mercado, DO Service: ? Author Type: Physician Type: Progress Notes Filed: 06/30/2021 12:48 PM Note Text: Follow Up Visit Chief Complaint Jesenia Byrnes is a 41 year old female who presents today for follow up office visit. Patient presents with: Left Knee - Follow Up Follow Up History of Present Illness PAIN EVALUATION 06/30/2021 0809 Pain Level: 3 Pain Location: Knee-Left Description: Dull;Aching Duration Amount of Time: 1 Duration Units: Years Frequency: Continuous HPI: Jesenia Byrnes is a 41 year old female for a follow up visit left knee mri. Pain history is noted as above. Denies numbness, tingling, fever, chills or other constitutional symptoms. States pain medially with prolonged walking. Is there any overall improvement in your condition? No Any new injury, since being seen last: No REVIEW OF SYMPTOMS: Patient did not have, and does not currently have, any weight loss, malaise, fever, chills, headache, chest pain, chest pressure, palpitations, cough, shortness of breath, orthopnea, paroxsymal nocturnal dyspnea, nausea, vomiting, diarrhea, constipation, melena, hematochezia, urinary difficulties, prolonged bleeding, easily bruising, heat or cold intolerance, new onset joint pain or swelling, new onset extremity weakness or numbness, new onset auditory or visual disturbances, lightheadedness, dizziness, partial loss of consciousness or full loss of consciousness. Current Outpatient Medications Medication Sig - hydrochlorothiazide 25 mg ORAL Tab Take one(1) tablet daily. - metoprolol succinate XL (TOPROL XL) 25 mg ORAL Tb24 Take one(1) tablet daily. No current facility-administered medications for this visit. Physical Exam Vitals: There were no vitals taken for this visit. Psych: Pleasant, good affect and mood General Appearance: Well appearing, alert, in no acute distress, well-hydrated, well nourished.. Skin: Skin color, texture, turgor normal, no suspicious rashes or lesions. Peripheral Pulses: Normal. Neurologic: Gait normal. Reflexes normal and symmetric. Sensation grossly intact.. Lymph Nodes: No cervical lymphadenopathy, No supraclavicular lymphadenopathy, No axillary lymphadenopathy. and No inguinal lymphadenopathy.. Respiratory: No recent pulmonary infection, hemoptysis, chronic cough, or shortness of breath at rest Rheumatologic: Joint deformities: Left knee painKnee Musculoskeletal Exam Range of Motion Range of Motion - Right Right knee range of motion is normal. Range of Motion - Left Left knee range of motion is normal. Strength Strength - Right Right knee strength is normal. Right Knee Exam Right knee exam is normal. Muscle Strength The patient has normal right knee strength. Range of Motion The patient has normal right knee ROM. Other Erythema: absent Sensation: normal Pulse: present Swelling: none Comments: Neg homans bilaterally Left Knee Exam Tenderness The patient is experiencing tenderness in the medial joint line. Range of Motion The patient has normal left knee ROM. Extension: normal Other Erythema: absent Sensation: normal Pulse: present Swelling: none Assessment and Plan Radiographs: I have independently reviewed films and my findings are the same. and I have reviewed the images with the patient and family. Last MRI Knee - Impression Only MRI KNEE WO IVCON LT Exam End: 06/17/2021 3:59 PM (Final result) Impression: IMPRESSION: COMPLEX NONDISPLACED TEAR MEDIAL MENISCUS. OSTEOARTHRITIS, MOST PROMINENT IN THE MEDIAL COMPARTMENT. 1.3 CM GANGLION CYST AT THE TIBIOFIBULAR ARTICULATION. ... Complete Results Impression: No diagnosis found. Rationale for Viscosupplementation: Initial Request As a part of a multimodal treatment plan, we are requesting authorization of hyaluronic acid viscosupplementation injections for the improvement of symptoms related to osteoarthritis. Authorization is being requested for treatment of the Left knee. Rationale for authorization of these injections is based on the following elements: Signs and Symptoms Length of symptoms > 3 months Pain interferes with ADLs? Yes Radiographic evidence of OA? Yes Previous Treatments Bracing attempted? Yes Formal PT attempted? Yes NSAID medication attempted? Yes Corticosteroid injection attempted? Yes Weight management attempted? Yes Patient continues to be symptomatic despite above treatment attempts. Requested Viscosupplementation Preferred product: Orthovisc Alternative product: Euflexxa or payor preferred Discussed treatment options as patient has no swelling today MRI confirms pretty significant medial joint line arthritis as well as beginnings of the lateral joint line and patellofemoral arthritis discussed that she would be a good candidate for gel injection. Patient in agreement of plan will sign her up for gel injections. (more content not included)... [facility] Progress note 06-17-2021 Note Date & Type Note Facility 06-17-2021 Note HNO ID: [id number] Author: RT Nicki([place]) Service: ? Author Type: Technologist Type: Progress Notes Filed: 06/17/2021 3:31 PM Note Text: Radiology Service Progress Note PATIENT NAME: Jesenia Byrnes DATE OF SERVICE: June 17, 2021 TIME: 3:31 PM PATIENT IDENTITY VERIFICATION COMPLETED USING TWO (2) IDENTIFIERS: Name and Date of confirmed by patient verbally. FALL SCREENING: Has the patient had 2 falls in the last year or 1 fall with injury or currently using an Ambulatory Assistive Device (Walker, Cane, Wheelchair, Crutches, etc.)? No PATIENT GENDER DATA: Female. status: : No status: NO. PATIENT RELEVANT IMPLANT DATA REVIEWED: Yes RADIOLOGY DEPARTMENT: MR; Exam(s) Completed: Lower MSK: Knee, left PERIPHERAL IV DATA: Not applicable SIGNED BY: CARMEN Caceres) June 17, 2021 3:31 PM [facility] Progress note 06-02-2021 Note Date & Type Note Facility 06-02-2021 Note HNO ID: [id number] Author: Maricel Mercado, DO Service: ? Author Type: Physician Type: Progress Notes Filed: 06/02/2021 3:52 PM Note Text: Follow Up Visit Chief Complaint Jesenia Byrnes is a 40 year old female who presents today for follow up office visit. Patient presents with: Left Knee - Established Patient, Knee Pain History of Present Illness PAIN EVALUATION 06/02/2021 1534 Pain Level: 6 Pain Location: Knee-Left Description: Aching;Dull;Throbbing Duration Amount of Time: ? ongoing Frequency: Continuous Intervention/Comfort measure: Relaxation;Reposition;Other: See comment;Medication;Exercise;Cold Physical therapy HPI: Jesenia Byrnes is a 40 year old female for a follow up visit left knee pain. Worse with extermes of Motion and bending knees. Extremes of motion are painful. Pain history is noted as above. Denies numbness, tingling, fever, chills or other constitutional symptoms. Is there any overall improvement in your condition? No Any new injury, since being seen last: No REVIEW OF SYMPTOMS: Patient did not have, and does not currently have, any weight loss, malaise, fever, chills, headache, chest pain, chest pressure, palpitations, cough, shortness of breath, orthopnea, paroxsymal nocturnal dyspnea, nausea, vomiting, diarrhea, constipation, melena, hematochezia, urinary difficulties, prolonged bleeding, easily bruising, heat or cold intolerance, new onset joint pain or swelling, new onset extremity weakness or numbness, new onset auditory or visual disturbances, lightheadedness, dizziness, partial loss of consciousness or full loss of consciousness. Current Outpatient Medications Medication Sig - hydrochlorothiazide 25 mg ORAL Tab Take one(1) tablet daily. - metoprolol succinate XL (TOPROL XL) 25 mg ORAL Tb24 Take one(1) tablet daily. No current facility-administered medications for this visit. Physical Exam Vitals: There were no vitals taken for this visit. Psych: Pleasant, good affect and mood General Appearance: Well appearing, alert, in no acute distress, well-hydrated, well nourished.. Skin: Skin color, texture, turgor normal, no suspicious rashes or lesions. Peripheral Pulses: Normal. Neurologic: Gait normal. Reflexes normal and symmetric. Sensation grossly intact.. Lymph Nodes: No cervical lymphadenopathy, No supraclavicular lymphadenopathy, No axillary lymphadenopathy. and No inguinal lymphadenopathy.. Respiratory: No recent pulmonary infection, hemoptysis, chronic cough, or shortness of breath at rest Rheumatologic: Joint deformities: Left knee pain Right Knee Exam Right knee exam is normal. Muscle Strength The patient has normal right knee strength. Tenderness The patient is experiencing no tenderness. Range of Motion The patient has normal right knee ROM. Left Knee Exam Tenderness The patient is experiencing tenderness in the medial joint line and medial retinaculum. Range of Motion Extension: normal Flexion: normal Tests Catalina: Medial - positive Pivot shift: negative Patellar apprehension: negative Other Erythema: absent Sensation: normal Pulse: present Swelling: mild Assessment and Plan Radiographs: No imaging to review. Impression: Encounter Diagnosis ICD-10-CM 1. Arthritis of knee M17.10 2. Complex tear of medial meniscus of left knee as current injury, subsequent encounter S83.232D 3. Stress fracture of left tibia with delayed healing, subsequent encounter M84.362G Continued pain after mri a year ago which showed stress fractures Still with pain and possibility of surgical intervention was discussed, so need for new MRI of left knee today Today, in detail, through a thorough evaluation, we discussed possible etiologies of pain and our plans for further diagnostic and therapeutic interventions. We discussed strategies for decreasing pain and improving strength, stability and motion. Patient's questions were answered in detailed. Patient verbalizes understanding and agrees with the treatment plan as discussed. Maricel Mercado DO [facility] History of Present illness Narrative 06-02-2021 Maricel Mercado DO - 06/02/2021 3:44 PM EDT Note Date & Type Note Facility 06-02-2021 History of Presen t illness Narrative Follow Up Visit Chief Complaint Jesenia Byrnes is a 40 year old female who presents today for follow up office visit. Patient presents with: Left Knee - Established Patient, Knee Pain History of Present Illness PAIN EVALUATION 06/02/2021 1534 Pain Level: 6 Pain Location: Knee-Left Description: Aching;Dull;Throbbing Duration Amount of Time: ongoing Frequency: Continuous Intervention/Comfort measure: Relaxation;Reposition;Other: See comment;Medication;Exercise;Cold Physical therapy HPI: Jesenia Byrnes is a 40 year old female for a follow up visit left knee pain. Worse with extermes of Motion and bending knees. Extremes of motion are painful. Pain history is noted as above. Denies numbness, tingling, fever, chills or other constitutional symptoms. Is there any overall improvement in your condition? No Any new injury, since being seen last: No REVIEW OF SYMPTOMS: Patient did not have, and does not currently have, any weight loss, malaise, fever, chills, headache, chest pain, chest pressure, palpitations, cough, shortness of breath, orthopnea, paroxsymal nocturnal dyspnea, nausea, vomiting, diarrhea, constipation, melena, hematochezia, urinary difficulties, prolonged bleeding, easily bruising, heat or cold intolerance, new onset joint pain or swelling, new onset extremity weakness or numbness, new onset auditory or visual disturbances, lightheadedness, dizziness, partial loss of consciousness or full loss of consciousness. Current Outpatient Medications Medication Sig hydrochlorothiazide 25 mg ORAL Tab Take one(1) tablet daily. metoprolol succinate XL (TOPROL XL) 25 mg ORAL Tb24 Take one(1) tablet daily. No current facility-administered medications for this visit. Physical Exam Vitals: There were no vitals taken for this visit. Psych: Pleasant, good affect and mood General Appearance: Well appearing, alert, in no acute distress, well-hydrated, well nourished.. Skin: Skin color, texture, turgor normal, no suspicious rashes or lesions. Peripheral Pulses: Normal. Neurologic: Gait normal. Reflexes normal and symmetric. Sensation grossly intact.. Lymph Nodes: No cervical lymphadenopathy, No supraclavicular lymphadenopathy, No axillary lymphadenopathy. and No inguinal lymphadenopathy.. Respiratory: No recent pulmonary infection, hemoptysis, chronic cough, or shortness of breath at rest Rheumatologic: Joint deformities: Left knee pain Right Knee Exam Right knee exam is normal. Muscle Strength The patient has normal right knee strength. Tenderness The patient is experiencing no tenderness. Range of Motion The patient has normal right knee ROM. Left Knee Exam Tenderness The patient is experiencing tenderness in the medial joint line and medial retinaculum. Range of Motion Extension: normal Flexion: normal Tests Catalina: Medial - positive Pivot shift: negative Patellar apprehension: negative Other Erythema: absent Sensation: normal Pulse: present Swelling: mild Assessment and Plan Radiographs: No imaging to review. Impression: Encounter Diagnosis ICD-10-CM 1. Arthritis of knee M17.10 2. Complex tear of medial meniscus of left knee as current injury, subsequent encounter S83.232D 3. Stress fracture of left tibia with delayed healing, subsequent encounter M84.362G Continued pain after mri a year ago which showed stress fractures Still with pain and possibility of surgical intervention was discussed, so need for new MRI of left knee today Today, in detail, through a thorough evaluation, we discussed possible etiologies of pain and our plans for further diagnostic and therapeutic interventions. We discussed strategies for decreasing pain and improving strength, stability and motion. Patient's questions were answered in detailed. Patient verbalizes understanding and agrees with the treatment plan as discussed. Maricel Mercado DO documented in this encounter [facility] Evaluation note Note Date & Type Note Facility documented in this encounter [facility] Reason for Referral Status Reason Specialty Diagnoses / Procedures Referred By Contact Referred To Contact Authorized Auto-Generated Referral MR IMAGING Diagnoses Other closed fracture of left patella, initial encounter Procedures MRI KNEE WO IVCON LT MRI, JOINT OF LEG Maricel Mercado DO [address] [id number] Mr Imaging Summary Purpose Family History No Family History Records FoundNo Family History Records Found Advance Directives No Advanced Directives Records FoundNo Advanced Directives Records Found Additional Source Comments Source Comments (unrecognize d section and content) In the event this informatio n is protected by the Federal Confidentiality of Alcohol and Drug Abuse Patient Records regulations: The Federal rules restrict any use of the information to criminally investigate or prosecute any alcohol or drug abuse patient.[facility] the event this information is protected by the Federal Confidentiality of Alcohol and Drug Abuse Patient Records regulations: The Federal rules restrict any use of the information to criminally investigate or prosecute any alcohol or drug abuse patient.[facility] the event this information is protected by the Federal Confidentiality of Alcohol and Drug Abuse Patient Records regulations: The Federal rules restrict any use of the information to criminally investigate or prosecute any alcohol or drug abuse patient.[facility] Reason for Visit (unrecogniz ed section and content) INFORMATION SOURCE (unrecogn ized section and content) DATE CREATED AUTHOR AUTHOR'S MARKO ADRIENNELETICIA 03/17/2022 [facility] [place] Care Teams (unrecognized sec tion and content) FOR RECORDS PERTAINING TO PATIENTS WHO ARE OR HAVE BEEN ENROLLED IN A CHEMICAL DEPENDENCY/SUBSTANCEABUSE PROGRAM, SOME INFORMATION MAY BE OMITTED. This clinical summary was aggregated from multiple sources. Caution should be exercised in using it in the provision of clinical care. This summary normalizes information from multiple sources, and as a consequence, information in this document may materially change the coding, format and clinical context of patient data. In addition, data may be omitted in some cases. CLINICAL DECISIONS SHOULD BE BASED ON THE PRIMARY CLINICAL RECORDS. [employer] provides no warranty or guarantee of the accuracy or completeness of information in this document.
[2023-11-14] MEDS: Ondansetron 4 MG/2 ML Vial IV (04:20)
[2023-11-14] MEDS: Morphine 4 MG/ML Syringe IV (04:20)
[2023-11-14 04:22] LABS: Absolute Lymphocyte Count 2.63 X10^3/uL (0.83-4.51); Absolute Neutrophil Count 8.3 X10^3/uL (2.0-7.7); Basophil# 0.09 X10^3/uL; Basophil% 0.7 % (0-1); Eosinophil# 0.48 X10^3/uL; Eosinophils% 3.8 % (0-5); Hematocrit 38.7 % (37-47); Hemoglobin 12.9 g/dL (12.0-15.0); Lymphocyte # 2.63 X10^3/ul (0.83-4.51); Mean Corp Hgb Conc 33.3 g/dL (32-36); Mean Corpuscular Hgb 30.7 pg (27.0-32.0); Mean Corpuscular Volume 92.1 fL (81-99); Monocyte# 1.01 X10^3/uL; NRBC Flagged by Analyzer 0 % (0-5); Neutrophil # 8.29 X10^3/uL (2.7-7.7); Neutrophil % 66.1 % (47-70); Platelet Count 257 K/mm3 (150-450); RBC Distribution Width CV 13.1 % (11.6-14.6); RBC Distribution Width SD 44.2 fl (35.1-43.9); White Blood Count 12.6 K/mm3 (4.4-11.0)
[2023-11-14 04:32] LABS: Internal QC Validated? YES +Cl - CLEAR BKGD; Pregnancy, Serum, hCG Quali. NEGATIVE Negative
[2023-11-14 04:38] LABS: Anion Gap 5 (5-15); BUN 15 mg/dL (7-18); BUN/Creat Ratio 16.2 RATIO (10-20); Calcium,Total 9.4 mg/dL (8.5-10.1); Chloride 107 mmol/L (98-107); Creatinine, Serum 0.93 mg/dL (0.55-1.02); EST Glomerular Filtration Rate 69 mL/min (>60); Est Glom Filt Rate - Afr Amer 84 mL/min (>60); Glucose 113 mg/dL (74-106); Potassium 3.6 mmol/L (3.5-5.1); Sodium Level 141 mmol/L (136-145)
[2023-11-14] MEDS: 0.9% Normal Saline (1000mL) 1,000 ML 125 ML IV (05:01)
[2023-11-14 05:05] LABS: Bacteria 0 SEEN /hpf (None Seen); Mucous, Urine 0 SEEN /hpf (<or=2+); Red Blood Cells-Urine 0 SEEN /hpf (0-5); Squamous Epithelial Cells - UA 0 SEEN /hpf (5-10); White Blood Cells 0 SEEN /hpf (0-5)
[2023-11-14 05:06] LABS: Color, Urine Yellow (Yellow); Glucose, Dipstick Normal (Normal); Ketone-Dipstick Negative (Negative); Leukocyte Esterase-Dipstick Negative /ul (Negative); Nitrite-Dipstick Negative (Negative); Occult Blood-Urine 50 /ul (Negative); Protein-Dipstick Negative (Negative); Urine Bilirubin Dipstick Negative (Negative); Urine Clarity Clear (Clear); Urine Urobilinogen Normal (Normal)
[2023-11-14] MEDS: Dicyclomine 10 MG Capsule 20 MG PO (06:17)
[2023-11-14 06:22] VITALS: BP 136/90; PULSE 77; RESP 18
== END 2023-11-14 06:23 | disposition home or self-care (01) ==
PROVIDERS: Emergency Provider Emergency Medicine; PCP Family Medicine; Visit Provider Emergency Medicine
DX: I88.0 Nonspecific mesenteric lymphadenitis (principal); R31.29 Other microscopic hematuria; I10 Essential (primary) hypertension; E66.9 Obesity, unspecified; R10.32 Left lower quadrant pain
CPT/HCPCS: 74177; 80048; 81001; 84703; 85025; 96361; 96374; 96375; 99283; J7030; Q9967; A4216; J2405

== ENCOUNTER 2024-05-09 07:27 | Day surgery (SDC) | payer OTHER, MEDICAID, SELFPAY ==
[2024-05-09] VITALS (8 sets, daily range): BP systolic 114–142; BP diastolic 87–101; PULSE 66–81; RESP 16–20; TEMP 35.9–36.4; O2SAT 89–100; BMI 38.1
--- NOTE | 2024-05-09 | COLBX_PTH ---
PATIENT: WILSON PINA LOC: EN U#:[id number] AGE/SX: 43/F ROOM: RE05/09/[address]: Dr. Sly Cruz MD : 1980 BED: DIS: 05/09/2024 SPEC #: [id number] RECD: 05/09/24 13:10 STATUS: LESLIE RODRI #: [id number] RUBY: 05/09/24 00:[address]: Sly Cruz DEPT: SURGICAL PATHOLOGY RECD BY: Govind Rayo ENTERED: 05/09/24 13:11 SP TYPE: COLON BX OTHR DR: Dr. Nadege Perez DO Tissues: Transverse colon Procedures: Surgery Specimen Level IV HEADER OPERATION: Colonoscopy with biopsy PRE-OP DIAGNOSIS: Encounter for screening for malignant neoplasm of colon TISSUE SUBMITTED: Transverse polyp biopsy MICROSCOPIC DIAGNOSIS Transverse colon polyp, biopsy: Tubular adenoma. AM/mr 05/10/2024 MICROSCOPIC DESCRIPTION Slides are reviewed. GROSS DESCRIPTION Received in fixative is one container labeled with the patient's name and designated Transverse polyp biopsy. The specimen consists of one irregular fragment of light alegria soft tissue that measures 0.3 x 0.3 x 0.1 cm. The specimen is totally submitted in one cassette. KAT/ 05/09/2024 TC:5 CPT:40286
--- NOTE | 2024-05-09 07:36 | PCM.PRE.AN2 ---
ASA Classification* ASA Classification ASA Classification: 3 Assessment & Plan Anesthesia* Anesthesia Assessment Anesthesia Assessment: Discussed sedation and/or anesthesia options, risks, benefits, and alternatives with patient/parents/legal guardian/POA. Questions invited. The patient/parents/legal guardian/POA seems to understand and agrees to proceed with anesthesia plan. Reviewed the physical assessment, medical history, allergy history and patient home medications list prior to surgery/procedure/anesthetic and documented any changes. Performed airway and anesthesia risk assessments. Anesthesia Type Anesthesia Type: MAC (*see written pre anesthesia record for full assessment) Anesthesia Focused Assessment* Airway Assessment Mouth opens: >3 cm Mallampati Score: II Focused Labs Anesthesia Preop lab: CBC WBC 12.6 K/mm3 (4.4-11.0) H 11/14/23 04:00 RBC 4.20 M/mm3 (4.2-5.4) 11/14/23 04:00 Hgb 12.9 g/dL (12.0-15.0) 11/14/23 04:00 Hct 38.7 % (37-47) 11/14/23 04:00 Plt Count 257 K/mm3 (150-450) 11/14/23 04:00 CHEMISTRY Potassium 3.6 mmol/L (3.5-5.1) 11/14/23 04:00 Sodium 141 mmol/L (136-145) 11/14/23 04:00 Phosphorus 2.9 mg/dL (2.5-4.9) 06/13/13 09:00 BUN 15 mg/dL (7-18) 11/14/23 04:00 Creatinine 0.93 mg/dL (0.55-1.02) 11/14/23 04:00 Glucose 113 mg/dL (74-106) H 11/14/23 04:00 TSH 0.70 uIU/mL (0.358-3.74) 02/24/17 08:29 COAG Urine Test Negative Negative 09/26/18 12:10 Pre-Assessment Diagnosis/Proposed Procedure Planned Operative Procedure(s): CSCOPE OA Anesthesia History 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 When Was Last Pacemaker Check QUESTION #4 FULL TEXT: You/Your Family Experience fever (hyperthermia) with Anesthesia Last Oral Intake Last Oral intake: Last Oral Intake NPO since Meds taken in AM with sips of water? 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 Female Yes 05/06/24 14:34 HX of Motion Sickness No 05/06/24 14:34 HX of N/V After Surgery Yes 05/06/24 14:34 Non-Smoker Yes 05/06/24 14:34 Duration of Surgery greater No 05/06/24 14:34 than 60 minutes Number of Risk Factors 3 05/06/24 14:34 PONV Score Moderate Risk 05/06/24 14:34 Height & Weight Height & Weight: Anesthesia: Height & Weight Height 5 ft 5 in 04/12/24 14:36 Respiratory Assessment Respiratory Assessment - multi punch operator: Respiratory Tract Infection Hx - multi punch operator Hx Respiratory Tract Infection No 05/06/24 14:34 STOP Sleep Apnea STOP Sleep Apnea - multi punch operator: STOP Sleep Apnea - multi punch operator Hx Hypertension Yes: CONTROLLED WITH MED 05/06/24 14:34 Hx Sleep Apnea No 05/06/24 14:34 CPAP BIPAP Do you snore loudly (louder Yes 05/06/24 14:34 than talking or can be heard Do you often feel tired/ No 05/06/24 14:34 fatigued/ sleepy during daytime? Has anyone observed you stop No 05/06/24 14:34 breathing during sleep? STOP Results Positive 05/06/24 14:34 QUESTION #5 FULL TEXT : Do you snore loudly (louder than talking or can be heard through closed doors)? 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 Specify any problems Hx of Preganancy in last 3 No 05/06/24 14:34 Months Nurse Filling Out Transfusion DSCHRIBER 05/06/24 14:34 & Questions: Date: 05/06/24 05/06/24 14:34 Time: 14:36 05/06/24 14:34 Patient unable to answer at this time (ie. confused, unrespo /Reproduction History /Reproductive History - multi punch operator: /Reproductive Hx- multi punch operator Hx Now No 05/06/24 14:34 Gestational Age (in weeks): EDC: Hx Hx Para Hx Section SAB No 05/06/24 14:34 Active Medications Active Medications: Current Medications Generic Name Dose Route Start Last Admin Trade Name Freq PRN Reason Stop Dose Admin Lactated Ringer's 1,000 mls @ 15 mls/hr 05/09/24 07:45 IV .Q48H JESSY PFSH Medical History Wears glasses Alcohol use Arthritis DVT (deep venous thrombosis) Restless legs Back pain Migraine headache Injury of head and neck Non-smoker Asthma History of edema Depression with anxiety Hypertension Home Medications ?Medication ?Instructions ?Recorded ?Last Taken ?Type albuterol sulfate 90 mcg/actuation 1 - 2 puff inhalation Q6H PRN PRN 06/22/16 Unknown History aerosol inhaler Asthma bupropion HCl 150 mg tablet,12 hr 300 mg PO DAILY DEPRESSION 06/22/16 07/01/20 History sustained-release cetirizine 10 mg tablet 10 mg PO DAILY PRN Allergies 06/22/16 Unknown History hydrochlorothiazide 25 mg tablet 25 mg PO DAILY BP 06/22/16 07/01/20 History lorazepam 0.5 mg tablet 0.5 mg PO DAILY PRN PRN Anxiety 06/22/16 Unknown History metoprolol tartrate 25 mg tablet 25 mg PO DAILY BP 06/22/16 07/01/20 History fluticasone propionate 50 1 spray NASAL DAILY PRN Allergies 09/20/18 Unknown History mcg/actuation nasal spray,suspension cyanocobalamin (vitamin B-12) 500 300 mcg PO DAILY 06/23/20 Unknown History mcg tablet naproxen 500 mg tablet (Naprosyn) 500 mg PO BID PRN pain #20 tabs 11/14/23 Unknown Rx meloxicam 15 mg tablet 15 mg PO DAILY PRN PRN pain 05/06/24 Unknown History Allergy/AdvReac Type Severity Reaction Status Date / Time bee venom protein (honey bee) Allergy Swelling Verified 05/06/24 14:30 ketorolac (From Toradol) Allergy PASSING OUT Verified 05/06/24 14:30 adhesive tape AdvReac Rash Verified 05/06/24 14:30 Family History Mother Colon polyps Surgical History History of cystoscopy History of hysteroscopy Hx of total knee arthroplasty Hx of tonsillectomy Hx of section History of endometrial ablation H/O arthroscopy of left knee Social History current occupational status: employed Smoking Status: Never smoker substance use type: does not use Review of Systems (Anesthesia) ROS Narrative System reviewed and no additional complaints, except as documented.
[2024-05-09] MEDS: Lactated Ringers 1,000 ML 15 ML IV (07:59)
--- NOTE | 2024-05-09 08:32 | HP.PCM_ITS ---
[facility] - General General Date of Service: 05/09/24 Chief Complaint: Colon cancer screening HPI Narrative WILSON PINA, is a 43 F who presents for screening colonoscopy. She confirms her preappointment questionnaire that she has not experienced any change in her bowel habits-and particularly denies any notice of blood.She does share that most weeks it takes a couple of days to have a bowel movement. She also reports that back in November she was seen in the emergency department for left lower quadrant discomfort that was attributed to constipation. She also sharesa family history of Polyps in her mother. Lastly she confirms that her prep was completed successfully and that her output is now clear. [facility] Medical History Wears glasses Alcohol use Arthritis DVT (deep venous thrombosis) Restless legs Back pain Migraine headache Injury of head and neck Non-smoker Asthma History of edema Depression with anxiety Hypertension Home Medications ?Medication ?Instructions ?Recorded ?Last Taken ?Type albuterol sulfate 90 mcg/actuation 1 - 2 puff inhalation Q6H PRN PRN 06/22/16 Unknown History aerosol inhaler Asthma bupropion HCl 150 mg tablet,12 hr 300 mg PO DAILY DEPRESSION 06/22/16 05/08/24 History sustained-release cetirizine 10 mg tablet 10 mg PO DAILY PRN Allergies 06/22/16 05/08/24 History hydrochlorothiazide 25 mg tablet 25 mg PO DAILY BP 06/22/16 05/08/24 History lorazepam 0.5 mg tablet 0.5 mg PO DAILY PRN PRN Anxiety 06/22/16 Unknown History metoprolol tartrate 25 mg tablet 25 mg PO DAILY BP 06/22/16 05/09/24 History fluticasone propionate 50 1 spray NASAL DAILY PRN Allergies 09/20/18 Unknown History mcg/actuation nasal spray,suspension cyanocobalamin (vitamin B-12) 500 300 mcg PO DAILY 06/23/20 05/08/24 History mcg tablet naproxen 500 mg tablet (Naprosyn) 500 mg PO BID PRN pain #20 tabs 11/14/23 Unknown Rx meloxicam 15 mg tablet 15 mg PO DAILY PRN PRN pain 05/06/24 Unknown History Allergy/AdvReac Type Severity Reaction Status Date / Time bee venom protein (honey bee) Allergy Swelling Verified 05/09/24 07:46 ketorolac (From Toradol) Allergy PASSING OUT Verified 05/09/24 07:46 adhesive tape AdvReac Rash Verified 05/09/24 07:46 Family History Mother Colon polyps Surgical History History of cystoscopy History of hysteroscopy Hx of total knee arthroplasty Hx of tonsillectomy Hx of section History of endometrial ablation H/O arthroscopy of left knee Social History current occupational status: employed Smoking Status: Never smoker substance use type: does not use Past Medical/Surgical History Planned Operation Planned Operative Procedure(s): CSCOPE OA S.O.S: No Previous Hospitalizations/Surgeries HX Hospitalizations: No HX of Surgeries: CSECTION X3 WISDOM TEETH D&C 2006 TONSILLECTOMY 2007 LEFT KNEE SCOPE GANGLION CYST LEFT MIDDLE FINGER 2000 TUBAL LIGATION AFTER 2010 CSECTION 2016 KIDNEY STONE/ESWL,CYSTOSCOPY hysteroscopy suction d&c 2018 Any Problems With Anesthesia: Yes (N,V) You/Your Family Experience Fever (Hyperthermia) With Anes: No Cholinesterase deficiency: No Cardiovascular Hx Chest Pain within Last 2 months: No Hx of Irregular Heartbeat and/or Afib: No Hx Heart Attack: No Hx Congestive Heart Failure: No Hx Rheumatic Fever: No Hx Hypertension: Yes (CONTROLLED WITH MED) Hx Internal Defibrillator: No Hx Pacemaker: No Hx Cardiac Catheterization: No Hx Cardiac Surgery/Stents/Etc.: No Hx Stress Test: No (.) Hx Pain in Legs when Walking/Leg Cramps: Yes (left knee) Respiratory Chronic Cough: No HX of Shortness of Breath: No Hoarseness: No Hx Chronic Obstructive Pulmonary Disease (COPD): No Hx Asthma: Yes (ASTHMATIC REACTION WITH ALLERGIES) Hx Emphysema: No Hx Sleep Apnea: No Hx Respiratory Tract Infection/Cold (presently): No Do You Snore Loudly (louder than talking or can be heard): Yes Do You Often Feel Tired/ Fatigued/ Sleepy Dring Daytime?: No Has Anyone Observed You Stop Breathing During Sleep?: No Result (for STOP score): Positive Hx Smoking: No Smoking Status: Never smoker Gastrointestinal Hx Gastrointestinal Disorders: No Hx Gastrointestinal Bleed: No Hx Ulcer: No Hx Hiatal Hernia: No Difficulty Chewing/Swallowing: No Special diet followed at home: No Hx Unplanned Weight Loss of 20#: No HX Unplanned Weight Gain of 20#: No Neurological Hx Seizures: No HX Syncope/Blackout Spells/Unconsciousness: Yes (PASSING OUT WITH USE OF TORADOL) Hx Transient Ischemic Attacks (TIA): No Hx Multiple Sclerosis: No Hx Parkinson's Disease: No Hx Head/Neck Injury: No Hx Headaches: Yes (MIGRAINE HX) Hx Back Injury/Pain: No (.) Recent Onset of Speech Difficulty: No Restless Legs: Yes Does patient have nerve stimulator: No Blood Disorder Hx Leukemia: No Bleeding Tendencies: No Hx Deep Vein Thrombosis: No Hx High Cholesterol: No Blood Transmitted Disease: No Hx Hepatitis: No Hx Cirrhosis: No Hx Anemia: Yes (JUST DURING ) Hx Blood Disorders: No Reproduction : No Is Patient Lactating: No Hx Hysterectomy: No Hx Tubal Ligation: Yes Are You Post Menopause: No Genitourinary Hx Renal Disease: Yes (HX STONES) Hx Dialysis: No Musculoskeletal Hx Arthritis: No Hx Rheumatoid Arthritis: No Hx Gout: No Recent Onset of an Orthopedic Problem: No Endocrine Hx Diabetes: No Thyroid Disease: No Hx Steroid Therapy: No (.) Psycho/Social Hx Substance Use: No Hx Alcohol Use: Yes (occ) Hx Anxiety: Yes (ON MED) Hx Depression: Yes (ON MED) Mental Illness: No Hx Dementia: No Miscellaneous Hx Cancer: No Recent Exposure to Contagious Disease: No Hx of C-Diff: No Any Loose Teeth: No Allergies bee venom protein (honey bee) Allergy (Verified 05/09/24 07:46) Swelling ketorolac (From Toradol) Allergy (Verified 05/09/24 07:46) PASSING OUT adhesive tape Adverse Reaction (Verified 05/09/24 07:46) Rash PREFERS PAPER TAPE Discharge Is Pt Admitted From a Correction, or a Long Term: No After D/C, Where Do you Plan to Go: Return Home Vital Signs Vital Signs Vital Signs: 05/09/24 07:49 05/09/24 07:49 Temperature 96.7 F L Temperature Source Temporal Pulse Rate 81 Respiratory Rate 20 H Respiratory Pattern Normal Blood Pressure 138/94 H Blood Pressure Mean 108 Blood Pressure Source Monitor Blood Pressure Position Semi-Fowlers Blood Pressure Location Left Arm Pulse Ox 98 Oxygen Delivery Method Room Air Weight Weight: 229 lb 4.492 oz Body Mass Index (BMI) 38.1 Physical Exam Const alert, oriented x3 and no apparent distress General Appearance: cooperative Resp normal respiratory effort GI GI Narrative: Obese, no scars, no visible herniation, nondistended, soft, mild tenderness to palpation of the left lower quadrant Assessment & Plan Assessment/Plan (1) Encounter for screening for malignant neoplasm of colon: PLAN: The patient is a 43-year-old male who presents for her for screening colonoscopy. She appears to be largely at average risk for colorectal cancer and reports only a family history of polyps in her mother. She does convey a history of mild constipation and a history of pain to the left lower quadrant that may be suggestive of mild diverticular disease. I suggested that we would look carefully for any evidence of diverticulosis at today's exam. Additionally I have confirmed that while patient has a history of DVT requiring anticoagulation she has not been on any anticoagulation for approximately the last 4 years. An overview of the procedure as well as post procedure reporting expectations was provided. Patient denies any further questions. Proceed to endoscopy suite for planned screening colonoscopy. Surgery Risks - Colonoscopy Risks Include but are not Limited To: Risks include but are not limited to: Bleeding, perforation requiring further surgery, inability to complete colonoscopy requiring barium enema.
--- NOTE | 2024-05-09 09:41 | PCM.POST.ANE ---
Anesthesia: Postop Eval I Current Vital Signs Temperature: 97 F Pulse Rate: 76 Blood Pressure: 114/101 Respiratory Rate: 18 Pulse Ox: 100 Oxygen Delivery Method: Nasal Cannula Oxygen Flow Rate (L/min): 3 Assessment Airway patent: Yes Spontaneous unlabored respirations: Yes Mental status: Asleep nausea: No Vomiting: No Anesthesia Complication: No Fluid Hydration Crystalloid volume administer (ml): 800 Total IV fluid infused: 800 Progress Note Anesthesia document: Postop Eval 1 completed: Yes
--- NOTE | 2024-05-09 09:43 | OP.CCLET_ITS ---
05/09/2024 Nadege Perez [address] [place] [address] Re : Colonoscopy procedure for Jesenia Wuiser Dear Dr. Perez This procedure was performed on May. My impressions and recommendations are as follows: Impressions : - Tortuous colon. - One 5 mm polyp in the transverse colon. Biopsied. - The examination was otherwise normal on direct and retroflexion views. Recommendations : - Discharge patient to home (via wheelchair). - Resume previous diet today. - No aspirin, ibuprofen, naproxen, or other non-steroidal anti-inflammatory drugs for 2 days after biopsy. - Await pathology results. - Repeat colonoscopy date to be determined after pending pathology results are reviewed for surveillance based on pathology results. - Telephone my office for pathology results in 1 week. My findings are described in the full procedure note, which is enclosed. If I can be of further assistance, please feel free to contact me at Doctor phone number(s): , Work: . Sincerely, Sly Cruz MD 05/09/2024 9:42:44 AM This report has been signed electronically.
--- NOTE | 2024-05-09 09:43 | OP.COLON_ITS ---
Patient Name: Jesenia Byrnes Procedure Date: 05/09/2024 8:16 AM Date of : 1980 Age: 43 Procedure: Colonoscopy Indications: Colon cancer screening in patient at increased risk: Family history of 1st-degree relative with colon polyps Providers: Sly Cruz MD Referring MD: Nadege Perez Medicines: See the Anesthesia note for documentation of the administered medications Patient Profile: Last Colonoscopy: none. The patient's first colonoscopy is today. Complications: No immediate complications. Estimated blood loss: Minimal. Procedure: Pre-Anesthesia Assessment: - The heart rate, respiratory rate, oxygen saturations, blood pressure, adequacy of pulmonary ventilation, and response to care were monitored throughout the procedure. After I obtained informed consent, the scope was passed under direct vision. Throughout the procedure, the patient's blood pressure, pulse, and oxygen saturations were monitored continuously. The Colonoscope was introduced through the anus and advanced to the cecum, identified by the appendiceal orifice, ileocecal valve and palpation. The colonoscopy was somewhat difficult due to a tortuous colon. Successful completion of the procedure was aided by withdrawing and reinserting the scope, straightening and shortening the scope to obtain bowel loop reduction and using scope torsion. The patient tolerated the procedure well. The quality of the bowel preparation was adequate to identify polyps. Scope In: 8:45:17 AM Scope Withdrawal Time 0 hours 25 minutes 16 seconds Scope Out: 9:31:19 AM Total Procedure Duration Time 0 hours 46 minutes 2 seconds Findings: The perianal and digital rectal examinations were normal. The descending colon, transverse colon and ascending colon were moderately tortuous. Advancing the scope required changing the patient to a supine position. A 5 mm polyp was found in the transverse colon. The polyp was semi-sessile. Biopsies were taken with a cold forceps for histology. Estimated blood loss was minimal. The exam was otherwise without abnormality on direct and retroflexion views. Impression: - Tortuous colon. - One 5 mm polyp in the transverse colon. Biopsied. - The examination was otherwise normal on direct and retroflexion views. Recommendation: - Discharge patient to home (via wheelchair). - Resume previous diet today. - No aspirin, ibuprofen, naproxen, or other non-steroidal anti-inflammatory drugs for 2 days after biopsy. - Await pathology results. - Repeat colonoscopy date to be determined after pending pathology results are reviewed for surveillance based on pathology results. - Telephone my office for pathology results in 1 week. Procedure Code(s): --- Professional --- 38320, Colonoscopy, flexible; with biopsy, single or multiple Diagnosis Code(s): --- Professional --- Z83.71, Family history of colonic polyps D12.3, Benign neoplasm of transverse colon (hepatic flexure or splenic flexure) Q43.8, Other specified congenital malformations of intestine CPT copyright 2021 [employer]. All rights reserved. The codes documented in this report are preliminary and upon observatory director review may be revised to meet current compliance requirements. Sly Cruz MD 05/09/2024 9:42:44 AM This report has been signed electronically. Number of Addenda: 0 Note Initiated On: 05/09/2024 8:16 AM
--- NOTE | 2024-05-09 09:43 | PCM.POSTANE2 ---
Anesthesia Postop Eval I Sum Postop Eval Completion status Anesthesia document: Postop Eval 1 completed: Yes Anesthesia Postop Eval I Summary Anesthesia Postop Eval I Summary: Anesthesia Postop Eval I: Assessment Summary Airway patent Yes 05/09/24 09:42 [email or web address] Spontaneous unlabored Yes 05/09/24 09:42 [email or web address] respirations Mental status Asleep 05/09/24 09:42 [email or web address] nausea No 05/09/24 09:42 [email or web address] Vomiting No 05/09/24 09:42 [email or web address] Anesthesia Postop Eval I: Fluid Summary Crystalloid volume administer 800 05/09/24 09:42 [email or web address] (ml) Colloids volume administered ( ml) Blood Product volume administered (ml) Total IV fluid infused 800 05/09/24 09:42 [email or web address] Anesthesia Postop Eval I: Summary Notes Anesthesia Complication No 05/09/24 09:42 [email or web address] Anesthesia Complication Comment: Post-operative progress note Anesthesia: Postop Eval II Evaluation Mental status: Awake Pain Level: 0 nausea: No Vomiting: No
== END 2024-05-09 10:41 | disposition home or self-care (01) ==
LOC: EN 07:30 → AC 07:32
PROVIDERS: PCP Family Medicine; Referring Provider Family Medicine; Visit Provider Surgery
PROC: 0DJD8ZZ Inspection of Lower Intestinal Tract, Via Natural or Artificial Opening Endoscopic (ICD-10-PCS; CPT 45378; principal; 2024-05-09 08:25)
DX: Z12.11 Encounter for screening for malignant neoplasm of colon (principal); K63.5 Polyp of colon; I10 Essential (primary) hypertension; F41.8 Other specified anxiety disorders; Z83.719 Family history of colon polyps, unspecified; Z79.899 Other long term (current) drug therapy; Z96.659 Presence of unspecified artificial knee joint; Q43.8 Other specified congenital malformations of intestine
CPT/HCPCS: 45380; 88305; J7120; J2405

== ENCOUNTER → 2025-01-06 | Outpatient (CLI) | payer OTHER, SELFPAY ==
[2025-01-06 13:11] LABS: Absolute Lymphocyte Count 3.09 X10^3/uL (0.83-4.51); Basophil# 0.06 X10^3/uL; Basophil% 0.6 % (0-1); Eosinophil# 0.36 X10^3/uL; Eosinophils% 3.9 % (0-5); Hematocrit 40.5 % (37-47); Hemoglobin 13.4 g/dL (12.0-15.0); Lymphocyte # 3.09 X10^3/ul (0.83-4.51); Lymphocyte % 33.3 % (19-41); Mean Corp Hgb Conc 33.1 g/dL (32-36); Mean Corpuscular Volume 93.8 fL (81-99); Mean Platelet Vol. 9.9 fl (6.2-12.0); Monocyte# 0.73 X10^3/uL; Monocyte% 7.9 % (0-10); NRBC Flagged by Analyzer 0 % (0-5); Neutrophil # 5.01 X10^3/uL (2.7-7.7); Platelet Count 313 K/mm3 (150-450); RBC Distribution Width CV 13.2 % (11.6-14.6); RBC Distribution Width SD 45.2 fl (35.1-43.9); Red Blood Count 4.32 M/mm3 (4.2-5.4); White Blood Count 9.3 K/mm3 (4.4-11.0)
[2025-01-06 13:47] LABS: ALB/GLOB Ratio 1.3 RATIO (0.9-2.4); AST(SGOT) 20 U/L (<=31); Alanine Aminotransfer ALT/SGPT 22 U/L (<=34); Albumin, Serum 4.3 g/dL (3.5-5.0); Alkaline Phosphatase 101 U/L (35-104); Anion Gap 13 (5-15); BUN 10 mg/dL (4-19); BUN/Creat Ratio 13.7 RATIO (10-20); Calcium,Total 9.8 mg/dL (7.6-11.0); Carbon Dioxide 25.3 mmol/L (21.0-32.0); Chloride 100 mmol/L (98-108); Cholesterol 231 mg/dL (<=200); Creatinine, Serum 0.74 mg/dL (0.70-1.20); EST Glomerular Filtration Rate 100 (>60); Estradiol 67.4 pg/mL; Globulin 3.2 g/dL (2.2-4.2); Glucose 89 mg/dL (70-99); High Density Lipoprotein 54 mg/dL; Low Density Lipoprotein Calc. 155 mg/dL; Potassium 3.7 mmol/L (3.3-5.1); Protein, Total 7.5 g/dL (5.9-8.4); Sodium Level 138 mmol/L (133-145); Total Bilirubin 0.41 mg/dL (0.00-1.30); Triglycerides 108 mg/dL; Very Low Density Lipoprotein 22 mg/dL (5-40); cholesterol:hdl ratio screen 4.25
[2025-01-07 08:09] LABS: PROGESTERONE 3.7 ng/mL (.)
== END | disposition home or self-care (01) ==
LOC: BFHLAB 09:27
PROVIDERS: PCP Family Medicine; Visit Provider Family Medicine
DX: I10 Essential (primary) hypertension (principal); Z51.81 Encounter for therapeutic drug level monitoring; N93.8 Other specified abnormal uterine and vaginal bleeding; R53.83 Other fatigue; E78.5 Hyperlipidemia, unspecified
CPT/HCPCS: 36415; 80053; 80061; 82670; 84144; 84402; 84403; 84439; 84443; 85025

== ENCOUNTER → 2025-04-10 | Outpatient (CLI) | payer OTHER, SELFPAY ==
--- OUTSIDE RECORDS SUMMARY | 2025-04-10 11:12 | XMS RPT_ITS | CCD ---
Author Organization [facility] Care Team Providers Care Mangle Feeder Name Role Phone Maya Schuster N Unavailable Hansel Schusterssica N Unavailable Mariely Maya N Unavailable Jared Tena Primary Care Provider Dr. Nadege Perez Primary Care Provider [phone] Dr. James Viramontes Attending Provider Nadege Perez DO Primary Care Provider [phone] SELF Referring Unavailable NADEGE PEREZ A Primary Care Unavailable RODRÍGUEZ LUIS Attending Unavailable Dr. Nadege Perez DO Primary Care Provider Dr. Nadege Perez DO Attending Provider [phone] Nadege Perez Primary Care Unavailable Matthew Cruz Attending Unavailable Matthew Cruz Consulting Unavailable Nadege Perez Referring Unavailable Matthew Cruz Attending Unavailable Nadege Perez Referring Unavailable Malys, Nadege Primary Care Unavailable Jeffersonys, Nadege Primary Care Unavailable JeffersonysBridgeta Attending Unavailable Letty Ricardo Attending Unavailable Ana, Nadege Primary Care Unavailable Allergies Allergy Classification Reported Allergen(s) Allergy Type Date of Onset Reaction(s) Facility (3 sources) ketorolac drug allergy [facility] Work Phone: (5 sources) Ketorolac; Translations: [KETOROLAC TROMETHAMINE] Drug Allergy 7 Mental Status Change [facility] Work Phone: (6 sources) Ketorolac Drug Allergy 0 PASSING OUT [facility] (6 sources) bee venom protein (honey bee) Allergy to substance 2 Swelling [facility] (2 sources) Adhesive Tape; Translations: [adhesive tape] Propensity to adverse reactions 4 Rash [facility] Comment on above: PREFERS PAPER TAPE (1 source) Ketorolac Drug Allergy 4 [facility] Repository (1 source) bee venom protein (honey bee) Drug allergy (disorder) 4 [facility] Rep[facility] Medications Current Medications Medication Drug Class(es) Dates Sig (Normalized) Sig (Original) Albuterol (6 sources) beta2-Adrenergic Agonist Start: 2016 Albuterol Sulfate 1 INHALER inhaler Active 1 - 2 NMA INHALATION EVERY 6 HOURS NEEDED as needed for Asthma 2016 12:00am Start: 2016 take 1 puff(s) by in halation every six hours as needed Albuterol Sulfate Active 1 - 2 PUFF INHALATION EVERY 6 HOURS NEEDED June 21, 2016 11:00pm 12 hr buPROPion hydrochloride 150 mg extended release oral tablet (19 sources) Aminoketone Start: 2016 take 1 tablet by mouth once daily Bupropion Hcl 150 MG tablet sustained-release 12 hr Active 300 mg PO DAILY 2016 12:00am Start: 05-05-2016 take 1 tablet by chuy th twice daily BUPROPION HCL ER (SR) 150 MG [id number] One tablet by mouth twice daily BUPROPION HCL [id number] Jamari Charles DO Start: 03-05-2013 WELLBUTRIN 75 MG TABS daily BUPROPION HCL [id number] Maricel Mercado Start: 03-05-2013 End: 06-05-2015 take 1 tablet by mouth twice daily for depression WELLBUTRIN SR 200 MG [id number] One tablet by mouth twice daily for depression BUPROPION HCL [id number] Nadege Perez DO Start: 03-05-2013 take 1 tablet by chuy th twice daily for depression WELLBUTRIN SR 200 MG [id number] One tablet by mouth twice daily for depression BUPROPION HCL [id number] Nadege Perez DO take 1 tablet by chuy th once daily in the morning buPROPion XL (WELLBUTRIN XL) 300 mg 24 hr tablet Take 300 mg by mouth every morning. Active cetirizine hydrochloride 10 mg oral tablet (10 sources) Histamine-1 Receptor Antagonist Start: 10-02-1971 take 1 tablet by mouth once daily as needed Cetirizine 10 MG tablet Active 10 mg PO DAILY as needed for Allergies 2016 12:00am doxycycline hyclate 100 mg oral capsule (1 source) Tetracycline-class Drug Start: 06-07-2024 End: 06-17-2024 take 1 capsule by mouth twice daily doxycycline hyclate (VIBRAMYCIN) 100 mg capsule Indications: Cellulitis and abscess of right leg Take 1 capsule (100 mg) by mouth two times a day for 10 days. 20 capsule 06/07/2024 06/17/2024 Active fluticasone propionate 0.05 mg/actuat metered dose nasal spray (9 sources) Corticosteroid Start: 09-20-2018 Fluticasone Propionate 1 SPRAY spray,suspension Active 1 NMA NASAL DAILY as needed for Allergies September 20, 2018 1:00am Start: 09-20-2018 Fluticasone Pr opionate Active 1 SPRAY NASAL DAILY September 20, 2018 12:00am Start: 12-26-2014 take 2 spray(s) nasa l route once daily FLUTICASONE PROPIONATE 50 MCG/ACT SUSP 2 sprays each nostril once daily FLUTICASONE PROPIONATE [id number] Nadege Perez DO hydroCHLOROthiazide 25 mg oral tablet (13 sources) Thiazide Diuretic Start: 07-09-2007 take 1 tablet by mouth once daily Hydrochlorothiazide 25 MG tablet Active 25 mg PO DAILY 2016 12:00am Comment on above: Take one(1) tablet d aily. LORazepam 0.5 mg oral tablet (9 sources) Benzodiazepine Start: 2016 take 1 tablet by mouth once daily as needed for anxiety Lorazepam 0.5 MG tablet Active 0.5 mg PO DAILY NEEDED as needed for Anxiety 2016 12:00am Start: 02-16-2015 take 1 tablet by chuy th every six hours as needed for anxiety LORAZEPAM 0.5 MG TABS 1 po every 6 hours as needed for anxiety LORAZEPAM [id number] Nadege Perez DO meloxicam 15 mg oral tablet (7 sources) Nonsteroidal Anti-inflammatory Drug Start: 02-18-2021 End: 05-06-2024 take 1 tablet by mouth once daily as needed for pain Meloxicam 15 mg tablet Active 15 mg PO DAILY NEEDED as needed for pain May 06, 2024 12:00am take as directed, stop all other nsaids metoprolol tartrate 25 mg oral tablet (19 sources) beta-Adrenergic Chapo Start: 2016 take 1 tablet by mouth once daily Metoprolol Tartrate 25 MG tablet Active 25 mg PO DAILY 2016 12:00am Start: 07-09-2007 End: 05-05-2016 take 1 tablet by mouth once daily metoprolol succinate XL (TOPROL XL) 25 mg ORAL Tb24 Take one(1) tablet daily. 0 07/09/2007 Active Comment on above: Take one(1) tablet d aily. Multivitamin preparation (1 source) multivitamin ( TAMIN DAILY ORAL) Take by mouth once daily. Vitamin D Active naproxen 500 mg oral tablet (2 sources) Nonsteroidal Anti-inflammatory Drug Start: 11-14-19 take 1 tablet by mouth twice daily as needed for pain Naproxen (Naprosyn) 500 mg tablet Active 500 mg PO TWICE A DAY as needed for pain November 14, 2023 1:00am traMADol hydrochloride 50 mg oral tablet (1 source) Opioid Agonist Start: 06-07-20 End: 06-10-20 take 1 tablet by mouth twice daily as needed for pain traMADol (ULTRAM) 50 mg tablet Indications: Cellulitis and abscess of right leg Take 1 tablet by mouth two times a day as needed for pain for up to 3 days. 6 tablet 06/07/2024 06/10/2024 Active vitamin B12 (6 sources) Vitamin B12 Start: 06-23-20 Cyanocobalamin (Vitamin B-12) 500 MCG tablet Active 300 ug PO DAILY June 23, 2020 12:00am Start: 06-23-2020 take 300 ug by mouth once daily Cyanocobalamin (Vitamin B-12) Active 300 MCG PO DAILY 2020 11:00pm Completed/Discontinued Medications Medication Drug Class(es) Dates Sig (Normalized) Sig (Original) acetaminophen 325 mg / HYDROcodone bitartrate 5 mg oral tablet (12 sources) Opioid Agonist Start: 07-01-2020 End: 07-06-2020 take 1-2 tablets by mouth every six hours as needed for pain Hydrocodone-Acetami nophen 1 TABLET tablet Discontinued 1 - 2 {tbl} PO EVERY 6 HOURS NEEDED as needed for Pain 40 5 July 01, 2020 July 05, 2020 12:00am July 06, 2020 12:02am stop all other narcotics and tylenol products Start: 07-01-2020 End: 07-06-2020 take 1-2 tablets by mouth every six hours as needed Hydrocodone-Acetaminophen Discontinued 1 - 2 TABLET PO EVERY 6 HOURS NEEDED 40 July 01, 2020 July 05, 2020 11:02pm stop all other narcotics and tylenol products Start: 05-27-2020 End: 05-30-2020 Hydrocodone-Acetaminophen 1 TABLET tablet Discontinued 1 {tbl} PO EVERY 6 HOURS NEEDED as needed for Pain 12 May 27, 2020 May 29, 2020 12:00am May 30, 2020 12:03am Start: 05-27-2020 End: 05-30-2020 take 1 tablet by mouth every six hours as needed Hydrocodone-Acetaminophen Discontinued 1 TABLET PO EVERY 6 HOURS NEEDED 12 3 May 27, 2020 May 29, 2020 11:03pm acetaminophen 325 mg / oxyCODONE hydrochloride 5 mg oral tablet (6 sources) Opioid Agonist Start: 09-26-2018 End: 09-28-2018 Oxycodone-Acetaminophen 1 TABLET tablet Discontinued 1 - 2 {tbl} PO EVERY 6 HOURS NEEDED as needed for Moderate Pain 5 2 September 26, 2018 2:35pm September 27, 2018 1:00am September 28, 2018 1:08am Start: 09-26-2018 End: 09-28-2018 take 1 tablet by mouth every six hours as needed Oxycodone-Acetaminophen Discontinued 1 - 2 TABLET PO EVERY 6 HOURS NEEDED 5 2 September 26, 2018 1:35pm September 28, 2018 12:08am apixaban 5 mg oral tablet (6 sources) Factor Xa Inhibitor Start: 07-27-2020 End: 11-10-2020 take 2 tablets by mouth twice daily, then take 1 tablet by mouth twice daily Apixaban 5 MG tablet Discontinued 5 mg PO TWICE A DAY July 27, 2020 12:00am November 10, 2020 2:01pm 10 mg twice a day for the first week. Then 5 mg twice a day. Start: 07-27-2020 End: 11-10-2020 take 10 mg by mouth twice daily, then take 5 mg by mouth twice daily Apixaban Discontinued 5 MG PO TWICE A DAY July 26, 2020 11:00pm November 10, 2020 1:01pm 10 mg twice a day for the first week. Then 5 mg twice a day. azithromycin 250 mg oral tablet (6 sources) Macrolide Antimicrobial Start: 12-26-2014 End: 02-16-2015 take 2 tablets by mouth once, then take 1 tablet by mouth once daily, then take 2-5 tablets by mouth AZITHROMYCIN 250 MG TABS 2 po on day 1 then 1 po daily on days 2-5 AZITHROMYCIN [id number] Nadege Perez DO CALCIUM-MAGNESIUM TABS (3 sources) Start: 03-05-2013 take 1 tablet by mouth once daily CALCIUM MAGNESIUM 750 TABS One tablet by mouth daily CALCIUM-MAGNESIUM TABS [id number] Nadege Ireland clindamycin 300 mg oral capsule (3 sources) Lincosamide Antibacterial Start: 04-01-2016 End: 04-11-2016 take 1 capsule by mouth every six hours CLINDAMYCIN HCL 300 MG CAPS One capsule by mouth every 6 hours CLINDAMYCIN HCL [id number] Jamari Charles DO dicloxacillin 500 mg oral capsule (3 sources) Penicillin-class Antibacterial Start: 04-01-2016 End: 04-11-2016 take 1 capsule by mouth four times daily DICLOXACILLIN SODIUM 500 MG CAPS One capsule by mouth four times daily DICLOXACILLIN SODIUM [id number] Jamari Charles DO dicyclomine hydrochloride 10 mg oral capsule (2 sources) Anticholinergic Start: 11-14-2023 End: 05-06-2024 take 2 capsules by mouth every six hours as needed for pain Dicyclomine 10 mg capsule Discontinued 20 mg PO EVERY 6 HOURS NEEDED as needed for abdominal pain November 14, 2023 7:10am May 06, 2024 2:30pm Start: 11-14-2023 take 20 mg by mouth every six hours as needed Dicyclomine Active 20 MG PO EVERY 6 HOURS NEEDED November 14, 2023 6:10am escitalopram 5 mg oral tablet (6 sources) Serotonin Reuptake Inhibitor Start: 05-27-2020 End: 05-06-2024 take 1 tablet by mouth once daily Escitalopram Oxalate 5 MG tablet Discontinued 5 mg PO DAILY May 27, 2020 12:00am May 06, 2024 2:31pm ondansetron 4 mg disintegrating oral tablet (2 sources) Serotonin-3 Receptor Antagonist Start: 11-14-2023 End: 05-06-2024 take 2 tablets by mouth every eight hours as needed for nausea Ondansetron 4 mg tablet,disintegrat ing Discontinued 8 mg PO EVERY 8 HOURS NEEDED as needed for Nausea November 14, 2023 1:00am May 06, 2024 2:31pm Start: 11-14-2023 take 8 mg by mouth e very eight hours as needed Ondansetron Active 8 MG PO EVERY 8 HOURS NEEDED November 14, 2023 12:00am PROBIOTIC PRODUCT (3 sources) Start: 03-05-2013 take 1 tablet by mouth once daily PROBIOTIC TBEC One tablet by mouth daily PROBIOTIC PRODUCT [id number] Nadege Ireland sulfamethoxazole 800 mg / trimethoprim 160 mg oral tablet (6 sources) Dihydrofolate Reductase Inhibitor Antibacterial, Sulfonamide Antimicrobial Start: 06-05-2015 End: 11-02-2015 take 1 tablet by mouth twice daily SULFAMETHOXAZOLE-TR IMETHOPRIM 800-160 MG TABS 1 po Twice daily x 10 days SULFAMETHOXAZOLE-TR IMETHOPRIM [id number] Nadege Perez DO CHOLECALCIFEROL (3 sources) Start: 03-05-2013 take 2 tablets by mouth once daily VITAMIN D 1000 UNIT TABS Two tablets by mouth daily CHOLECALCIFEROL [id number] Nadege Ireland Problems Active Problems Problem Classification Problem Date Documented Da te Episodic/Chronic Abdominal pain (2 sources) Acute abdominal pain; Translations: [Left lower quadrant pain] 11-14-2023 Episodic Anxiety disorders (3 sources) Generalized anxiety disorder; Translations: [Generalized anxiety disorder] Onset: 02-16-2015 02-16-2015 Chronic Essential hypertension (1 source) Essential (primary) hypertension; Translations: [Essential (primary) hypertension] Onset: 01-09-2025 Chronic Fracture of lower limb (5 sources) Fracture of foot ; Translations: [Stress fracture of tibia] Onset: 07-31-2014 07-31-2014 Episodic Joint disorders and dislocations; trauma-related (1 source) Acute meniscal tear, medial; Translations: [Complex tear of medial meniscus, current injury, left knee, subsequent encounter] Episodic Lymphadenitis (2 sources) Acute mesenteric adenitis; Translations: [Nonspecific mesenteric lymphadenitis] 11-14-2023 Episodic Mood disorders (3 sources) Depressive disorder; Translations: [Major depressive disorder, single episode, unspecified] Onset: 10-31-2014 10-31-2014 Chronic Nonmalignant breast conditions (4 sources) Fibrocystic disease of breast; Translations: [Diffuse cystic mastopathy of unspecified breast] Onset: 07-09-2007 07-09-2007 Chronic Osteoarthritis (7 sources) Arthritis of knee; Translations: [Unilateral primary osteoarthritis, unspecified knee] Chronic Other congenital anomalies (2 sources) Pes cavus; Translations: [Congenital pes cavus] Onset: 01-31-2017 01-31-2017 Chronic Other nutritional; endocrine; and metabolic disorders (3 sources) Body mass index 30+ - obesity; Translations: [Obesity, unspecified] Onset: 10-31-2014 10-31-2014 Chronic Skin and subcutaneous tissue infections (9 sources) Cellulitis of lower limb; Translations: [Abscess of skin AND/OR subcutaneous tissue] Onset: 06-05-2015 Resolved: 04-08-2016 07-05-2015 Episodic Unclassified (3 sources) Adult health examination ; [...] [Plantar fasciitis] Onset: 07-31-2014 07-31-2014 Episodic Other screening for suspected conditions (not mental disorders or infectious disease) (3 sources) Patient encounter status; Translations: [Encounter for screening for malignant neoplasm of colon] Onset: 05-24-2024 04-12-2024 Episodic Other upper respiratory infections (3 sources) Acute sinusitis; Translations: [Acute sinusitis, unspecified] Onset: 12-26-2014 12-29-2014 Episodic Sprains and strains (6 sources) Sprain [...] Results Test Name Value Interpretation Reference Range Facility Testosterone, Total / Freeon 01-17-2025 TESTOSTER,FREE 0.45 ng/dL Normal 0.10-0.85 [facility] Comment on above: Order Comment: N Performed By: #### L 801.2600, L3100.5310, L100.0100, L501.9520, L3300.1750, L506.0400, L500.4100, L500.4050 ####[facility] [address] [place], [place], [id number] TESTOSTER,TOTAL 17 ng/dL Normal 4-50 [facility] Comment on above: Order Comment: N Performed By: #### L 801.2600, L3100.5310, L100.0100, L501.9520, L3300.1750, L506.0400, L500.4100, L500.4050 ####[facility] [address] [place], [place], [id number] TESTOSTERONE,%F 2.63 Normal 0.50-2.80 [facility] Comment on above: Order Comment: N Result Comment: Perf ormed at: [address] [id number] Fan Engine Engineer: Brian Franklin PhD, Phone: [phone] Performed at: [address] [id number] Fan Engine Engineer: Zulay Santacruz MD, Phone: [phone] Performed By: #### L 801.2600, L3100.5310, L100.0100, L501.9520, L3300.1750, L506.0400, L500.4100, L500.4050 ####[facility] [address] [place], [address] PROGESTERONE 4317on 01-08-20 25 PROGESTERONE 3.7 ng/mL Normal . [facility] Comment on above: Order Comment: N Result Comment: Foll icular phase 0.1 - 0.9 Luteal phase 1.8 - 23.9 Ovulation phase 0.1 - 12.0 First trimester 11.0 - 44.3 Second trimester 25.4 - 83.3 Third trimester 58.7 - 214.0 Postmenopausal 0.0 - 0.1 Performed at: [id number] [place], [place] [id number] Fan Engine Engineer: Brian Franklin PhD, Phone: [phone] Performed By: #### L 801.2600, L3100.5310, L100.0100, L501.9520, L3300.1750, L506.0400, L500.4100, L500.4050 ####[facility] [address] [place], [place], [phone] Absolute neutrophil countOrd ered By: Nadege Perez on 01-06-2025 Neutrophils (Bld) [#/Vol] 5.0 10*3/uL 2.0-7.7 [facility] Anion gap in Serum or Plasma Ordered By: Nadege Perez on 01-06-2025 Anion gap [Moles/Vol] 13 mmol/L 5-15 [facility] BUN/creatinine ratioOrdered By: Nadege Perez on 01-06-2025 Urea nitrogen/Creatinine [Mass ratio] 13.7 mg/mg 10-20 [facility] Basophil percentageOrdered B y: Nadege Perez on 01-06-2025 Basophils/100 WBC (Bld) 0.6 % 0-1 [facility] Bilirubin, totalOrdered By: Nadege Perez on 01-06-2025 Bilirubin [Mass/Vol] 0.41 mg/dL 0.00-1.30 [facility] CBC W/Diff, Automatedon - Absolute Lymph 3.09 X10 3/uL Normal 0.83-4.51 [facility] Comment on above: Performed By: #### L 801.2600, L3100.5310, L100.0100, L501.9520, L3300.1750, L506.0400, L500.4100, L500.4050 #### [facility] [address] [place], [address] Absolute Neut 5.0 X10 3/uL Normal 2.0-7.7 [facility] Comment on above: Performed By: #### L 801.2600, L3100.5310, L100.0100, L501.9520, L3300.1750, L506.0400, L500.4100, L500.4050 #### [facility] [address] [place], [place], [id number] (585) Basophils/100 WBC (Bld) 0.6 % Normal 0-1 [facility] Comment on above: Performed By: #### L 801.2600, L3100.5310, L100.0100, L501.9520, L3300.1750, L506.0400, L500.4100, L500.4050 #### [facility] [address] [place], [address] Eosinophils/100 WBC (Bld) 3.9 % Normal 0-5 [facility] Comment on above: Performed By: #### L 801.2600, L3100.5310, L100.0100, L501.9520, L3300.1750, L506.0400, L500.4100, L500.4050 #### [facility] [address] [place], [address] Erythrocyte distribution width (RBC) [Ratio] 13.2 % Normal 11.6-14.6 [facility] Comment on above: Performed By: #### L 801.2600, L3100.5310, L100.0100, L501.9520, L3300.1750, L506.0400, L500.4100, L500.4050 #### [facility] [address] [place], [address] Hematocrit (Bld) [Volume fraction] 40.5 % Normal 37-47 [facility] Comment on above: Performed By: #### L 801.2600, L3100.5310, L100.0100, L501.9520, L3300.1750, L506.0400, L500.4100, L500.4050 #### [facility] [address] [place], [address] Hemoglobin (Bld) [Mass/Vol] 13.4 g/dL Normal 12.0-15.0 [facility] Comment on above: Performed By: #### L 801.2600, L3100.5310, L100.0100, L501.9520, L3300.1750, L506.0400, L500.4100, L500.4050 #### [facility] [address] [place], [address] IG% 0.300 Normal 0.0-0.9 [facility] Comment on above: Result Comment: IG% - Immature Granulocytes (promyelocytes, myelocytes and metamyelocytes) > 1% indicates that a LEFT SHIFT is Present. Performed By: #### L 801.2600, L3100.5310, L100.0100, L501.9520, L3300.1750, L506.0400, L500.4100, L500.4050 #### [facility] [address] [place], [address] Lymphocytes/100 WBC (Bld) 33.3 % Normal 19-41 [facility] Comment on above: Performed By: #### L 801.2600, L3100.5310, L100.0100, L501.9520, L3300.1750, L506.0400, L500.4100, L500.4050 #### [facility] [address] [place], [address] MCH (RBC) [Entitic mass] 31.0 pg Normal 27.0-32.0 [facility] Comment on above: Performed By: #### L 801.2600, L3100.5310, L100.0100, L501.9520, L3300.1750, L506.0400, L500.4100, L500.4050 #### [facility] [address] [place], [address] MCHC (RBC) [Mass/Vol] 33.1 g/dL Normal 32-36 [facility] Comment on above: Performed By: #### L 801.2600, L3100.5310, L100.0100, L501.9520, L3300.1750, L506.0400, L500.4100, L500.4050 #### [facility] [address] [place], [address] MCV (RBC) [Entitic vol] 93.8 fL Normal 81-99 [facility] Comment on above: Performed By: #### L 801.2600, L3100.5310, L100.0100, L501.9520, L3300.1750, L506.0400, L500.4100, L500.4050 #### [facility] [address] [place], [address] Monocytes/100 WBC (Bld) 7.9 % Normal 0-10 [facility] Comment on above: Performed By: #### L 801.2600, L3100.5310, L100.0100, L501.9520, L3300.1750, L506.0400, L500.4100, L500.4050 #### [facility] [address] [place], [address] Neutrophils/100 WBC (Bld) 54.0 % Normal 47-70 [facility] Comment on above: Performed By: #### L 801.2600, L3100.5310, L100.0100, L501.9520, L3300.1750, L506.0400, L500.4100, L500.4050 #### [facility] [address] [place], [address] Nucleated RBC (Bld) [#/Vol] 0 10*3/uL Normal 0-5 [facility] Comment on above: Performed By: #### L 801.2600, L3100.5310, L100.0100, L501.9520, L3300.1750, L506.0400, L500.4100, L500.4050 #### [facility] [address] [place], [address] Platelet mean volume (Bld) [Entitic vol] 9.9 fL Normal 6.2-12.0 [facility] Comment on above: Performed By: #### L 801.2600, L3100.5310, L100.0100, L501.9520, L3300.1750, L506.0400, L500.4100, L500.4050 #### [facility] [address] [place], [address] Platelets (Bld) [#/Vol] 313 10*3/uL Normal 150-450 [facility] Comment on above: Performed By: #### L 801.2600, L3100.5310, L100.0100, L501.9520, L3300.1750, L506.0400, L500.4100, L500.4050 #### [facility] [address] [place], [address] RBC (Bld) [#/Vol] 4.32 10*6/uL Normal 4.2-5.4 [facility] Comment on above: Performed By: #### L 801.2600, L3100.5310, L100.0100, L501.9520, L3300.1750, L506.0400, L500.4100, L500.4050 #### [facility] [address] [place], [address] RDW SD 45.2 fl High 35.1-43.9 [facility] Comment on above: Performed By: #### L 801.2600, L3100.5310, L100.0100, L501.9520, L3300.1750, L506.0400, L500.4100, L500.4050 #### [facility] [address] [place], [address] WBC (Bld) [#/Vol] 9.3 10*3/uL Normal 4.4-11.0 [facility] Comment on above: Performed By: #### L 801.2600, L3100.5310, L100.0100, L501.9520, L3300.1750, L506.0400, L500.4100, L500.4050 #### [facility] [address] [place], [address] Calculated very low density lipoprotein (VLDL) cholesterol measurementOrdered By: Nadege Perez on 01-06-2025 VLDL Cholesterol 22 mg/dL 5-40 [facility] Carbon dioxide, total [Moles /volume] in Central venous bloodOrdered By: Nadege Perez on 01-06-2025 CO2 [Moles/Vol] 25.3 mmol/L 21.0-32.0 [facility] Chloride assayOrdered By: Senait Perez on 01-06-2025 Chloride [Moles/Vol] 100 mmol/L 98-108 [facility] Comprehensive Metabolic Prof ilon 01-06-2025 Albumin [Mass/Vol] 4.3 g/dL Normal 3.5-5.0 [facility] Comment on above: Performed By: #### L 801.2600, L3100.5310, L100.0100, L501.9520, L3300.1750, L506.0400, L500.4100, L500.4050 #### [facility] [address] [place], [address] Albumin/Globulin [Mass ratio] 1.3 {ratio} Normal 0.9-2.4 [facility] [facility] Comment on above: Performed By: #### L 801.2600, L3100.5310, L100.0100, L501.9520, L3300.1750, L506.0400, L500.4100, L500.4050 #### [facility] [address] [place], [address] ALK PHOS 101 U/L Normal 35-104 [facility] Comment on above: Performed By: #### L 801.2600, L3100.5310, L100.0100, L501.9520, L3300.1750, L506.0400, L500.4100, L500.4050 #### [facility] [address] [place], [address] ALT [Catalytic activity/Vol] 22 U/L Normal <=34 [facility] Comment on above: Performed By: #### L 801.2600, L3100.5310, L100.0100, L501.9520, L3300.1750, L506.0400, L500.4100, L500.4050 #### [facility] [address] [place], [address] AST [Catalytic activity/Vol] 20 U/L Normal <=31 [facility] Comment on above: Performed By: #### L 801.2600, L3100.5310, L100.0100, L501.9520, L3300.1750, L506.0400, L500.4100, L500.4050 #### [facility] [address] [place], [address] Bilirubin [Mass/Vol] 0.41 mg/dL Normal 0.00-1.30 [facility] Comment on above: Performed By: #### L 801.2600, L3100.5310, L100.0100, L501.9520, L3300.1750, L506.0400, L500.4100, L500.4050 #### [facility] [address] [place], [address] BUN/CRE 13.7 RATIO Normal 10-20 [facility] Comment on above: Performed By: #### L 801.2600, L3100.5310, L100.0100, L501.9520, L3300.1750, L506.0400, L500.4100, L500.4050 #### [facility] [address] [place], [address] Calcium [Mass/Vol] 9.8 mg/dL Normal 7.6-11.0 [facility] Comment on above: Performed By: #### L 801.2600, L3100.5310, L100.0100, L501.9520, L3300.1750, L506.0400, L500.4100, L500.4050 #### [facility] [address] [place], [address] Chloride [Moles/Vol] 100 mmol/L Normal 98-108 [facility] Comment on above: Performed By: #### L 801.2600, L3100.5310, L100.0100, L501.9520, L3300.1750, L506.0400, L500.4100, L500.4050 #### [facility] [address] [place], [address] CO2 [Moles/Vol] 25.3 mmol/L Normal 21.0-32.0 [facility] Comment on above: Performed By: #### L 801.2600, L3100.5310, L100.0100, L501.9520, L3300.1750, L506.0400, L500.4100, L500.4050 #### [facility] [address] [place], [place], [id number] (698) Creatinine [Mass/Vol] 0.74 mg/dL Normal 0.70-1.20 [facility] Comment on above: Performed By: #### L 801.2600, L3100.5310, L100.0100, L501.9520, L3300.1750, L506.0400, L500.4100, L500.4050 #### [facility] [address] [place], [address] GAP 13 Normal 5-15 [facility] Comment on above: Performed By: #### L 801.2600, L3100.5310, L100.0100, L501.9520, L3300.1750, L506.0400, L500.4100, L500.4050 #### [facility] [address] [place], [address] GFR/1.73 sq M.predicted among non-blacks MDRD (S/P/Bld) [Vol rate/Area] 100 mL/min/{1.73_m2} Normal >60 [facility] Comment on above: Result Comment: mL/m in/1.73m2 CKD-EPI Creatinine Equation (2020) Performed By: #### L 801.2600, L3100.5310, L100.0100, L501.9520, L3300.1750, L506.0400, L500.4100, L500.4050 #### [facility] [address] [place], [address] Globulin (S) [Mass/Vol] 3.2 g/dL Normal 2.2-4.2 [facility] Comment on above: Performed By: #### L 801.2600, L3100.5310, L100.0100, L501.9520, L3300.1750, L506.0400, L500.4100, L500.4050 #### [facility] [address] [place], [address] Glucose [Mass/Vol] 89 mg/dL Normal 70-99 [facility] Comment on above: Performed By: #### L 801.2600, L3100.5310, L100.0100, L501.9520, L3300.1750, L506.0400, L500.4100, L500.4050 #### [facility] [address] [place], [address] Potassium [Moles/Vol] 3.7 mmol/L Normal 3.3-5.1 [facility] Comment on above: Performed By: #### L 801.2600, L3100.5310, L100.0100, L501.9520, L3300.1750, L506.0400, L500.4100, L500.4050 #### [facility] [address] [place], [address] Sodium [Moles/Vol] 138 mmol/L Normal 133-145 [facility] Comment on above: Performed By: #### L 801.2600, L3100.5310, L100.0100, L501.9520, L3300.1750, L506.0400, L500.4100, L500.4050 #### [facility] [address] [place], [address] T PROT 7.5 g/dL Normal 5.9-8.4 [facility] Comment on above: Performed By: #### L 801.2600, L3100.5310, L100.0100, L501.9520, L3300.1750, L506.0400, L500.4100, L500.4050 #### [facility] [address] [place], [address] Urea nitrogen [Mass/Vol] 10 mg/dL Normal 4-19 [facility] Comment on above: Performed By: #### L 801.2600, L3100.5310, L100.0100, L501.9520, L3300.1750, L506.0400, L500.4100, L500.4050 #### [facility] [address] [place], [place], [phone] E2 post dose follitropin [Ma ss/Vol]Ordered By: Nadege Perez on 01-06-2025 Estradiol (E2) Level 67.4 pg/mL [facility] Comment on above: FEMALES ADULT FEMALE : Premenopausal: 15-350 pg/mL(E2 levels vary widely through the menstrual cycle) Postmenopausal: <10 pg/mL ARNIE STAGES MEAN AGE REFERENCE RANGES Stage I(>14 days and prepubertal) 7.1 years Undetectable-20 pg/mLL Stage II 10.5 years Undetectable-24 pg/mL Stage III 11.6 years Undetectable-60 pg/mL Stage IV 12.3 years 15-85 pg/mL Stage V 14.5 years 15-350 pg/mL Puberty onset (transition from Arnie stage I to Arnie stage II) occurs for girls at a median age of 10.5 (/- 2) years. There is evidence that it may occur up to 1 year earlier in obese girls and in girls.Progression through Arnie stages is variable. Arnie stage V (adult) should be reached by age 18. Eosinophil percentageOrdered By: Nadege Perez on 01-06-2025 Eosinophils/100 WBC (Bld) 3.9 % 0-5 [facility] Erythrocyte distribution wid th (RBC) [Ratio]Ordered By: Nadege Perez on 01-06-2025 Erythrocyte distribution width (RBC) [Entitic vol] 45.2 fL High 35.1-43.9 [facility] Erythrocyte distribution wid th ratioOrdered By: Nadege Perez on 01-06-2025 Erythrocyte distribution width (RBC) [Ratio] 13.2 % 11.6-14.6 [facility] Estradiolon 01-06-2025 ESTRADIOL 67.4 pg/mL Normal [facility] Comment on above: Result Comment: FEMA LES ADULT FEMALE: Premenopausal: 15-350 pg/mL(E2 levels vary widely through the menstrual cycle) Postmenopausal: <10 pg/mL ARNIE STAGES MEAN AGE REFERENCE RANGES Stage I(>14 days and prepubertal) 7.1 years Undetectable-20 pg/mLL Stage II 10.5 years Undetectable-24 pg/mL Stage III 11.6 years Undetectable-60 pg/mL Stage IV 12.3 years 15-85 pg/mL Stage V 14.5 years 15-350 pg/mL Puberty onset (transition from Arnie stage I to Arnie stage II) occurs for girls at a median age of 10.5 (/- 2) years. There is evidence that it may occur up to 1 year earlier in obese girls and in girls. Progression through Arnie stages is variable. Arnie stage V (adult) should be reached by age 18. Performed By: #### L 801.2600, L3100.5310, L100.0100, L501.9520, L3300.1750, L506.0400, L500.4100, L500.4050 ####[facility] [address] [place], [address] GFR/1.73 sq M.predicted camila g non-blacks MDRD (S/P/Bld) [Vol rate/Area]Ordered By: Nadege Perez on 01-06-2025 Estimated GFR (MDRD) Non-Af Amer 100 >60 [facility] Comment on above: mL/min/1.73m2 CKD-EP I Creatinine Equation (2020) Hematocrit Auto (Bld) [Volum e fraction]Ordered By: Nadege Perez on 01-06-2025 Hematocrit (Bld) [Volume fraction] 40.5 % 37-47 [facility] Hemoglobin measurementOrdere d By: Nadege Perez on 01-06-2025 Hemoglobin (Bld) [Mass/Vol] 13.4 g/dL 12.0-15.0 [facility] Immature granulocytes/100 WB C Auto (Bld)Ordered By: Nadege Perez on 01-06-2025 Immature granulocytes/100 WBC (Bld) 0.300 % 0.0-0.9 [facility] Comment on above: IG% - Immature Granu locytes (promyelocytes, myelocytes and metamyelocytes) > 1% indicates that a LEFT SHIFT is Present. LDL calc ser/plasOrdered By: Nadege Perez on 01-06-2025 LDL Cholesterol, Calculated 155 mg/dL [facility] Comment on above: Hibtjpqgti=769-103 m g/dL & Higher Gyhl=589 mg/dL or greater Laboratory - Chemistry and C hemistry - challengeOrdered By: Nadege Perez on 01-06-2025 AST [Catalytic activity/Vol] 20 U/L <32 [facility] Lipid Profileon 01-06-2025 CHOL:HDL 4.25 Normal [facility] Comment on above: Performed By: #### L 801.2600, L3100.5310, L100.0100, L501.9520, L3300.1750, L506.0400, L500.4100, L500.4050 #### [facility] [address] [place], [place], [id number] Cholesterol [Mass/Vol] 231 mg/dL High <=200 [facility] Comment on above: Result Comment: Chol esterol level, Desirable <200 mg/dL Borderline high cholesterol 200-239 mg/dL High cholesterol >=240 mg/dL Recommendations of the NCEP Adult Treatment Panel for the following risk-cutoff thresholds for the [place] population. Performed By: #### L 801.2600, L3100.5310, L100.0100, L501.9520, L3300.1750, L506.0400, L500.4100, L500.4050 #### [facility] [address] [place], [address] Cholesterol in HDL [Mass/Vol] 54 mg/dL Normal [facility] Comment on above: Result Comment: Jaylin onal Cholesterol Education Program (NCEP) guidelines: <40 mg/dL: Low HDL-cholesterol (major risk factor for CHD) >= 60 mg/dL: High HDL-cholesterol (negative risk factor for CHD) HDL-cholesterol is affected by a number of factors, e.g. smoking, exercise, hormones, sex and age. Performed By: #### L 801.2600, L3100.5310, L100.0100, L501.9520, L3300.1750, L506.0400, L500.4100, L500.4050 #### [facility] [address] [place], [address] Cholesterol in LDL [Mass/Vol] 155 mg/dL Normal [facility] Comment on above: Result Comment: Bord npkvfx=181-464 mg/dL Higher Dqvp=810 mg/dL or greater Performed By: #### L 801.2600, L3100.5310, L100.0100, L501.9520, L3300.1750, L506.0400, L500.4100, L500.4050 #### [facility] [address] [place], [address] Cholesterol in VLDL [Mass/Vol] 22 mg/dL Normal 5-40 [facility] Comment on above: Performed By: #### L 801.2600, L3100.5310, L100.0100, L501.9520, L3300.1750, L506.0400, L500.4100, L500.4050 #### [facility] [address] [place], [address] Triglyceride [Mass/Vol] 108 mg/dL Normal [facility] Comment on above: Result Comment: The drugs N-Acetylcysteine and Metamizole may falsely depress this assay. Normal range: <150 mg/dL Borderline High: 150-199 mg/dL High: 200-499 mg/dL Very High: >500 mg/dL Performed By: #### L 801.2600, L3100.5310, L100.0100, L501.9520, L3300.1750, L506.0400, L500.4100, L500.4050 #### [facility] [address] [place], [place], [id number] Lymphocytes Auto (Unsp spec) [#/Vol]Ordered By: Nadege Perez on 01-06-2025 Lymphocytes (Bld) [#/Vol] 3.09 10*3/uL 0.83-4.5 1 [facility] Lymphocytes/100 WBC Auto (Un sp spec)Ordered By: Nadege Perez on 01-06-2025 Lymphocytes/100 WBC (Bld) 33.3 % 19-41 [facility] MCV (mean corpuscular volume ) determinationOrdered By: Nadege Perez on 01-06-2025 MCV (RBC) [Entitic vol] 93.8 fL 81-99 [facility] Mean corpuscular hemoglobin (MCH) determinationOrdered By: Nadege Perez on 01-06-2025 MCH (RBC) [Entitic mass] 31.0 pg 27.0-32.0 [facility] Mean corpuscular hemoglobin concentration (MCHC) determinationOrdered By: Nadege Perez on 01-06-2025 MCHC (RBC) [Mass/Vol] 33.1 g/dL 32-36 [facility] Mean platelet volume determi nationOrdered By: Nadege Perez on 01-06-2025 Platelet mean volume (Bld) [Entitic vol] 9.9 fL 6.2-12.0 [facility] Monocyte percentageOrdered B y: Nadege Perez on 01-06-2025 Monocytes/100 WBC (Bld) 7.9 % 0-10 [facility] Neutrophil percentageOrdered By: Nadege Perez on 01-06-2025 Neutrophils/100 WBC (Bld) 54.0 % 47-70 [facility] Nucleated red blood cell per centageOrdered By: Nadege Perez on 01-06-2025 Nucleated RBC/100 WBC (Bld) [Ratio] 0 % 0-5 [facility] Platelet countOrdered By: Senait Perez on 01-06-2025 Platelets (Bld) [#/Vol] 313 10*3/uL 150-450 [facility] Potassium (Unsp spec) [Mass/ Vol]Ordered By: Nadege Perez on 01-06-2025 Potassium [Moles/Vol] 3.7 mmol/L 3.3-5.1 [facility] Quantitative serum progester one measurement by electrochemiluminescence immunoassay (Ordered By: Nadege Perez on 01-06-2025 Progesterone Level 3.7 ng/mL . [facility] Comment on above: Follicular phase 0.1 - 0.9 Luteal phase 1.8 - 23.9 Ovulation phase 0.1 - 12.0 First trimester 11.0 - 44.3 Second trimester 25.4 - 83.3 Third trimester 58.7 - 214.0 Postmenopausal 0.0 - 0.1Performed at: [facility] [facility] Director: Brian Franklin PhD, Phone: [phone] RBC Auto (Bld) [#/Vol]Ordere d By: Nadege Perez on 01-06-2025 RBC (Bld) [#/Vol] 4.32 10*6/uL 4.2-5.4 [facility] Screening total cholesterol/ high density lipoprotein (HDL) cholesterol ratioOrdered By: Nadege Perez on 01-06-2025 Cholesterol.total/Choleste rol in HDL [Mass ratio] 4.25 {ratio} [facility] Serum creatinine measurement (mass/volume)Ordered By: Nadege Perez on 01-06-2025 Creatinine [Mass/Vol] 0.74 mg/dL 0.70-1.20 [facility] Serum globulin measurementOr dered By: Nadege Perez on 01-06-2025 Globulin (S) [Mass/Vol] 3.2 g/dL 2.2-4.2 [facility] Serum glucose measurement (m ass/volume)Ordered By: Nadege Perez on 01-06-2025 Glucose [Mass/Vol] 89 mg/dL 70-99 [facility] Serum or plasma alanine العلي otransferase (ALT) measurementOrdered By: Nadege Perez on 01-06-2025 ALT [Catalytic activity/Vol] 22 U/L <35 [facility] Serum or plasma albumin kush urement (mass/volume)Ordered By: Nadege Perez on 01-06-2025 Albumin [Mass/Vol] 4.3 g/dL 3.5-5.0 [facility] Serum or plasma albumin/glob ulin mass ratioOrdered By: Nadege Perez on 01-06-2025 Albumin/Globulin [Mass ratio] 1.3 {ratio} 0.9-2.4 [facility] Serum or plasma alkaline dasha sphatase measurementOrdered By: Nadege Perez on 01-06-2025 ALP [Catalytic activity/Vol] 101 U/L 35-104 [facility] Serum or plasma calcium kush urement (mass/volume)Ordered By: Nadege Perez on 01-06-2025 Calcium [Mass/Vol] 9.8 mg/dL 7.6-11.0 [facility] Serum or plasma cholesterol in HDL measurement (mass/volume)Ordered By: Nadege Perez on 01-06-2025 Cholesterol in HDL [Mass/Vol] 54 mg/dL >40 [facility] Comment on above: National Cholesterol Education Program (NCEP) guidelines:<40 mg/dL: Low HDL-cholesterol (major risk factor for CHD)>= 60 mg/dL: High HDL-cholesterol (negative risk factor for CHD)HDL-cholesterol is affected by a number of factors, e.g. smoking, exercise, hormones, sex and age. Serum or plasma cholesterol measurement (mass/volume)Ordered By: Nadege Perez on 01-06-2025 Cholesterol [Mass/Vol] 231 mg/dL High <201 [facility] Comment on above: Cholesterol level, D esirable <200 mg/dLBorderline high cholesterol 200-239 mg/dLHigh cholesterol >=240 mg/dLRecommendations of the NCEP Adult Treatment Panel for the following risk-cutoff thresholds for the [place] population. Serum or plasma urea nitroge n measurement (mass/volume)Ordered By: Nadege Perez on 01-06-2025 Urea nitrogen [Mass/Vol] 10 mg/dL 4-19 [facility] Sodium levelOrdered By: Nadege Perez on 01-06-2025 Sodium [Moles/Vol] 138 mmol/L 133-145 [facility] T4 Free Directon 01-06-2025 T4 FREE DIRECT 1.10 ng/dL Normal 0.76-1.46 [facility] Comment on above: Order Comment: N Performed By: #### L 801.2600, L3100.5310, L100.0100, L501.9520, L3300.1750, L506.0400, L500.4100, L500.4050 #### [facility] [address] [place], [address] T4 freeOrdered By: Nadege Rojas s on 01-06-2025 Free T4 [Mass/Vol] 1.10 ng/dL 0.76-1.46 [facility] TSH DL <= 0.005 mIU/L QnOrde red By: Nadege Perez on 01-06-2025 Thyroid Stimulating Hormone (TSH) 1.380 uIU/mL 0.300-4.20 0 [facility] Thyroid Stim Hormone (TSH)on 01-06-2025 TSH 1.380 uIU/mL Normal 0.300-4.20 0 [facility] Comment on above: Performed By: #### L 801.2600, L3100.5310, L100.0100, L501.9520, L3300.1750, L506.0400, L500.4100, L500.4050 #### [facility] [address] [place], [address] Total proteinOrdered By: Bridget Perez on 01-06-2025 Protein [Mass/Vol] 7.5 g/dL 5.9-8.4 [facility] Triglycerides measurementOrd ered By: Nadege Perez on 01-06-2025 Triglyceride [Mass/Vol] 108 mg/dL <199 [facility] Comment on above: The drugs N-Acetylcy steine and Metamizole may falsely depress this assay. Normal range: <150 mg/dLBorderline High: 150-199 mg/dLHigh: 200-499 mg/dLVery High: >500 mg/dL White blood cell (WBC) count Ordered By: Nadege Perez on 01-06-2025 WBC (Bld) [#/Vol] 9.3 10*3/uL 4.4-11.0 [facility] CNOVon 06-07-2024 CNOV Office Visit ([facility] ) JESENIA BYRNES ([id number]) 1980 F Date Time Provider Department 06/07/24 9:45 AM [facility] During your visit today, we recorded the following information about you: Temperature Pulse Respiration Blood pressure 97 degrees 69/minute 18/minute 138/88 Weight 108 kg Forrest Milligan LPN 06/07/2024 10:30 AM Signed Patient declined depression screening at this time. ALEXA Farley Laurie M, PA-C 06/07/2024 10:18 AM Signed Doxycycline twice daily for 10 days. - drink a full glass of water with each dose - do not take with milk/dairy products - avoid sun exposure - it raises your risk for burn - if you take calcium or iron supplements, do not take them while you take this, or take them at a different time of day - stay upright for 30 minutes after taking this medicine Tramadol 1 tab every 12 hours for pain Warm compress or soaks Return in 48-72 hours if not improving. Abscess You were diagnosed with an abscess of the: Skin. An abscess is a sore that is infected and filled with pus. It is caused by an infection with bacteria. Sometimes a splinter or other object stuck in the skin can cause an infection that can become an abscess. The body traps the infection in a tight pocket to try to stop the infection from spreading to other areas. The usual treatment is to make a cut in the abscess so the pus can drain out. Most abscesses heal quickly with no need for antibiotics. Your doctor has determined that antibiotics ARE necessary to treat your abscess. Fill the prescription and take all medications as prescribed until they are all gone. The doctor suspects that your infection is resistant to (not killed by) the usual antibiotics. This infection is caused by bacteria called Methicillin-Resistant Staphylococcus Aureus (MRSA). Your doctor prescribed an antibiotic that will work against MRSA. IT IS IMPORTANT to fill and finish this prescription. A drain and/or packing have been placed in your abscess to help the wound heal. The packing in your wound will need to be changed. This can be done by your family doctor, a referral doctor, this facility or the nearest Emergency Department. Your doctor will set up a plan for you to have the packing changed. Leave the drain and packing in place until you see a doctor. The drain might fall out on its own. If this happens, cover the abscess with a clean dressing (bandage) and follow up with a doctor as scheduled. Until the packing is removed, don?t soak the wound in water, like in a bathtub or pool. Short showers or sponge baths are okay. Keep the wound as dry and clean as possible. YOU SHOULD SEEK MEDICAL ATTENTION IMMEDIATELY, EITHER HERE OR AT THE NEAREST EMERGENCY DEPARTMENT, IF ANY OF THE FOLLOWING OCCURS: You see unusual redness or swelling. You see red streaks on the arm or leg. The wound or drainage smells bad. You have fever (temperature higher than 100.4?F / 38?C), chills, worse pain or swelling. Rodríguez Luis PA-C 06/07/2024 10:30 AM Signed Jesenia Byrnes is a 43 year old female who presents with Edema (Right inner thigh /Swelling redness and pain warm to touch /Started 3-4 days ago /) This is a 43 y/o female here with a painful bump on her right upper inner thigh that started about 4 to 5 days ago however over the past 2 to 3 days she has developed a significant amount of surrounding she has not done anything [id number]. She states it is very painful. No fevers, chills, fatigue, vomiting, body aches redness and swelling. No active drainage from the area of concern. She states she has had a skin abscess/cellulitis however no known history of MRSA. The history is provided by the patient. Edema Pertinent negatives include no chest pain, chills, fever or vomiting. PAST MEDICAL HISTORY No date: Essential hypertension, benign Current Outpatient Medications Medication Sig Dispense Refill buPROPion XL (WELLBUTRIN XL) 300 mg 24 hr tablet Take 300 mg by mouth every morning. cetirizine (ZYRTEC) 10 mg tablet Zyrtec 10 mg tablet multivitamin (VITAMIN DAILY ORAL) Take by mouth once daily. Vitamin D hydrochlorothiazide 25 mg ORAL Tab Take one(1) tablet daily. 0 metoprolol succinate XL (TOPROL XL) 25 mg ORAL Tb24 Take one(1) tablet daily. 0 traMADol (ULTRAM) 50 mg tablet Take 1 tablet by mouth two times a day as needed for pain for up to 3 days. 6 tablet 0 doxycycline hyclate (VIBRAMYCIN) 100 mg capsule Take 1 capsule (100 mg) by mouth two times a day for 10 days. 20 capsule 0 No current facility-administered medications for this visit. Social History Tobacco Use Smoking status: Never Smokeless tobacco: Never Vaping Use Vaping status: Never Used Substance Use Topics Alcohol use: Yes Comment: once or twice a month Drug use: No Review of Systems Constitutional: Negat (more content not included)... [facility] Colonoscopy Reporton 024 Colonoscopy Report [facility] Medical Records Department [address] [place] [id number] Colonoscopy Report MR#: [id number] Acct: [id number] Name: JESENIA BYRNES KACY Rep #: [id number] : 1980 43 From: Matthew Cruz MD PCP: Dr. Nadege Perez, DO Status:[facility] Patient Name: Jesenia Byrnes Procedure Date: 05/09/2024 8:16 AM Date of : 1980 Age: 43 Procedure: Colonoscopy Indications: Colon cancer screening in patient at increased risk: Family history of 1st-degree relative with colon polyps Providers: Matthew Cruz MD Referring MD: Nadege Perez Medicines: See the Anesthesia note for documentation of the administered medications Patient Profile: Last Colonoscopy: none. The patient's first colonoscopy is today. Complications: No immediate complications. Estimated blood loss: Minimal. Procedure: Pre-Anesthesia Assessment: - The heart rate, respiratory rate, oxygen saturations, blood pressure, adequacy of pulmonary ventilation, and response to care were monitored throughout the procedure. After I obtained informed consent, the scope was passed under direct vision. Throughout the procedure, the patient's blood pressure, pulse, and oxygen saturations were monitored continuously. The Colonoscope was introduced through the anus and advanced to the cecum, identified by the appendiceal orifice, ileocecal valve and palpation. The colonoscopy was somewhat difficult due to a tortuous colon. Successful completion of the procedure was aided by withdrawing and reinserting the scope, straightening and shortening the scope to obtain bowel loop reduction and using scope torsion. The patient tolerated the procedure well. The quality of the bowel preparation was adequate to identify polyps. Scope In: 8:45:17 AM Scope Withdrawal Time 0 hours 25 minutes 16 seconds Scope Out: 9:31:19 AM Total Procedure Duration Time 0 hours 46 minutes 2 seconds Findings: The perianal and digital rectal examinations were normal. The descending colon, transverse colon and ascending colon were moderately tortuous. Advancing the scope required changing the patient to a supine position. A 5 mm polyp was found in the transverse colon. The polyp was semi-sessile. Biopsies were taken with a cold forceps for histology. Estimated blood loss was minimal. The exam was otherwise without abnormality on direct and retroflexion views. Impression: - Tortuous colon. - One 5 mm polyp in the transverse colon. Biopsied. - The examination was otherwise normal on direct and retroflexion views. Recommendation: - Discharge patient to home (via wheelchair). - Resume previous diet today. - No aspirin, ibuprofen, naproxen, or other non-steroidal anti-inflammatory drugs for 2 days after biopsy. - Await pathology results. - Repeat colonoscopy date to be determined after pending pathology results are reviewed for surveillance based on pathology results. - Telephone my office for pathology results in 1 week. Procedure Code(s): --- Professional --- 61579, Colonoscopy, flexible; with biopsy, single or multiple Diagnosis Code(s): --- Professional --- Z83.71, Family history of colonic polyps D12.3, Benign neoplasm of transverse colon (hepatic flexure or splenic flexure) Q43.8, Other specified congenital malformations of intestine CPT copyright 2021 [employer]. All rights reserved. The codes documented in this report are preliminary and upon night court magistrate review may be revised to meet current compliance requirements. Matthew Cruz MD 05/09/2024 9:42:44 AM This report has been signed electronically. Number of Addenda: 0 Note Initiated On: 05/09/2024 8:16 AM 05/09/24941 Date Matthew Cruz MD Cosigner Signature: Date (if indicated) CC: Dr. Nadege Perez DO; Dr. Matthew Cruz MD Date Dictated: 05/09/24815 Date Transcribed: Cartoon Artist: JONNY Platt [facility] MR/POSTOP.[facility] 05-09-2024 MR/POSTOP.[facility] Medical Records Department [address] [place] [address] Anesthesia Postop Eval I 05/09/24940 MR#: [id number] Acct: [id number] Name: JESENIA BYRNES Rep #: [id number] : 1980 43 From: Mars Zimmerman PCP: Dr. Nadege Perez DO Status:REG SDC Y Race: C Location: [place] [address] Anesthesia: Postop Eval I Current Vital Signs Temperature: 97 F Pulse Rate: 76 Blood Pressure: 114/101 Respiratory Rate: 18 Pulse Ox: 100 Oxygen Delivery Method: Nasal Cannula Oxygen Flow Rate (L/min): 3 Assessment Airway patent: Yes Spontaneous unlabored respirations: Yes Mental status: Asleep nausea: No Vomiting: No Anesthesia Complication: No Fluid Hydration Crystalloid volume administer (ml): 800 Total IV fluid infused: 800 Progress Note Anesthesia document: Postop Eval 1 completed: Yes 05/09/24941 Date Mars Diaz Signature: Date CC: Signed Normal [facility] MR/[id number] 05-09-2024 MR/POSTOPAN2 [facility] Medical Records Department [address] [facility] [place] [address] Anesthesia Postop Eval II 05/09/24 0943 MR#: [id number] Acct: [id number] Name: JESENIA BYRNES KACY Rep #: [id number] : 1980 43 From: James Jhaveri MD PCP: Dr. Nadege Perez, DO Status:REG [facility] Y Race: C Location: [address] Anesthesia Postop Eval I Sum Postop Eval Completion status Anesthesia document: Postop Eval 1 completed: Yes Anesthesia Postop Eval I Summary Anesthesia Postop Eval I Summary: Anesthesia Postop Eval I: Assessment Summary Airway patent Yes 05/09/24 09:42 [email or web address] Spontaneous unlabored Yes 05/09/24 09:42 [email or web address] respirations Mental status Asleep 05/09/24 09:42 [email or web address] nausea No 05/09/24 09:42 [email or web address] Vomiting No 05/09/24 09:42 [email or web address] Anesthesia Postop Eval I: Fluid Summary Crystalloid volume administer 800 05/09/24 09:42 [email or web address] (ml) Colloids volume administered ( ml) Blood Product volume administered (ml) Total IV fluid infused 800 05/09/24 09:42 [email or web address] Anesthesia Postop Eval I: Summary Notes Anesthesia Complication No 05/09/24 09:42 [email or web address] Anesthesia Complication Comment: Post-operative progress note Anesthesia: Postop Eval II Evaluation Mental status: Awake Pain Level: 0 nausea: No Vomiting: No 05/09/2443 Date James Diaz Signature: Date CC: Signed Normal [facility] Surgery Specimen Level Vinny 05-09-2024 Surgery Specimen Level IV ------- -------- Patient Age/Sex Location Account Attending Physician -------- JESENIA BYRNES 43/F EN [id number] Dr. Matthew Cruz MD -------- Specimen: [id number] Received: 05/09/24 Status: LESLIE Eddie Num: [id number] Spec Type: COLON BX Subm Dr: Dr. Matthew Cruz MD HEADER OPERATION: Colonoscopy with biopsy PRE-OP DIAGNOSIS: Encounter for screening for malignant neoplasm of colon TISSUE SUBMITTED: Transverse polyp biopsy -------- MICROSCOPIC DIAGNOSIS Transverse colon polyp, biopsy: Tubular adenoma. [facility] 05/10/2024 MICROSCOPIC DESCRIPTION Slides are reviewed. GROSS DESCRIPTION Received in fixative is one container labeled with the patient's name and designated Transverse polyp biopsy. The specimen consists of one irregular fragment of light alegria soft tissue that measures 0.3 x 0.3 x 0.1 cm. The specimen is totally submitted in one cassette. [facility] 05/09/2024 TC:5 CPT:12442 -------- Patient Age/Sex Location Account Attending Physician -------- JESENIA BYRNES 43/F EN [id number] Dr. Matthew Cruz MD -------- Signed (signature on file) Dr. Johnny López, DO 05/10/24 1100 -------- Normal [facility] Comment on above: Performed By: #### P SUIV #### [facility] Laboratory [address] [place], [address] Absolute lymphocyte countOrd ered By: Edgar Ramesh on 11-14-2023 Lymphocytes Auto (Unsp spec) [#/Vol] 2.63 10*3/uL 0.83-4.51 [facility] Automated lymphocyte count a s percentage of total leukocytesOrdered By: Edgar Ramesh on 11-14-2023 Lymphocytes/100 WBC Auto (Unsp spec) 21.0 % 19-41 [facility] Basophil percentageOrdered B y: Edgar Ramesh on 11-14-2023 Basophil percentage 0 SEEN /hpf 0-5 [facility] Basophils/100 WBC (Bld) 0.7 % 0-1 [facility] Chloride [Moles/Vol] 107 mmol/L 98-107 [facility] Eosinophils/100 WBC (Bld) 3.8 % 0-5 [facility] Glucose [Mass/Vol] 113 mg/dL 74-106 [facility] Comment on above: Fasting Glucose resu lt from 100 to 125 mg/dL suggests IMPAIRED HOMEOSTASIS per A.D.A. criteria. Hemoglobin (Bld) [Mass/Vol] 12.9 g/dL 12.0-15.0 [facility] Monocytes/100 WBC (Bld) 8.0 % 0-10 [facility] Neutrophils (Bld) [#/Vol] 8.3 10*3/uL 2.0-7.7 [facility] Neutrophils/100 WBC (Bld) 66.1 % 47-70 [facility] Potassium [Moles/Vol] 3.6 mmol/L 3.5-5.1 [facility] Sodium [Moles/Vol] 141 mmol/L 136-145 [facility] WBC (Bld) [#/Vol] 12.6 10*3/uL 4.4-11.0 [facility] Bilirubin Test strip Ql (U)O rdered By: Edgar Ramesh on 11-14-2023 Bilirubin Ql (U) Negative Negative [facility] Determination of erythrocyte mean corpuscular volume (MCV)Ordered By: Edgar Ramesh on 11-14-2023 MCV (RBC) [Entitic vol] 92.1 fL 81-99 [facility] Erythrocyte distribution wid th ratioOrdered By: Edgar Ramesh on 11-14-2023 Erythrocyte distribution width (RBC) [Ratio] 13.1 % 11.6-14.6 [facility] Erythrocyte distribution wid th standard deviationOrdered By: Edgar Ramesh on 11-14-2023 Erythrocyte distribution width (RBC) [Entitic vol] 44.2 fL 35.1-43.9 [facility] Hematocrit Auto (Bld) [Volum e fraction]Ordered By: Edgar Ramesh on 11-14-2023 Hematocrit (Bld) [Volume fraction] 38.7 % 37-47 [facility] Immature granulocytes/100 WB C Auto (Bld)Ordered By: Edgar Ramesh on 11-14-2023 Immature granulocytes/100 WBC (Bld) 0.400 % 0.0-0.9 [facility] Comment on above: IG% - Immature Granu locytes (promyelocytes, myelocytes and metamyelocytes) > 1% indicates that a LEFT SHIFT is Present. Ketones Test strip Ql (U)Ord ered By: Edgar Ramesh on 11-14-2023 Ketones Ql (U) Negative Negative [facility] Laboratory - Chemistry and C hemistry - challengeOrdered By: Edgar Ramesh on 11-14-2023 CO2 [Moles/Vol] 29.0 mmol/L 21.0-32.0 [facility] Urea nitrogen/Creatinine [Mass ratio] 16.2 mg/mg 10-20 [facility] Laboratory - Hematology and Cell countsOrdered By: Edgar Ramesh on 11-14-2023 MCH (RBC) [Entitic mass] 30.7 pg 27.0-32.0 [facility] MCHC (RBC) [Mass/Vol] 33.3 g/dL 32-36 [facility] Nucleated RBC/100 WBC (Bld) [Ratio] 0 % 0-5 [facility] Platelet mean volume (Bld) [Entitic vol] 10.0 fL 6.2-12.0 [facility] Platelets (Bld) [#/Vol] 257 10*3/uL 150-450 [facility] Mucus LM Ql (Urine sed)Order ed By: Edgar Ramesh on 11-14-2023 Mucus Ql (Urine sed) 0 SEEN /hpf [facility] Nitrite Test strip Ql (U)Ord ered By: Edgar Ramesh on 11-14-2023 Nitrite Ql (U) Negative Negative [facility] No Panel InformationOrdered By: Edgar Ramesh on 11-14-2023 Urine RBC 0 SEEN /hpf 0-5 [facility] Estimated Creatinine Clearance Calc 93.10 ml/min [facility] Estimated GFR (MDRD) Amer 84 mL/min >60 [facility] Comment on above: GFR Calc Estimated GFR (MDRD) Non-Af Amer 69 mL/min >60 [facility] Comment on above: Non- GFR Calc Protein Test strip Ql (U)Ord ered By: Edgar Ramesh on 11-14-2023 Protein Ql (U) Negative Negative [facility] RBC Auto (Bld) [#/Vol]Ordere d By: Edgar Ramesh on 11-14-2023 RBC (Bld) [#/Vol] 4.20 10*6/uL 4.2-5.4 [facility] Serum or plasma calcium kush urement (mass/volume)Ordered By: Edgar Ramesh on 11-14-2023 Calcium [Mass/Vol] 9.4 mg/dL 8.5-10.1 [facility] Serum or plasma choriogonado tropin detectionOrdered By: Edagr Ramesh on 11-14-2023 HCG ( test) Ql Negative [facility] Serum or plasma creatinine m easurement (mass/volume)Ordered By: Edgar Ramesh on 11-14-2023 Creatinine [Mass/Vol] 0.93 mg/dL 0.55-1.02 [facility] Comment on above: The validity of the calculated GFR & GFRAA in patients over 70 years has not been determined. Clinical correlation is essential. Serum or plasma urea nitroge n measurement (mass/volume)Ordered By: Edgar Ramesh on 11-14-2023 Urea nitrogen [Mass/Vol] 15 mg/dL 7-18 [facility] Squamous epithelial cells de tection in urine sediment by light microscopyOrdered By: Edgar Ramesh on 11-14-2023 Epithelial cells.squamous LM Ql (Urine sed) 0 SEEN /hpf 5-10 [facility] Thin prep Papanicolaou smear with manual screeningOrdered By: Edgar Ramesh on 11-14-2023 Thin prep Papanicolaou smear with manual screening 5 5-15 [facility] Urine blood detectionOrdered By: Edgar Ramesh on 11-14-2023 RBC Ql (U) 50 /ul Negative [facility] Urine clarityOrdered By: Otf Ramesh on 11-14-2023 Clarity (U) Clear Clear [facility] Urine color determinationOrd ered By: Edgar Ramesh on 11-14-2023 Color (U) Yellow Yellow [facility] Urine glucose detectionOrder ed By: Edgar Ramesh on 11-14-2023 Glucose Ql (U) Normal mg/dl Normal [facility] Urine leukocyte esterase det ection by dipstickOrdered By: Edgar Ramesh on 11-14-2023 Leukocyte esterase Test strip Ql (U) Negative Negative [facility] Urine pHOrdered By: Edgar Ramesh on 11-14-2023 pH (U) 7.0 [pH] 5.0 - 8.0 [facility] Urine sediment bacteria coun t by microscopy (number/high power field)Ordered By: Edgar Ramesh on 11-14-2023 Bacteria LM.HPF (Urine sed) [#/Area] 0 /[HPF] None Seen [facility] Urine specific gravity measu rementOrdered By: Edgar Ramesh on 11-14-2023 Specific gravity (U) [Rel density] 1.010 1.002-1.03 0 [facility] Urine urobilinogen measureme ntOrdered By: Edgar Ramesh on 11-14-2023 Urobilinogen Ql (U) Normal mg/dl Normal [facility] Basophil percentageon 11-30- 2022 Chloride [Moles/Vol] 98 mmol/L 98-107 [facility] Work Phone: Glucose [Mass/Vol] 110 mg/dL 74-106 [facility] Work Phone: Comment on above: Fasting Glucose resu lt from 100 to 125 mg/dL suggests IMPAIRED HOMEOSTASIS per A.D.A. criteria. Potassium [Moles/Vol] 3.1 mmol/L 3.5-5.1 [facility] Work Phone: Sodium [Moles/Vol] 137 mmol/L 136-145 [facility] Work Phone: Laboratory - Chemistry and C hemistry - challengeon 08-31-2022 CO2 [Moles/Vol] 33.0 mmol/L 21.0-32.0 [facility] Work Phone: Urea nitrogen/Creatinine [Mass ratio] 14.7 mg/mg 10-20 [facility] Work Phone: No Panel Informationon 08-31 Estimated GFR (MDRD) Amer 98 mL/min >60 [facility] Work Phone: Comment on above: GFR Calc Estimated GFR (MDRD) Non-Af Amer 81 mL/min >60 [facility] Work Phone: Comment on above: Non- GFR Calc Serum or plasma calcium kush urement (mass/volume)on 08-31-2022 Calcium [Mass/Vol] 9.6 mg/dL 8.5-10.1 [facility] Work Phone: Serum or plasma creatinine m easurement (mass/volume)on 08-31-2022 Creatinine [Mass/Vol] 0.82 mg/dL 0.55-1.02 [facility] Work Phone: Comment on above: The validity of the calculated GFR & GFRAA in patients over 70 years has not been determined. Clinical correlation is essential. Serum or plasma urea nitroge n measurement (mass/volume)on 08-31-2022 Urea nitrogen [Mass/Vol] 12 mg/dL 7-18 [facility] Work Phone: [phone] Thin prep Papanicolaou smear with manual screeningon 08-31-2022 Thin prep Papanicolaou smear with manual screening 6 5-15 [facility] Work Phone: [phone] Absolute lymphocyte counton 08-05-2022 Lymphocytes Auto (Unsp spec) [#/Vol] 3.38 10*3/uL 0.83-4.51 [facility] Work Phone: Basophil percentageon 2021 Basophils/100 WBC (Bld) 0.6 % 0-1 [facility] Work Phone: [phone] Chloride [Moles/Vol] 103 mmol/L 98-107 [facility] Work Phone: [phone] Eosinophils/100 WBC (Bld) 5.1 % 0-5 [facility] Work Phone: [phone] Glucose [Mass/Vol] 93 mg/dL 74-106 [facility] Work Phone: [phone] Neutrophils (Bld) [#/Vol] 4.6 10*3/uL 2.0-7.7 [facility] Work Phone: [phone] Neutrophils/100 WBC (Bld) 48.7 % 47-70 [facility] Work [phone] Potassium [Moles/Vol] 3.2 mmol/L 3.5-5.1 [facility] Work Phone: [phone] Sodium [Moles/Vol] 139 mmol/L 136-145 [facility] Work Phone: [phone] WBC (Bld) [#/Vol] 9.6 10*3/uL 4.4-11.0 [facility] Work Phone: [phone] Blood erythrocytes count (nu mber/volume)on 08-05-2022 RBC (Bld) [#/Vol] 4.20 10*6/uL 4.2-5.4 [facility] Work Phone: [phone] Blood hemoglobin measurement (mass/volume)on 08-05-2022 Hemoglobin (Bld) [Mass/Vol] 13.5 g/dL 12.0-15.0 [facility] Work Phone: Blood lymphocytes/100 leukoc yteson 08-05-2022 Lymphocytes/100 WBC (Bld) 35.4 % 19-41 [facility] Work Phone: Blood monocytes/100 leukocyt eson 08-05-2022 Monocytes/100 WBC (Bld) 9.9 % 0-10 [facility] Work Phone: Blood platelet mean volumeon 08-05-2022 Platelet mean volume (Bld) [Entitic vol] 10.5 fL 6.2-12.0 [facility] Work Phone: Determination of erythrocyte mean corpuscular volume (MCV)on 08-05-2022 MCV (RBC) [Entitic vol] 93.6 fL 81-99 [facility] Work Phone: Hematocrit Auto (Bld) [Volum e fraction]on 08-05-2022 Hematocrit (Bld) [Volume fraction] 39.3 % 37-47 [facility] Work Phone: Laboratory - Chemistry and C hemistry - challengeon 08-05-2022 CO2 [Moles/Vol] 28.0 mmol/L 21.0-32.0 [facility] Work Phone: Urea nitrogen/Creatinine [Mass ratio] 14.3 mg/mg 10-20 [facility] Work Phone: Laboratory - Hematology and Cell countson 08-05-2022 Erythrocyte distribution width (RBC) [Entitic vol] 44.3 fL 35.1-43.9 [facility] Work Phone: Erythrocyte distribution width (RBC) [Ratio] 13.1 % 11.6-14.6 [facility] Work Phone: Immature granulocytes/100 WBC (Bld) 0.300 % 0.0-0.9 [facility] Work Phone: Comment on above: IG% - Immature Granu locytes (promyelocytes, myelocytes and metamyelocytes) > 1% indicates that a LEFT SHIFT is Present. MCH (RBC) [Entitic mass] 32.1 pg 27.0-32.0 [facility] Work Phone: Nucleated RBC/100 WBC (Bld) [Ratio] 0 % 0-5 [facility] Work Phone: MCHC Auto (RBC) [Mass/Vol]on 08-05-2022 MCHC (RBC) [Mass/Vol] 34.4 g/dL 32-36 [facility] Work Phone: No Panel Informationon 08-05 Estimated GFR (MDRD) Amer 68 mL/min >60 [facility] Work Phone: Comment on above: GFR Calc Estimated GFR (MDRD) Non-Af Amer 56 mL/min >60 [facility] Work Phone: Comment on above: Non- GFR Calc Platelets bldon 08-05-2022 Platelets (Bld) [#/Vol] 308 10*3/uL 150-450 [facility] Work Phone: Serum or plasma calcium kush urement (mass/volume)on 08-05-2022 Calcium [Mass/Vol] 9.2 mg/dL 8.5-10.1 [facility] Work Phone: Serum or plasma creatinine m easurement (mass/volume)on 08-05-2022 Creatinine [Mass/Vol] 1.12 mg/dL 0.55-1.02 [facility] Work Phone: Comment on above: The validity of the calculated GFR & GFRAA in patients over 70 years has not been determined. Clinical correlation is essential. Serum or plasma urea nitroge n measurement (mass/volume)on 08-05-2022 Urea nitrogen [Mass/Vol] 16 mg/dL 7-18 [facility] Work Phone: Thin prep Papanicolaou smear with manual screeningon 08-05-2022 Thin prep Papanicolaou smear with manual screening 8 5-15 [facility] Work Phone: BMPon 12-09-2021 Anion gap [Moles/Vol] 9 mmol/L Normal 5-16 [facility] Comment on above: Order Comment: Campu s: M Performed By: #### L 500.86887, L500.35506 #### [facility] [address] [place] [address] Calcium [Mass/Vol] 9.7 mg/dL Normal 8.5-10.5 [facility] Comment on above: Order Comment: Campu s: M Result Comment: NOTE NEW NORMAL RANGE DUE TO REAGENT CHANGE Performed By: #### L 500.29352, L500.05928 #### [facility] [address] [place] [address] Chloride [Moles/Vol] 105 mmol/L Normal 98-107 [facility] Comment on above: Order Comment: Campu s: M Performed By: #### L 500.39697, L500.96748 #### [facility] [address] [place] [address] CO2 [Moles/Vol] 28.0 mmol/L Normal 21-32 [facility] Comment on above: Order Comment: Campu s: M Performed By: #### L 500.16458, L500.75561 #### [facility] [address] [place] [address] Creatinine [Mass/Vol] 0.81 mg/dL Normal 0.510- 0.[address] [facility] Comment on above: Order Comment: Campu s: M Result Comment: Blanca ents receiving either N-Acetylcysteine (NAC) or Metamizole prior to venipuncture, may have falsely depressed results. Performed By: #### L 500.31799, L500.42628 #### [facility] [address] [place] [address] Glucose [Mass/Vol] 85 mg/dL Normal 70-100 [facility] Comment on above: Order Comment: Campu s: M Result Comment: 70-1 00- Normal Fasting; 100-125 Impaired Fasting; greater than 126 on more than one result- Diabetes. ADA guidelines. Results may be falsely elevated after the administration of Sulfapyridine. Results may be falsely depressed after the administration of Sulfasalazine. Performed By: #### L 500.65235, L500.43054 #### [facility] [address] [place] [address] Potassium [Moles/Vol] 3.6 mmol/L Normal 3.5-5.1 [facility] Comment on above: Order Comment: Campu s: M Result Comment: Slig ht Hemolysis, Result may be affected. Performed By: #### L 500.61754, L500.74892 #### [facility] [address] [place] [address] Sodium [Moles/Vol] 142 mmol/L Normal 136-145 [facility] Comment on above: Order Comment: Campu s: M Performed By: #### L 500.55617, L500.37586 #### [facility] [address] [place] [address] Urea nitrogen [Mass/Vol] 17 mg/dL Normal 7-26 [facility] Comment on above: Order Comment: Campu s: M Performed By: #### L 500.34716, L500.70068 #### [facility] [address] [place] [address] Urea nitrogen/Creatinine [Mass ratio] 21 mg/mg Normal 15-24 [facility] Comment on above: Order Comment: Campu s: M Performed By: #### L 500.14621, L500.94752 #### [facility] [address] [place] [address] GFR ESTon 12-09-2021 IF AMER Greater than 60 Normal [facility] Comment on above: Order Comment: Campu s: M Performed By: #### L 500.06416, L500.77193 #### [facility] [address] [place] [address] IF non-AFR AMER Greater than 60 Normal [facility] Comment on above: Order Comment: Campu s: M Performed By: #### L 500.13561, L500.44685 #### [facility] [address] [place], [place] [id number] OR.OPRPTon 12-09-2021 Operative Report Normal [facility] OR.OPRPT [facility] Patient Name: JESENIA BYRNES [address] [facility] Date of : [address] [place] [address] Unit Number: [id number] Operative Report Patient Status: REG [facility] Attending Doctor: Mars Santizo MD Service Date: 12/09/211322 Operative Report Procedure Date: 12/09/21 Attending Physician: Mars Santizo MD Procedure: Preoperative Diagnosis: Degenerative arthritis torn medial meniscus left knee Postoperative Diagnosis: Same plus plica synovalis Procedure Type: Diagnostic arthroscopy, partial medial meniscectomy, chondroplasty medial femoral condyle chondroplasty femoral sulcus resection of plica patellofemoral compartment Anesthesia: [] Estimated Blood Loss: [] IV Fluids: [] Urine Output: [] Complications: [] Findings/Specimens: Upon visualization of the medial compartment the patient exhibited a incompletely healed basically posterior based flap tear of the posterior horn of the medial meniscus that was of deep very degenerative tissue and quite unstable the previously placed anchor was visualized and removed the unstable portion of the meniscus which amounted to pretty much the entire posterior horn was resected there was 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 The intercondylar contents were normal the lateral compartment was normal patellofemoral compartment demonstrated an area of chondromalacia involving the the lateral most aspect of the medial femoral condyle and the patellofemoral groove the patella was in good condition there was a large thickened band of scar tissue around the lateral aspect of the patella snapping over the lateral femoral condyle this was resected. I do not know whether this was from her previous surgical procedure or whether this truly was a plica. Procedure Details: Patient was brought to the operating room placed under general anesthesia a tourniquet was placed around the left lower extremity left lower extremity was then prepped and draped in usual sterile orthopedic fashion after it was placed in a leg padilla. A standard superomedial puncture was made the knee was insufflated with saline and lateral parapatellar puncture was made the arthroscopic cannula was introduced into the gravity compartment was visualized using an 18-gauge needle as a guide a medial portal was made and a probe was introduced into the medial compartment medial compartment was thoroughly visually and tactilely probed and reformed spikes noted at this point using a combination of basket punch rotating shaver the Mytec electrode all the unstable soft tissue there was resected back to firm base. At this point the intercondylar contents were examined which were normal at this point the scope was withdrawn from the knee and inserted into the lateral compartment through the medial portal the lateral compartment was then probed through the lateral portal and the before mentioned bags noted there at this point hardware again was removed the knee the knee was extended and the patellofemoral compartment was examined both through the medial and lateral portals and probed alternately with visualization established medially lateral portal was used as a working portal and the Mytec electrode was used to stabilize the unstable articular cartilage in the femoral sulcus and the rotating shaver was used to resect the plica snapping over the lateral femoral condyle no other abnormalities were noted the knee was irrigated copiously all hardware was removed and the puncture sites closed with 1 simple suture 4-0 nylon Stardust was applied patient was then awakened taken to recovery having tolerated the procedure well Summary: [] Disclaimer This dictation was created using voice recognition software. Phonetic and/or minor grammatical errors may exist. eSign Date and Time Mars Santizo MD Verified/Reviewed by 12/09/21 1327 [facility] KNEE COMP 4 OR MORE VWS LTon 08-25-2021 KNEE COMP 4 OR MORE VWS LT KNEE COMP 4 O R MORE VWS LT Ordering Physician: Mars Santizo MD 08/25/2021 7:23 AM LEFT KNEE 5 VIEWS: Clinical Statement: Left knee pain. Comparison: None. FINDINGS: 5 views of the left knee were obtained. There are mild tricompartment degenerative changes. There is a small joint effusion. Bone mineralization is normal. No osseous erosions, abnormal bone lesion or fracture. No soft tissue calcifications or chondrocalcinosis. IMPRESSION: Mild tricompartmental osteoarthritis. Small joint effusion. No acute osseous abnormality. This report was electronically signed by Matthew Shrestha MD 08/25/2021 7:52 AM Reported By: MATTHEW SHRESTHA M.D. Signed By: MATTHEW SHRESTHA M.D. [facility] Jeannie 07-26-2021 CNPN Telephone (ORTHBR) JESENIA BYRNES ([id number]) 1980 F Date Time Provider Department 07/26/21 MARICEL MERCADO During your visit today, we recorded the following information about you: Kena Johnson RN 07/26/2021 12:11 PM Signed Pt calling in today to request a referral placed for gel injections. ALLA 06/30/21 Please assist. Thank you Lelo Reid 07/26/2021 12:48 PM Signed Prior auth request initiated today. Once we have approval for euflexxa gel injections, we will contact patient and have her schedule. Lelo Reid Allergies As of Date: 07/26/2021 Noted Allergy Reaction TORADOL (KETOROLAC TROMETHAMINE) 07/09/2007 1 - Mental Status Change Date Reviewed: 06/30/2021 Reviewed by: Za Marie - Fully Assessed Reason for Visit: Appointment [186] Prescriptions as of 07/26/2021 - hydrochlorothiazide 25 mg ORAL Tab Take one(1) tablet daily. - metoprolol succinate XL (TOPROL XL) 25 mg ORAL Tb24 Take one(1) tablet daily. 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 Normal [facility] MRI KNEE WO IVCON LTon 06-17 MRI KNEE WO IVCON LT * * *Final Report* * * DATE OF EXAM: Jun 17 2021 3:59PM WRM 0212 - MRI KNEE WO IVCON LT / PROCEDURE REASON: Other closed fracture of left patella, initial encounter * * * * Physician Interpretation * * * * EXAMINATION: MRI LEFT KNEE WITHOUT CONTRAST CLINICAL HISTORY: Internal derangement no injury reported, continuous knee pain, without improvement. Pain in the medial joint line and medial retinaculum. MRI one year prior demonstrated stress fractures. Patient with persistent pain and possibility of surgical intervention discussed. TECHNIQUE: Routine non-contrast MRI of the knee MQ: [id number] COMPARISON: None RESULT: MENISCI: Medial Meniscus: Degenerative change with Non-displaced complex tear in the posterior horn and body with extrusion Lateral Meniscus: Intact. LIGAMENTS: ACL: Intact PCL: Intact MCL: Intact Outward bulging secondary to extruded medially meniscal disc. LCL Complex: Intact CARTILAGE: Medial Femoral Condyle: Large area(s) of predominantly high grade (greater than 50% thickness) cartilage loss and or fissuring with smaller area(s) of full thickness cartilage loss and or fissuring with subchondral reactive marrow change Medial Tibial Plateau: Small area(s) of high grade (greater than 50% thickness) partial thickness cartilage loss and or fissuring Lateral Femoral Condyle: Small area(s) of low grade (less than 50% thickness) partial thickness cartilage loss and or fissuring Lateral Tibial Plateau: Single low grade (less than 50% thickness) cartilage fissure Patella: Normal Trochlea: Small area(s) of low grade (less than 50% thickness) partial thickness cartilage loss and or fissuring TENDONS: The distal quadriceps and patellar tendons are intact. Thickening of the medial joint capsule along the medial retinaculum is nonspecific. The popliteus tendon is intact. BONES AND MARROW: No evidence of fracture or bone marrow replacing process. Minimal lateral patellar subluxation approximately 7 mm. MUSCLES: Muscle bulk and signal intensity are normal. JOINT FLUID AND SYNOVIUM: Moderate joint effusion. Mild synovitis. No Walsh's cyst. OTHER: Mild subcutaneous edema in the anterior knee soft tissues. 1.3 cm ganglion cyst with tail extending from the proximal tibiofibular articulation (series 3 image 17). Localizer images: No additional findings. IMPRESSION: COMPLEX NONDISPLACED TEAR MEDIAL MENISCUS. OSTEOARTHRITIS, MOST PROMINENT IN THE MEDIAL COMPARTMENT. 1.3 CM GANGLION CYST AT THE TIBIOFIBULAR ARTICULATION. Cartoon Artist: ADA Transcribe Date/Time: Jun 17 2021 4:21P Dictated by : JOSELYN HOOPER DO This examination was interpreted and the report reviewed and electronically signed by: KEMI HOWARD MD on Jun 18 2021 8:43AM EST [id number] Normal [facility] CNOVon 06-02-2021 CNOV Office Visit (ORMDNA ) JESENIA BYRNES ([id number]) 1980 F Date Time Provider Department 06/02/21 3:15 PM MARICEL MERCADO During your visit today, we recorded the following information about you: Maricel Mercado DO 06/02/2021 3:52 PM Signed Follow Up Visit Chief Complaint Jesenia Byrnes is a 40 year old female who presents today for follow up office visit. Patient presents with: Left Knee - Established Patient, Knee Pain History of Present Illness PAIN EVALUATION 06/02/2021 1534 Pain Level: 6 Pain Location: Knee-Left Description: Aching;Dull;Throbbing Duration Amount of Time: ? ongoing Frequency: Continuous Intervention/Comfort measure: Relaxation;Reposition ;Other: See comment;Medication;Ex ercise;Cold Physical therapy HPI: Jesenia Byrnes is a [...] treatment plan as discussed. Maricel Mercado DO Referring Provider: JARED TENA [[id number]] Allergies As of Date: 06/02/2021 Noted Allergy Reaction TORADOL (KETOROLAC TROMETHAMINE) 07/09/2007 1 - Mental Status Change Date Reviewed: 06/02/2021 Reviewed by: Lelo Reid - Fully Assessed Reason for Visit: Established Patient [175] Knee Pain [132] Primary Visit Diagnosis:Arthritis of knee [M17.10] Other Visit Diagnoses:Complex tear of medial meniscus of left knee as current injury, subsequent encounter [S83.232D] Stress fracture of left tibia with delayed healing, subsequent encounter [M84.362G] Other closed fracture of left patella, initial encounter [S82.092A] Ord (more content not included)... Normal [facility] Office Visiton 01-31-2017 Documentation of current medications (procedure) Done Invalid Interpretation Code [facility] Work Phone: Tobacco smoking status NHIS Never Invalid Interpretation Code [facility] Work Phone: Tobacco use CPHS Never smoker Invalid Interpretation Code [facility] Work Phone: Office Visit: BP check and l ab reviewon 05-19-2016 Documentation of current medications (procedure) Done Invalid Interpretation Code [facility] Work Phone: Tobacco smoking status NHIS Never Invalid Interpretation Code [facility] Work Phone: [phone] Tobacco use CPHS Never smoker Invalid Interpretation Code [facility] Work Phone: [phone] Lab Report: ANTINUCLEAR ANTI BODIES DIRECTon 05-09-2016 MO Titer Negative Invalid Interpretation Code Negative [facility] Work Phone: [phone] Lab Report: Vitamin D,25 Hyd roxyon 05-09-2016 vitamin D 25-hydroxy, serum 35.6 ng/mL Invalid Interpretation Code [facility] Work Phone: [phone] Office Visit: Health concern son 05-09-2016 blood in urine (hemoglobin) by dipstick 3+ Invalid Interpretation Code [facility] Work Phone: [phone] specific gravity, urine 1.005 Invalid Interpretation Code [facility] Work Phone: [phone] Urine, appearance clear Invalid Interpretation Code [facility] Work Phone: [phone] Urine, bilirubin presence Negative Invali d Interpretation Code [facility] Work Phone: [phone] Urine, color lt. yellow Invalid Interpretation Code [facility] Work Phone: [phone] Urine, glucose presence Negative Invalid Interpretation Code [facility] Work Phone: [phone] Urine, ketones presence Negative Invalid Interpretation Code [facility] Work Phone: [phone] Urine, leukocyte esterase presence Negative Invalid Interpretation Code [facility] Work Phone: [phone] Urine, nitrite presence Negative Invalid Interpretation Code [facility] Work Phone: [phone] Urine, pH 7.0 [pH] Invalid Interpretation Code [facility] Work Phone: [phone] Urine, protein Negative Invalid Interpretation Code [facility] Work Phone: [phone] Urine, urobilinogen presence Negative Invalid Interpretation Code [facility] Work Phone: [phone] Lab Report: CBC W/Diff, Auto matedon 05-07-2016 Basophils/100 leukocytes 0.5 % Invalid Interpretation Code 0-1 [facility] Work Phone: [phone] Eosinophils/100 leukocytes 2.3 % Inval id Interpretation Code 0-5 [facility] Work Phone: [phone] Erythrocytes (RBC) 4.70 10*6/uL Invalid Interpretation Code 4.2-5.4 [facility] Work Phone: [phone] Hematocrit (HCT) 42.5 % Invalid Interpretation Code 37-47 [facility] Work Phone: [phone] Hemoglobin (HGB) 14.0 g/dL Invalid Interpretation Code 12.0-15.0 [facility] Work Phone: [phone] immature granulocytes, percentage of total cells, blood 0.200 % Invalid Interpretation Code 0.0-0.9 [facility] Work [phone] Lymphocytes 2.59 X10 3/UL Invalid Interpretation Code 0.83-4.51 [facility] Work Phone: [phone] Lymphocytes/100 leukocytes 23.4 % Inval id Interpretation Code 19-41 [facility] Work Phone: [phone] MCH 29.8 pg Invalid Interpretation Code 27.0-32.0 [facility] Work [phone] MCHC 32.9 G/GL Invalid Interpretation Code 32-36 [facility] Work Phone: [phone] MCV 90.4 fL Invalid Interpretation Code 81-99 [facility] Work Phone: [phone] Monocytes/100 leukocytes 9.6 % Invalid Interpretation Code 0-10 [facility] Work Phone: [phone] neutrophil count, blood 7.1 X10 3/UL Invalid Interpretation Code 2.0-7.7 [facility] Work Phone: [phone] Neutrophils/100 leukocytes 64.0 % Inval id Interpretation Code 47-70 [facility] Work Phone: [phone] Platelets 303 10*3/mm3 Invalid Interpretation Code 150-450 [facility] Work Phone: [phone] PMV by Deo 10.2 fL Invalid Interpretation Code 6.2-12.0 [facility] Work Phone: [phone] RDW-CA 13.8 % Invalid Interpretation Code 11.6-14.6 [facility] Work Phone: [phone] red blood cell distribution width, size density 45.0 fL High 35.1-43.9 [facility] Work Phone: [phone] WBC (Leukocytes) 11.1 10*3/uL High 4.4-11.0 [facility] Work Phone: [phone] Lab Report: [facility] 05-07-2016 Alanine aminotransferase (ALT) 21 U/L Invalid Interpretation Code 12-78 [facility] Work Phone: [phone] Albumin 3.9 g/dL Invalid Interpretation Code 3.4-5.0 [facility] Work Phone: [phone] Albumin/Globulin Ratio 1.1 {ratio} Invalid Interpretation Code 0.9-2.4 [facility] Work Phone: [phone] Alkaline phosphatase (ALP) 82 U/L Inval id Interpretation Code 50-136 [facility] Work Phone: [phone] Anion gap 7 mmol/L Invalid Interpretation Code 5-15 [facility] Work Phone: [phone] Aspartate aminotransferase (AST) 17 U/L Invalid Interpretation Code 15-37 [facility] Work Phone: [phone] Bilirubin (total) 0.60 mg/dL Invalid Interpretation Code 0.20-1.00 [facility] Work Phone: [phone] BUN/Creatinine Ratio 16.2 RATIO Invalid Interpretation Code 10-20 [facility] Work Phone: [phone] Calcium 9.4 mg/dL Invalid Interpretation Code 8.5-10.1 [facility] Work Phone: [phone] Chloride 100 mmol/L Invalid Interpretation Code 98-107 [facility] Work Phone: [phone] CO2 33.0 mmol/L High 21.0-32.0 [facility] Work Phone: [phone] Creatinine 0.87 mg/dL Invalid Interpretation Code 0.55-1.20 [facility] Work Phone: [phone] eGFR (non-black) 94 mL/min/{1.73_m2} Invalid Interpretation Code >60 [facility] Work Phone: [phone] eGFR (non-black) 78 mL/min/{1.73_m2} Invalid Interpretation Code >60 [facility] Work Phone: [phone] Globulin 3.6 g/dL High 2.3-3.5 [facility] Work Phone: [phone] Glucose 101 mg/dL Invalid Interpretation Code 70-110 [facility] Work Phone: [phone] Potassium 3.1 mmol/L Low 3.5-5.1 [facility] Work Phone: [phone] Protein 7.5 g/dL Invalid Interpretation Code 6.4-8.2 [facility] Work Phone: [phone] Sodium 140 mmol/L Invalid Interpretation Code 136-145 [facility] Work Phone: [phone] Urea nitrogen 14 mg/dL Invalid Interpretation Code 7-18 [facility] Work Phone: [phone] Lab Report: Free T3on 2015 Triiodothyronine (T3) free 2.8 pg/mL Inval id Interpretation Code 2.18-3.98 [facility] Work Phone: Lab Report: Microalbumin,Ran dom Urineon 05-07-2016 Urine, microalbumin 7.79 mg/dL Invalid Interpretation Code Units converted. See lab report for original value. [facility] Work Phone: Lab Report: T4 Free Directon 05-07-2016 Thyroxine (T4) free 1.02 ng/dL Invalid Interpretation Code 0.76-1.46 [facility] Work Phone: Lab Report: Thyroid Stim Hor xena (TSH)on 05-07-2016 Thyroid stimulating hormone (TSH) 0.73 u[iU]/mL Invalid Interpretation Code 0.358-3.74 [facility] Work Phone: Lab Report: PAP I-G w/rfx hr HPVon 08-13-2015 GE use only - for LinkLogic import when terms are not otherwise specified Comment Invalid Interpretation Code . [facility] Work Phone: Replaced Document: (P) Hepat itis ABC Profileon 02-18-2015 BSA (Body Surface Area) Negative Invalid Interpretation Code Negative [facility] Work Phone: hepatitis A antibody, IgM Negative Invali d Interpretation Code Negative [facility] Work Phone: [phone] hepatitis B core antibody, total Negative Invalid Interpretation Code Negative [facility] Work Phone: Vital Signs Date Time Vital Sign Value Performing Clinician Facility 06-07-2024 09:56-0400 Body temperature 97 [degF] Rodríguez Luis PA-C Work Phone: [facility] 06-07-2024 09:56-0400 Body weight 107.96 kg Rodríguez Luis PA-C Work Phone: [facility] 06-07-2024 09:56-0400 Diastolic blood pressure 88 mm[Hg] Rodríguez Luis PA-C Work Phone: [facility] 06-07-2024 09:56-0400 Heart rate 69 /min Rodríguez MOSLEY-C Work Phone: [facility] 06-07-2024 09:56-0400 Respiratory rate 18 /min Rodríguez MOSLEY-C Work Phone: [facility] 06-07-2024 09:56-0400 SaO2% (BldA) [Mass fraction] 97 % Rodríguez MOSLEY-C Work Phone: [facility] 06-07-2024 09:56-0400 Systolic blood pressure 138 mm[Hg] Rodríguez MOSLEY-C Work Phone: [facility] 11-14-2023 06:22-0500 Diastolic blood pressure 90 mm[Hg] [facility] 11-14-2023 06:22-0500 Heart rate 77 /min [facility] 11-14-2023 06:22-0500 Respiratory rate 18 /min [facility] 11-14-2023 06:22-0500 Systolic blood pressure 136 mm[Hg] [facility] 11-14-2023 03:59-0500 Body height 165.1 cm [facility] 11-14-2023 03:59-0500 Body mass index (BMI) [Ratio] 39.4 kg/m2 [facility] 11-14-2023 03:59-0500 Body temperature 97.9 [degF] [facility] 11-14-2023 03:59-0500 Body weight 107.5 kg [facility] 11-14-2023 03:59-0500 SaO2% (BldA) [Mass fraction] 98 % [facility] 05-19-2016 14:17-0400 BMI (Body Mass Index) 36.34 kg/m2 [facility] Work Phone: 05-19-2016 14:17-0400 Body Temperature 98 [degF] [facility] Work Phone: 05-19-2016 14:17-0400 BP Diastolic 80 mm[Hg] [facility] Work Phone: 05-19-2016 14:17-0400 BP Systolic 116 mm[Hg] [facility] Work Phone: 05-19-2016 14:17-0400 BSA (Body Surface Area) 2.06 m2 [facility] Work Phone: 05-19-2016 14:17-0400 Pulse (Heart Rate) 86 /min [facility] Work Phone: 05-19-2016 14:17-0400 Pulse Oximetry 99 % [facility] Work Phone: 05-19-2016 14:17-0400 Respiratory Rate 16 /min [facility] Work Phone: 05-19-2016 14:17-[address] [facility] Work Phone: 05-05-2016 10:36-0400 BP Diastolic 118 mm[Hg] [facility] Work Phone: 05-05-2016 10:36-0400 BP Systolic 170 mm[Hg] [facility] Work Phone: 05-05-2016 10:36-0400 Respiratory Rate 14 /min [facility] Work Phone: 03-05-2013 11:18-0400 Height 165.1 cm [facility] Work Phone: Encounters Encounter Date Encounter Type Care Provider Facility Start: 01-06-2025 End: 01-06-[address] Nadege Perez DO Work Phone: [facility] Work Phone: Start: 01-06-2025 End: 01-06-[address] Nadege Perez DO -Laboratory, [facility] Start: 01-06-2025 End: 01-06-2025 ambulatory Nadege Perez Facility:[facility] Start: 06-07-2024 End: 06-07-2024 ambulatory SELF Facility:[id number] Start: 06-07-2024 End: 06-07-2024 Patient encounter procedure Rodríguez Luis PA-C Work Phone: [facility] Comment on above: Cellulitis and absce ss of right leg (Primary Dx) Start: 05-09-2024 ambulatory Nadege Perez Facility:[facility] Start: 05-09-2024 End: 05-09-2024 ambulatory Matthew De Los Santosterry Facility:[facility] Start: 04-12-2024 ambulatory Letty Ricardo Facility:[facility] Start: 11-14-2023 End: 11-14-2023 Emergency department patient visit [facility]-Emergency Department Work Phone: Start: 10-24-2022 End: 10-24-2022 ambulatory [facility] Work Phone: Start: 10-24-2022 End: 10-24-2022 Discharged Recurring [facility]-Physical Therapy Start: 09-28-[address] Nadege Perez Work Phone: [facility]-Physical Therapy Start: 09-14-[address] Nadege Perez Work Phone: [facility] Start: 09-13-2022 End: 09-13-[address] Nadege Perez Work Phone: [facility] Work Phone: Start: 09-13-2022 End: 09-13-[address] Nadege Perez Work Phone: [facility]-Outpatient Breast Imaging Start: 09-07-2022 Non-patient / Non-visit Dr. Nadege Perez Work Phone: [facility] Start: 09-07-2022 End: 09-07-[address] Nadege Perez Work Phone: [facility] Work Phone: Start: 09-07-2022 End: 09-07-[address] Nadege Perez Work Phone: [facility]-Cardiovascular Services Start: 08-31-2022 End: 08-31-[address] Nadege Perez Work Phone: [facility]-Laboratory, [facility] Start: 08-05-2022 End: 08-05-2022 Patient encounter procedure [facility], [facility] Start: 08-01-2022 End: 08-01-2022 ambulatory [facility] Work Phone: Start: 08-01-2022 End: 08-01-2022 Patient encounter procedure [facility]-Cat Scan, [facility] Start: 07-13-2022 End: 07-13-2022 Discharged Recurring [facility] Therapy Start: 02-16-2022 End: 02-16-2022 Subsequent hospital visit by physician Mars Santizo MD Work Phone: [facility] Start: 02-09-2022 End: 02-09-2022 Subsequent hospital visit by physician Mars Santizo MD Work Phone: [facility] Start: 06-02-2021 End: 06-02-2021 Patient encounter procedure Marciel Mercado DO Work Phone: Orthopaedics Comment on above: Arthritis of knee (P rimary Dx); Complex tear of medial meniscus of left knee as current injury, subsequent encounter; Stress fracture of left tibia with delayed healing, subsequent encounter; Other closed fracture of left patella, initial encounter Procedures Date Procedure Procedure Detail Performing Clinician Start: 11-14-2023 Computed tomography of abdomen and pelvis with intravenous contrast Start: 09-13-2022 Screening mammography D r. Nadege Perez Work Phone: Start: 08-01-2022 MRI of lower extremity Start: 05-05-2016 End: 05-09-2016 25-Hydroxyvitamin D2+25-Hydroxyvitamin D3 [Mass/volume] in Serum or Plasma Nahomi Brito TAKER AWAY Work Phone: Start: 02-16-2015 End: 02-18-2015 *HEABC HEP ABC Profile [id number] Nadege Perez DO Work Phone: Start: 02-16-2015 End: 02-18-2015 *HIV antibody Nadege Perez DO Work Phone: Start: 02-16-2015 End: 02-20-2015 Reagin antibody presence Kaia Ha Work Phone: Plan of Treatment Date Care Activity Detail Author Start: 12-09-2024 Diabetes Screening Diabetes Screenin g [facility] Start: 06-02-2024 Covid-19 Vaccine ( season) Covid-19 Vaccine ( season) [facility] Start: 06-02-2024 Influenza vaccination Influenz a Vaccine (#1) [facility] Start: 11-14-2023 [facility] Start: 2023 Lipid panel Lipid Screening [facility] Start: 2023 Screening for malign ant neoplasm of colon [facility] Start: 06-02-2022 Influenza vaccination INFLUENZ A (Season Ended) [facility] Start: 06-02-2021 Influenza vaccination INFLUENZA (#1) [facility] Start: 04-03-2021 COVID-19 VACCINE (3 - Booster for Moderna series) COVID-19 VACCINE (3 - Booster for Moderna series) [facility] Start: 2018 Mammography MAMMOGRAM [facility] Start: 2018 Screening for malign ant neoplasm of breast Mammogram Screening [facility] Start: 01-31-2017 End: 01-31-2017 X-ray exam of foot [facility] Work Phone: Start: 08-15-2016 End: 05-19-2016 *BMP *BMP [facility] Work Phone: Start: 05-09-2016 End: 05-09-2016 Ct abd&pelv 1+ section/regns CT Abdomen and pelvis; without and with contrast [facility] Work Phone: Start: 05-05-2016 End: 05-05-2016 *MO *MO [facility] Work Phone: Start: 05-05-2016 End: 05-05-2016 *CBC with Differential *CBC with Differential [facility] Work Phone: Start: 05-05-2016 End: 05-05-2016 *CMP Complete Metabolic Panel *CMP Complete Metabolic Panel [facility] Work Phone: Start: 05-05-2016 End: 05-09-2016 25-Hydroxyvitamin D2+25-Hydroxyvitamin D3 [Mass/volume] in Serum or Plasma *Vitamin D (Calciferol) [facility] Work Phone: Start: 05-05-2016 End: 05-05-2016 Follow Up Appt 2 weeks Follow Up Appt 2 weeks [facility] Work Phone: Start: 05-05-2016 End: 05-05-2016 Thyroid stimulating hormone (TSH) *TSH [facility] Work Phone: Start: 05-05-2016 End: 05-05-2016 Thyroxine (T4) free *T4 free [facility] Work Phone: Start: 05-05-2016 End: 05-05-2016 Triiodothyronine (T3) free *T3-Free [facility] Work Phone: Start: 05-05-2016 End: 05-05-2016 Urine, microalbumin *Urine, Microalbumin [facility] Work Phone: Start: 04-14-2016 End: 04-14-2016 Mammogram, both breasts Mammogram, Diagnostic, both breasts [facility] Work Phone: Start: 04-01-2016 End: 04-01-2016 Mammogram, screening Mammogram, Screening, both breasts [facility] Work Phone: Start: 02-16-2015 End: 02-16-2015 *CHLGC - Chlamydia/GC DNA Probe [id number] *CHLGC - Chlamydia/GC DNA Probe [id number] [facility] Work Phone: Start: 02-16-2015 End: 02-18-2015 *[facility] HEP ABC Profile [id number] *[facility] HEP ABC Profile [id number] [facility] Work Phone: Start: 02-16-2015 End: 02-18-2015 *HIV antibody *HIV antibody [facility] Work Phone: Start: 02-16-2015 End: 02-20-2015 Reagin antibody presence *RPR [facility] Work Phone: Start: 09-11-2014 End: 09-11-2014 X-ray exam of foot X-Ray, Foot [facility] Work Phone: Start: 07-31-2014 End: 07-31-2014 X-ray exam of foot X-Ray, Foot [facility] Work Phone: Start: 2008 HPV TESTING HPV TESTING [facility] Start: 1999 PAP TESTING PAP TESTING [facility] Start: 1999 Screening for malign ant neoplasm of cervix Cervical Cancer Screening [facility] Start: 1997 Hepatitis B Vaccine (1 of 3 - 19+ 3-dose series) Hepatitis B Vaccine (1 of 3 - 19+ 3-dose series) [facility] Start: 1997 Urine microalbumin profile [facility] Start: 1996 Anxiety Screening Anxiety Screening [facility] Start: 1996 Depression Screening Depression Scre ening [facility] Start: 1996 HEPATITIS C SCREENING HEPATITIS C [facility] Start: 1996 Hepatitis C screening Hepatitis C [facility] Start: 1996 HIV SCREENING HIV SCREENING [facility] Start: 1996 HIV screening HIV Screening [facility] Start: 1990 Adult depression scr eening assessment DEPRESSION SCREENING [facility] End: 07-02-2022 Mri any jt lower extrem w/o contrast matrl MRI KNEE WO IVCON LT Radiology Routine Other closed fracture of left patella, initial encounter 1 Occurrences starting 06/02/2021 until 07/02/2022 [facility] Comment on above: 1 Occurrences starti ng 06/02/2021 until 07/02/2022 Patient Education ED Abdominal P ain Unkn Cause Fem ED Constipation (Adult) ED Adenitis, Mesenteric [facility] Work Phone: Patient referral [facility] Work Phone: Serum testosterone measurement [facility] Testosterone Free [Mass/volume] in Serum or Plasma [facility] Testosterone measurement [facility] Immunizations Immunization Date Immunization Notes Care Provider Fa cility 11-04-2020 Covid (Moderna) [facility] 10-07-2020 Covid (Moderna) [facility] 09-04-2018 influenza virus vaccine, unspecified formulation Rodríguez Luis PA-C Work Phone: [facility] 08-30-2017 influenza, injectabl e, quadrivalent, preservative free [facility] 08-30-2017 influenza, seasonal, injectable [facility] 08-18-2016 influenza, injectabl e, quadrivalent, preservative free [facility] 08-18-2016 influenza, seasonal, injectable [facility] 08-17-2015 influenza, injectabl e, quadrivalent, preservative free [facility] 08-17-2015 influenza, seasonal, injectable [facility] 07-10-2014 influenza, injectabl e, quadrivalent, preservative free [facility] 07-10-2014 influenza, seasonal, injectable [facility] Payers Date Payer Category Payer Self-pay [id number] 2024 Unknown [id number] 2024 [id number] 2021 Unknown [id number] 2016 Unknown [employer] [id number] Unknown [employer] [id number] Unknown [id number] Unknown [id number] Unknown [id number] Social History Date Type Detail Facility Start: 06-02-2021 End: 05-09-2024 Tobacco smoking status MNIS Never smoker [facility] Start: 06-02-2021 End: 06-07-2024 Tobacco use and exposure Never used [facility] Start: 06-02-2021 Alcohol intake Current non-dr purchasing analyst of alcohol (finding) [facility] Start: 1980 Sex Assigned At Not on file [facility] Exposure to SARS-CoV -2 (event) Not sure [facility] Start: 02-18-2021 End: 11-14-2023 Tobacco smoking status MNIS Unknown if ever smoked [facility] Start: 06-23-2020 Secondhand [facility] Start: 1980 Sex Assigned At Female W [facility] Start: 06-07-2024 Alcoholic beverage intake Current drinker of alcohol (finding) [facility] Start: 06-02-2021 End: 06-07-2024 History of Social function [facility] Start: 06-02-2021 End: 06-07-2024 Tobacco use panel [facility] National Score (1-100), lower number is lower risk Not on file [facility] Start: 06-07-2024 Alcohol Comment once or twice a yoni h [facility] Start: 01-09-2025 Sex Female (finding) [facility] Medical Equipment Procedure Code Equipment Code Equipment Origin al Text Equipment Identifier Dates Arthroscopy, knee, with meniscal root repair NEEDLE REV CRV DEL SYS FDA Start: 07-01-2020 Arthroscopy, knee, with meniscal root repair NEEDLE REV CRV DEL SYS FDA Start: 07-01-2020 Arthroscopy, knee, with meniscal root repair NEEDLE REV CRV DEL SYS FDA Start: 07-01-2020 Arthroscopy, knee, with meniscal root repair NEEDLE REV CRV DEL SYS FDA Start: 07-01-2020 Arthroscopy, knee, with meniscal root repair NEEDLE REV CRV DEL SYS FDA Start: 07-01-2020 Arthroscopy, knee, with meniscal root repair NEEDLE REV CRV DEL SYS FDA Start: 07-01-2020 Arthroscopy, knee, with meniscal root repair NEEDLE REV CRV DEL SYS FDA Start: 07-01-2020 Arthroscopy, knee, with meniscal root repair NEEDLE REV CRV DEL SYS FDA Start: 07-01-2020 Arthroscopy, knee, with meniscal root repair NEEDLE REV CRV DEL SYS FDA Start: 07-01-2020 Arthroscopy, knee, with meniscal root repair NEEDLE REV CRV DEL SYS FDA Start: 07-01-2020 Arthroscopy, knee, with meniscal root repair NEEDLE REV CRV DEL SYS FDA Start: 07-01-2020 Arthroscopy, knee, with meniscal root repair NEEDLE REV CRV DEL SYS FDA Start: 07-01-2020 Arthroscopy, knee, with meniscal root repair NEEDLE REV CRV DEL SYS FDA Start: 07-01-2020 Arthroscopy, knee, with meniscal root repair NEEDLE REV CRV DEL SYS FDA Start: 07-01-2020 Arthroscopy, knee, with meniscal root repair NEEDLE REV CRV DEL SYS FDA Start: 07-01-2020 Arthroscopy, knee, with meniscal root repair NEEDLE REV CRV DEL SYS FDA Start: 07-01-2020 Arthroscopy, knee, with meniscal root repair NEEDLE REV CRV DEL SYS FDA Start: 07-01-2020 Arthroscopy, knee, with meniscal root repair NEEDLE REV CRV DEL SYS FDA Start: 07-01-2020 Clinical Notes 06-02-2021 to 06-07-2024 Rodríguez Luis PA-C - 06/07/2024 10:18 AM EDTWhitten, ALEXA Evans - 06/07/2024 9:59 AM EDTPatient Instructions Note Date & Type Note Facility 06-07-2024 Note HNO ID: [id number] Author: RODRÍGUEZ LUIS PA-C Service: ? Author Type: Physician Rotary Helper Type: Progress Notes Filed: 06/07/2024 10:30 Note Text: Jesenia Byrnes is a 43 year old female who presents with Edema (Right inner thigh /Swelling redness and pain warm to touch /Started 3-4 days ago /) This is a 43 y/o female here with a painful bump on her right upper inner thigh that started about 4 to 5 days ago however over the past 2 to 3 days she has developed a significant amount of surrounding she has not done anything [id number]. She states it is very painful. No fevers, chills, fatigue, vomiting, body aches redness and swelling. No active drainage from the area of concern. She states she has had a skin abscess/cellulitis however no known history of MRSA. The history is provided by the patient. Edema Pertinent negatives include no chest pain, chills, fever or vomiting. PAST MEDICAL HISTORY No date: Essential hypertension, benign Current Outpatient Medications Medication Sig Dispense Refill buPROPion XL (WELLBUTRIN XL) 300 mg 24 hr tablet Take 300 mg by mouth every morning. cetirizine (ZYRTEC) 10 mg tablet Zyrtec 10 mg tablet multivitamin (VITAMIN DAILY ORAL) Take by mouth once daily. Vitamin D hydrochlorothiazide 25 mg ORAL Tab Take one(1) tablet daily. 0 metoprolol succinate XL (TOPROL XL) 25 mg ORAL Tb24 Take one(1) tablet daily. 0 traMADol (ULTRAM) 50 mg tablet Take 1 tablet by mouth two times a day as needed for pain for up to 3 days. 6 tablet 0 doxycycline hyclate (VIBRAMYCIN) 100 mg capsule Take 1 capsule (100 mg) by mouth two times a day for 10 days. 20 capsule 0 No current facility-administered medications for this visit. Social History Tobacco Use Smoking status: Never Smokeless tobacco: Never Vaping Use Vaping status: Never Used Substance Use Topics Alcohol use: Yes Comment: once or twice a month Drug use: No Review of Systems Constitutional: Negative for chills and fever. Respiratory: Negative for shortness of breath. Cardiovascular: Negative for chest pain. Gastrointestinal: Negative for diarrhea and vomiting. Neurological: Negative for dizziness. BP 138/88 Pulse 69 Temp (Src) 97 (Temporal) Resp 18 Wt 238 lb (108.0kg) SpO2 97% Physical Exam Vitals and nursing note reviewed. Constitutional: General: She is not in acute distress. Appearance: She is not ill-appearing or toxic-appearing. HENT: Head: Normocephalic and atraumatic. Mouth/Throat: Mouth: Mucous membranes are moist. Cardiovascular: Rate and Rhythm: Normal rate and regular rhythm. Pulmonary: Effort: Pulmonary effort is normal. No respiratory distress. Breath sounds: No stridor. No wheezing, rhonchi or rales. Musculoskeletal: Cervical back: Neck supple. Legs: Comments: Marked area on the right proximal medial thigh is where there is an approximate 2.5 x 2.5 raised area consistent with likely abscess. No central innocuous. No fluctuance. Firm to palpation. There is an approximate 3 cm surrounding erythema and edema. Slightly indurated. No lymphangitic streaking. No active drainage. Skin: General: Skin is warm and dry. Neurological: Mental Status: She is alert. Comments: Awake and alert. Motor gross intact. Steady gait. This is a 43-year-old female presents with clinical findings consistent with abscess with localized cellulitis. At the time of my exam, patient was afebrile, well-appearing, well-hydrated, not hypoxic, non-toxic and in no acute distress and appropriate for outpatient treatment and management. Discussed with the patient performing IANDD although at this time I have a lower clinical concern for large focal collection however at this time would like to start antibiotics and do warm soaks. No clinical concern for lymphangitis or necrotizing fasciitis at this time. I am going to start her on doxycycline. Discussed signs and symptoms, progression, and treatment. Patient education provided and discussed along with printed information regarding treatment and follow-up. Patient advised to follow-up with patient's PCP in 3-5 days if no improvement in symptoms. Discussed signs/symptoms and red flags to monitor for and should symptoms worsen, advised patient to go to nearest ER for evaluation. Patient agreeable to plan and verbalized understanding. Pt discharged home in stable condition. (L03.115, L02.415) Cellulitis and abscess of right leg (primary encounter diagnosis) Plan: traMADol (ULTRAM) 50 mg tablet, doxycycline hyclate (VIBRAMYCIN) 100 mg capsule Doxycycline twice daily for 10 days. - drink a full glass of water with each dose - do not take with milk/dairy products - avoid sun exposure - it raises your risk for burn - if you take calcium or iron supplements, do not take them while you take this, or take them at a different time of day - stay upright for 30 minutes after taking this medicine Tramadol 1 (more content not included)... [facility] 06-07-2024 History of Present illness Narrative Images from the original note were not included. Jesenia Byrnes is a 43 year old female who presents with Edema (Right inner thigh /Swelling redness and pain warm to touch /Started 3-4 days ago /) This is a 43 y/o female here with a painful bump on her right upper inner thigh that started about 4 to 5 days ago however over the past 2 to 3 days she has developed a significant amount of surrounding she has not done anything [id number]. She states it is very painful. No fevers, chills, fatigue, vomiting, body aches redness and swelling. No active drainage from the area of concern. She states she has had a skin abscess/cellulitis however no known history of MRSA. The history is provided by the patient. Edema Pertinent negatives include no chest pain, chills, fever or vomiting. PAST MEDICAL HISTORY No date: Essential hypertension, benign Current Outpatient Medications Medication Sig Dispense Refill buPROPion XL (WELLBUTRIN XL) 300 mg 24 hr tablet Take 300 mg by mouth every morning. cetirizine (ZYRTEC) 10 mg tablet Zyrtec 10 mg tablet multivitamin (VITAMIN DAILY ORAL) Take by mouth once daily. Vitamin D hydrochlorothiazide 25 mg ORAL Tab Take one(1) tablet daily. 0 metoprolol succinate XL (TOPROL XL) 25 mg ORAL Tb24 Take one(1) tablet daily. 0 traMADol (ULTRAM) 50 mg tablet Take 1 tablet by mouth two times a day as needed for pain for up to 3 days. 6 tablet 0 doxycycline hyclate (VIBRAMYCIN) 100 mg capsule Take 1 capsule (100 mg) by mouth two times a day for 10 days. 20 capsule 0 No current facility-administered medications for this visit. Social History Tobacco Use Smoking status: Never Smokeless tobacco: Never Vaping Use Vaping status: Never Used Substance Use Topics Alcohol use: Yes Comment: once or twice a month Drug use: No Review of Systems Constitutional: Negative for chills and fever. Respiratory: Negative for shortness of breath. Cardiovascular: Negative for chest pain. Gastrointestinal: Negative for diarrhea and vomiting. Neurological: Negative for dizziness. BP 138/88 Pulse 69 Temp (Src) 97 (Temporal) Resp 18 Wt 238 lb (108.0kg) SpO2 97% Physical Exam Vitals and nursing note reviewed. Constitutional: General: She is not in acute distress. Appearance: She is not ill-appearing or toxic-appearing. HENT: Head: Normocephalic and atraumatic. Mouth/Throat: Mouth: Mucous membranes are moist. Cardiovascular: Rate and Rhythm: Normal rate and regular rhythm. Pulmonary: Effort: Pulmonary effort is normal. No respiratory distress. Breath sounds: No stridor. No wheezing, rhonchi or rales. Musculoskeletal: Cervical back: Neck supple. Legs: Comments: Marked area on the right proximal medial thigh is where there is an approximate 2.5 x 2.5 raised area consistent with likely abscess. No central innocuous. No fluctuance. Firm to palpation. There is an approximate 3 cm surrounding erythema and edema. Slightly indurated. No lymphangitic streaking. No active drainage. Skin: General: Skin is warm and dry. Neurological: Mental Status: She is alert. Comments: Awake and alert. Motor gross intact. Steady gait. This is a 43-year-old female presents with clinical findings consistent with abscess with localized cellulitis. At the time of my exam, patient was afebrile, well-appearing, well-hydrated, not hypoxic, non-toxic and in no acute distress and appropriate for outpatient treatment and management. Discussed with the patient performing I&D although at this time I have a lower clinical concern for large focal collection however at this time would like to start antibiotics and do warm soaks. No clinical concern for lymphangitis or necrotizing fasciitis at this time. I am going to start her on doxycycline. Discussed signs and symptoms, progression, and treatment. Patient education provided and discussed along with printed information regarding treatment and follow-up. Patient advised to follow-up with patient's PCP in 3-5 days if no improvement in symptoms. Discussed signs/symptoms and red flags to monitor for and should symptoms worsen, advised patient to go to nearest ER for evaluation. Patient agreeable to plan and verbalized understanding. Pt discharged home in stable condition. (L03.115, L02.415) Cellulitis and abscess of right leg (primary encounter diagnosis) Plan: traMADol (ULTRAM) 50 mg tablet, doxycycline hyclate (VIBRAMYCIN) 100 mg capsule Doxycycline twice daily for 10 days. - drink a full glass of water with each dose - do not take with milk/dairy products - avoid sun exposure - it raises your risk for burn - if you take calcium or iron supplements, do not take them while you take this, or take them at a different time of day - stay upright for 30 minutes after taking this medicine Tramadol 1 tab every 12 hours for pain Warm compress or soaks Return in 48-72 hours if not improving. Rodríguez Luis PA-C This document has been created with the use of voice recognition technology. Every effort was taken to correct for errors however it may contain inaccuracies, misspellings, syntax errors, or word sense that escaped review. Please inquire further with the author for clarification if needed. Patient declined depression screening at this time. Forrest Milligan LPN documented in this encounter [facility] 06-07-2024 Instructions Rodríguez Luis PA-C - 06/07/2024 10:18 AM EDT Doxycycline twice daily for 10 days. - drink a full glass of water with each dose - do not take with milk/dairy products - avoid sun exposure - it raises your risk for burn - if you take calcium or iron supplements, do not take them while you take this, or take them at a different time of day - stay upright for 30 minutes after taking this medicine Tramadol 1 tab every 12 hours for pain Warm compress or soaks Return in 48-72 hours if not improving. Abscess You were diagnosed with an abscess of the: Skin. An abscess is a sore that is infected and filled with pus. It is caused by an infection with bacteria. Sometimes a splinter or other object stuck in the skin can cause an infection that can become an abscess. The body traps the infection in a tight pocket to try to stop the infection from spreading to other areas. The usual treatment is to make a cut in the abscess so the pus can drain out. Most abscesses heal quickly with no need for antibiotics. Your doctor has determined that antibiotics ARE necessary to treat your abscess. Fill the prescription and take all medications as prescribed until they are all gone. The doctor suspects that your infection is resistant to (not killed by) the usual antibiotics. This infection is caused by bacteria called Methicillin-Resistant Staphylococcus Aureus (MRSA). Your doctor prescribed an antibiotic that will work against MRSA. IT IS IMPORTANT to fill and finish this prescription. A drain and/or packing have been placed in your abscess to help the wound heal. The packing in your wound will need to be changed. This can be done by your family doctor, a referral doctor, this facility or the nearest Emergency Department. Your doctor will set up a plan for you to have the packing changed. Leave the drain and packing in place until you see a doctor. The drain might fall out on its own. If this happens, cover the abscess with a clean dressing (bandage) and follow up with a doctor as scheduled. Until the packing is removed, don t soak the wound in water, like in a bathtub or pool. Short showers or sponge baths are okay. Keep the wound as dry and clean as possible. YOU SHOULD SEEK MEDICAL ATTENTION IMMEDIATELY, EITHER HERE OR AT THE NEAREST EMERGENCY DEPARTMENT, IF ANY OF THE FOLLOWING OCCURS: You see unusual redness or swelling. You see red streaks on the arm or leg. The wound or drainage smells bad. You have fever (temperature higher than 100.4 F / 38 C), chills, worse pain or swelling. documented in this encounter [facility] 06-07-2024 Note HNO ID: [id number] Author: FORREST MILLIGAN LPN Service: ? Author Type: LICENSED NURSE Type: Progress Notes Filed: 06/07/2024 10:30 Note Text: Patient declined depression screening at this time. Forrest Milligan LPN [facility] 05-09-2024 Note [facility] Medical Records Department [address] [place] [address] History Physical Exam 05/09/24 0832 MR#: [id number] Acct: [id number] Name: JESENIA BYRNES Rep #: [id number] : 1980 43 From: Matthew Cruz MD PCP: Dr. Nadege Perez, DO Status:[facility] Location: [place] [address] HPI - General General Date of Service: 05/09/24 Chief Complaint: Colon cancer screening HPI Narrative JESENIA BYRNES, is a 43 F who presents for screening colonoscopy. She confirms her preappointment questionnaire that she has not experienced any change in her bowel habits-and particularly denies any notice of blood.She does share that most weeks it takes a couple of days to have a bowel movement. She also reports that back in November she was seen in the emergency department for left lower quadrant discomfort that was attributed to constipation. She also sharesa family history of Polyps in her mother. Lastly she confirms that her prep was completed successfully and that her output is now clear. [facility] Medical History Wears glasses Alcohol use Arthritis DVT (deep venous thrombosis) Restless legs Back pain Migraine headache Injury of head and neck Non-smoker Asthma History of edema Depression with anxiety Hypertension Home Medications ???Medication ???Instructions ???Recorded ???Last Taken ???Type albuterol sulfate 90 mcg/actuation 1 - 2 puff inhalation Q6H PRN PRN 06/22/16 Unknown History aerosol inhaler Asthma bupropion HCl 150 mg tablet,12 hr 300 mg PO DAILY DEPRESSION 06/22/16 05/08/24 History sustained-release cetirizine 10 mg tablet 10 mg PO DAILY PRN Allergies 06/22/16 05/08/24 History hydrochlorothiazide 25 mg tablet 25 mg PO DAILY BP 06/22/16 05/08/24 History lorazepam 0.5 mg tablet 0.5 mg PO DAILY PRN PRN Anxiety 06/22/16 Unknown History metoprolol tartrate 25 mg tablet 25 mg PO DAILY BP 06/22/16 05/09/24 History fluticasone propionate 50 1 spray NASAL DAILY PRN Allergies 09/20/18 Unknown History mcg/actuation nasal spray,suspension cyanocobalamin (vitamin B-12) 500 300 mcg PO DAILY 06/23/20 05/08/24 History mcg tablet naproxen 500 mg tablet (Naprosyn) 500 mg PO BID PRN pain #20 tabs 11/14/23 Unknown Rx meloxicam 15 mg tablet 15 mg PO DAILY PRN PRN pain 05/06/24 Unknown History Allergy/AdvReac Type Severity Reaction Status Date / Time bee venom protein (honey bee) Allergy Swelling Verified 05/09/24 07:46 ketorolac (From Toradol) Allergy PASSING OUT Verified 05/09/24 07:46 adhesive tape AdvReac Rash Verified 05/09/24 07:46 Family History Mother Colon polyps Surgical History History of cystoscopy History of hysteroscopy Hx of total knee arthroplasty Hx of tonsillectomy Hx of section History of endometrial ablation H/O arthroscopy of left knee Social History current occupational status: employed Smoking Status: Never smoker substance use type: does not use Past Medical/Surgical History Planned Operation Planned Operative Procedure(s): CSCOPE OA S.O.S: No Previous Hospitalizations/Surgeries HX Hospitalizations: No HX of Surgeries: CSECTION X3 WISDOM TEETH D C 2006 TONSILLECTOMY 2007 LEFT KNEE SCOPE GANGLION CYST LEFT MIDDLE FINGER 2000 TUBAL LIGATION AFTER 2010 CSECTION 2016 KIDNEY STONE/ESWL,CYSTOSCOPY hysteroscopy suction d c 2017 Any Problems With Anesthesia: Yes (N,V) You/Your Family Experience Fever (Hyperthermia) With Anes: No Cholinesterase deficiency: No Cardiovascular Hx Chest Pain within Last 2 months: No Hx of Irregular Heartbeat and/or Afib: No Hx Heart Attack: No Hx Congestive Heart Failure: No Hx Rheumatic Fever: No Hx Hypertension: Yes (CONTROLLED WITH MED) Hx Internal Defibrillator: No Hx Pacemaker: No Hx Cardiac Catheterization: No Hx Cardiac Surgery/Stents/Etc.: No Hx Stress Test: No (.) Hx Pain in Legs when Walking/Leg Cramps: Yes (left knee) Respiratory Chronic Cough: No HX of Shortness of Breath: No Hoarseness: No Hx Chronic Obstructive Pulmonary Disease (COPD): No Hx Asthma: Yes (ASTHMATIC REACTION WITH ALLERGIES) Hx Emphysema: No Hx Sleep Apnea: No Hx Respiratory Tract Infection/Cold (presently): No Do You Snore Loudly (louder than talking or can be heard): Yes Do You Often Feel Tired/ Fatigued/ Sleepy Dring Daytime?: No Has Anyone Observed You Stop Breathing During Sleep?: No Result (for STOP score): Positive Hx Smoking: No Smoking Status: Never smoker Gastrointestinal Hx Gastrointestinal Disorders: No Hx Gastrointestinal Bleed: No Hx Ulcer: No Hx Hiatal Hernia: No Difficulty Chewing/Swallowing: No Special diet follo (more content not included)... [facility] 11-14-2023 Discharge summary Note Date/Time November 14, 2023 4:21am [facility] Medical Records Department [address] [place] [address] Emergency Department Summary 11/14/23 MR#: [id number] Acct: [id number] Name: JESENIA BYRNES KACY Rep #:[id number] : 1980 43 From: Edgar Ramesh MD PCP: Dr. Nadege Perez, DO Status:REG ER Location: ED HPI HPI - GI History of Present Illness Chief Complaint: Abd Pain Informant: patient Abdominal Pain/Flank Pain Onset: Hours (4-5) Context: Gradual Onset Timing: Continuous Quality: Aching Location: LLQ Current Severity: Severe Maximum Severity: Severe Worsened by: Nothing Relieved by: Nothing Nausea/Vomiting/Emesis GI Symptom: Positive for Nausea; Negative for Vomiting Diarrhea/Melena/Hematochezia GI Symptom: Negative for Diarrhea, Melena or Hematochezia Associated Symptoms Associated Symptoms: Negative for Dysuria, Frequency, Hematuria or Urgency Narrative Narrative: 43-year-old female presenting with 4 to 5 hours worth of left lower quadrant pain deep in the pelvis started around bedtime and has gotten progressively worse throughout the day. Denies any recent illness prior to this or injury. No changes in urination or bowel movements lately. A little nausea with this but no vomiting. No fevers or chills. Pain does not radiate into her back or anywhere else. Has not migrated. Does not recall ever having had this before. No history of ovarian cyst that she knows of, she did have very heavy menstrual cycles and several years ago had an endometrial ablation, and has not been having cycles since then. Had a couple C-sections no other abdominal surgeries. [facility] Medical History Hx of renal calculi Hypertension Home Medications albuterol sulfate 90 mcg/actuation aerosol inhaler 1 - 2 puff inhalation Q6H PRNPRN Asthma 06/22/16 [History Last Taken Unknown] bupropion HCl 150 mg tablet,12 hr sustained-release 300 mg PO DAILY DEPRESSION 06/22/16 [History Last Taken 07/01/20] cetirizine 10 mg tablet 10 mg PO DAILY PRN Allergies 06/22/16 [History Last Taken Unknown] hydrochlorothiazide 25 mg tablet 25 mg PO DAILY BP 06/22/16 [History Last Taken 07/01/20] lorazepam 0.5 mg tablet 0.5 mg PO DAILY PRN PRN Anxiety 06/22/16 [History Last Taken Unknown] metoprolol tartrate 25 mg tablet 25 mg PO DAILY BP 06/22/16 [History Last Taken 07/01/20] fluticasone propionate 50 mcg/actuation nasal spray,suspension 1 spray NASAL DAILY PRN Allergies 09/20/18 [History Last Taken Unknown] escitalopram oxalate 5 mg tablet 5 mg PO DAILY 05/27/20 [History Last Taken Unknown] cyanocobalamin (vitamin B-12) 500 mcg tablet 300 mcg PO DAILY 06/23/20 [History Last Taken Unknown] meloxicam 15 mg tablet 15 mg PO DAILY 30 days #30 tabs 02/18/21 [Rx Last Taken Unknown] dicyclomine 10 mg capsule 20 mg (2 x 10 mg) PO Q6H PRN PRN abdominal pain #20 CAPSULES 11/14/23 [Rx Last Taken Unknown] naproxen 500 mg tablet (Naprosyn) 500 mg PO BID PRN pain #20 tabs 11/14/23 [Rx Last Taken Unknown] ondansetron 4 mg disintegrating tablet 8 mg (2 x 4 mg) PO Q8H PRN PRN Nausea #12tabs 11/14/23 [Rx Last Taken Unknown] Allergy/AdvReac Type Severity Reaction Status Date / Time bee venom protein (honey bee) Allergy Swelling Verified 11/14/23 03:59 ketorolac [From Toradol] Allergy PASSING OUT Verified 11/14/23 03:59 Surgical History H/O arthroscopy of left knee History of endometrial ablation Hx of section Hx of tonsillectomy Social History Smoking Status: Never smoker ROS ROS ED Constitutional Constitutional ED: Denies chills or fever(s) Eyes Eyes: Denies change in vision or diplopia ENT ENT ED: Denies rhinorrhea or sore throat Cardiovascular Cardiovascular: Denies chest pain or palpitations Respiratory/Chest Respiratory/Chest: Denies cough or dyspnea Gastrointestinal Gastrointestinal: Reports as per HPI, abdominal pain and nausea; Denies diarrheaor vomiting Genitourinary Genitourinary ED: Denies dysuria or hematuria Musculoskeletal Musculoskeletal: Denies back pain or neck pain Integumentary Denies abscess or rash Neurologic Neurologic: Denies headache(s), paresthesias or weakness Psychiatric Psychiatric: Denies anxiety or suicidal thoughts EXAM Physical Exam Const Vital Signs: 11/14/23 03:59 Temperature 97.9 F Temperature Source Temporal Pulse Rate 78 Respiratory Rate 18 Blood Pressure 155/100 H Blood Pressure Mean 118 Pulse Ox 98 Oxygen Delivery Method Room Air Positive well nourished, well developed and obese Constitutional Narrative: Uncomfortable but in no distress General Appearance ED: well developed and NAD Nutritional Appearance: obese HEENT Reports moist mucous membranes normocephalic and atraumatic Eyes PERRL and EOMs intact bilaterally Neck full ROM and supple Resp normal respiratory effort and clear to auscultation bilaterally Cardio regular rate, regular rhythm and no murmurs GI non-distended GI Narrative: Tender distal left lower quadrant without guarding or rebound tenderness. Equalpulses both lower extremities. No pulsatile mass. Normal inspection of abdomen. No distention. Auscultation: normoactive bowel sounds Palpation: soft Back/Spine no CVA tenderness General Back: other FROM Extremity normal to inspection General Extremety ED: Negative for edema, pulses abnormal or tenderness General Extremity: Negative for edema or pulses abnormal Neuro oriented x3, CN's II-XII intact bilaterally and no sensory deficits noted Sensorium / Orientation: awake and alert Motor Exam: strength 5/5 throughout Skin no rashes or lesions noted and no wounds MDM MDM MDM Narrative Medical decision making narrative: Differential includes mostly GI and ovarian pathology, in addition to kidney stones which she has a history of but not with pain. Patient presents in the middle of the night when CT is readily available but ultrasound was not. For this reason CT was chosen first of the imaging of choice. A was obtained and is negative in order to rule out ectopic, although this was a very low pretest probability since she had an endometrial ablation several years ago. While working her up, she was given morphine and Zofran for her symptoms. Labs show mild nonspecific leukocytosis without a leftward shift or bandemia, and urinalysis shows microscopic hematuria but no signs of infection. Renal function and electrolytes all within normal limits. She is feeling little bit better after medications. I reviewed the CT images and the report which I agreewith, there is no hydronephrosis or ureterolithiasis, and there is no sign of diverticulitis or acute inflammatory findings. She does have a significant amount of stool in the colon, however in discussing her recent stool habits, shestates she had 2 large bowel movements day before yesterday and a large 1 last night. Constipation may or may not be causing her discomfort with this finding. There is no sign of an obstruction, however. She has some mild mesenteric adenopathy which could be causing the pain. Radiology mentions some mild prominence of the endometrial cavity, I suspect this is probably due to having had an ablation. There is no sign of an ovarian mass, to suggest torsion is unlikely because here, nor is there free fluid to suggest a ruptured or hemorrhagic cyst. Given all of this she understands that narcotics may not be the best option here for pain control, since it can cause worsening constipation, she agrees she is stable enough to be discharged home does not require medical admission at this time. I have given her dicyclomine prior to discharge as well as a prescription for some and naproxen. She has an allergy/insensitivity to Toradol but she can take Aleve and ibuprofen without side effect or problem so she should be okay with that, in addition to some Zofran as needed she is comfortable with that plan of following up with her doctor if symptoms do not yuko spontaneously. We discussed the consideration of a pelvic ultrasound however that test is not available at this hour and I do not think she needs it emergently at this time. Lab Data Attestation: I reviewed the patient's lab results. Labs: Laboratory Results - last 24 hr 11/14/23 11/14/23 04:00 04:57 WBC 12.6 H RBC 4.20 Hgb 12.9 Hct 38.7 MCV 92.1 MCH 30.7 MCHC 33.3 RDW Std Deviation 44.2 H RDW Coeff of Zandra 13.1 Plt Count 257 MPV 10.0 Immature Gran % (Auto) 0.400 Neut % (Auto) 66.1 Lymph % (Auto) 21.0 Edgar % (Auto) 8.0 Eos % (Auto) 3.8 Baso % (Auto) 0.7 Absolute Neuts (auto) 8.3 H Absolute Lymphs (auto) 2.63 Nucleated RBC % 0 Sodium 141 Potassium 3.6 Chloride 107 Carbon Dioxide 29.0 Anion Gap 5 BUN 15 Creatinine 0.93 Estim Creat Clear Calc 93.10 Est GFR (MDRD) Af Amer 84 Est GFR (MDRD) Non-Af 69 BUN/Creatinine Ratio 16.2 Glucose 113 H Calcium 9.4 Serum , Qual NEGATIVE Urine Color Yellow Urine Clarity Clear Urine pH 7.0 Ur Specific [place] 1.010 Urine Protein Negative Urine Glucose (UA) Normal Urine Ketones Negative Urine Occult Blood 50 H Urine Nitrite Negative Urine Bilirubin Negative Urine Urobilinogen Normal Ur Leukocyte Esterase Negative Urine RBC 0 SEEN Urine WBC 0 SEEN Ur Squamous Epith Cells 0 SEEN Urine Bacteria 0 SEEN Urine Mucus 0 SEEN Radiography Diagnostic Testing: Clinical Impression(s) from Imaging Studies Abdomen/Pelvis CT 11/14/23 04:10 IMPRESSION: 1. Moderate stool in the proximal two thirds of the colon. Mild gas and stool in the distal colon and rectum. Similar mild mesenteric adenopathy. 2. Nonvisualized appendix. High anterior location of the cecum, no evidence of volvulus or obstruction. 3. Decreased apparent medullary nephrocalcinosis of the kidneys but at least 3 calcifications are seen in the left kidney. No hydronephrosis or ureter stone. 4: Mildly prominent appearance of low attenuation in the endometrial cavity in the uterine fundus, likely mild fluid distending the fundal endometrium. Electronically Signed: Mikayla Ramirez MD at 5:39 EST Reading Location ID and State: [facility] / [place] Tel , Service support , Discharge Plan Triage Chief Complaint: Abd Pain ED Provider: Edgar Ramesh Dx/Rx/DC Orders Clinical Impression: Acute mesenteric adenitis, Abdominal pain, acute, left lower quadrant Instructions: ED Abdominal Pain Unkn Cause Fem, ED Constipation (Adult), ED Adenitis, Mesenteric Prescriptions: New dicyclomine 10 mg capsule 20 mg PO Q6H PRN PRN (Reason: abdominal pain) Qty: 20 0RF ondansetron [ondansetron] 4 mg tablet,disintegrating 8 mg PO Q8H PRN PRN (Reason: Nausea) Qty: 12 0RF naproxen [Naprosyn] 500 mg tablet 500 mg PO BID PRN (Reason: pain) Qty: 20 0RF No Action meloxicam 15 mg tablet 15 mg PO DAILY 30 Days Qty: 30 1RF Rx Instructions: take as directed, stop all other nsaids bupropion HCl 150 MG tablet sustained-release 12 hr 300 mg PO DAILY cetirizine 10 MG tablet 10 mg PO DAILY PRN (Reason: Allergies) hydrochlorothiazide 25 MG tablet 25 mg PO DAILY metoprolol tartrate 25 MG tablet 25 mg PO DAILY lorazepam 0.5 MG tablet 0.5 mg PO DAILY PRN PRN (Reason: Anxiety) albuterol sulfate 1 INHALER inhaler 1 - 2 puff INHALATION Q6H PRN PRN (Reason: Asthma) fluticasone propionate 1 SPRAY spray,suspension 1 spray NASAL DAILY PRN (Reason: Allergies) escitalopram oxalate 5 MG tablet 5 mg PO DAILY cyanocobalamin (vitamin B-12) 500 MCG tablet 300 mcg PO DAILY Primary Care Provider: Nadege Perez Referrals: Nadege Perez DO [Primary Care Provider] - 3-5 Days if not improving Disposition Disposition: Home, Self Care What to do if you have Problems For any increased pain, shortness of breath, bleeding, nausea or vomiting, chestpain, or any unexpected problems, contact your Primary Care Provider. Call [facility] ([phone]) or report to the closest Emergency Room. Call 911 if necessary. 11/14/23 0612 <Electronically signed by Edgar Ramesh MD> Cosigner Signature (if applicable): CC: Dr. Nadege Perez, DO ~ Signed [facility] Work Phone: [phone]) 158-932109-29-2021 NoteHNO ID: [id number] Author: Maricel Mercado DO Service: ? Author Type: Physician Type: [...] MRI Knee - Impression Only MRI KNEE [facility] Exam End: 06/17/2021 3:59 PM (Final result) [...] up for gel injections. (more content not included)...[facility]09-16-2021 NoteHNO ID: [id number] Author: RT Nicki(R) Service: ? Author Type: Technologist Type: Progress [...] PERIPHERAL IV DATA: Not applicable SIGNED BY: RT Nicki(R) June 17, 2021 3:31 [facility]09-01-2021 NoteHNO ID: [id number] Author: Maricel Mercado, DO Service: ? Author [...] with the treatment plan as discussed. Maricel Mercado, [facility]09-01-2021 History of Present illness Narrative* Maricel Mercado, DO - 06/02/2021 3:44 PM EDT Follow Up Visit Chief Complaint Jesenia Byrnes [...] intolerance, new onset joint pain or swelling, newonset extremity weakness or numbness, new onset auditory [...] discussed, so need for new MRI of leftknee today Today, in detail, through a thorough evaluation, we discussed possible etiologies of pain and our plans for further diagnostic and therapeutic interventions. We discussed strategies for decreasing pain and improving strength, stability and motion. Patient's questions were answered in detailed. Patient verbalizes understanding and agrees with the treatment plan as discussed. Maricel Mercado DO documented in [facility] encounter[facility]* Diagnosis Arthritis of knee- Primary Unspecified arthropathy, lower leg Complex tear of medial meniscus of left knee as current injury, subsequent encounter Stress fracture of left tibia with delayed healing, subsequent encounter Other closed fracture of left patella, initial encounter documented in this encounter [facility] noteNo assessment information availableWMercy Health [facility] Work Phone: Evaluation note* Diagnosis Cellulitis and abscess of right leg- Primary documented in this encounter [facility] for referral (narrative)No reason for referral information availableWMercy Health [facility] Work Phone: Reason for Referral Status Reason Specialty Diagnoses / Procedures Referred By Contact Referred To Contact Authorized Auto-Generated Referral MR IMAGING Diagnoses Other closed fracture of left patella, initial encounter Procedures MRI KNEE WO IVCON LT MRI, JOINT OF LEG Mariecl Mercado DO [address] [place] [address] Mr Imaging Summary Purpose Family History No Family History Records Found Relationship Condition Age at Onset Recorded Date/T ken mother Polyp of colon Unknown Advance Directives No Advanced Directives Records Found Advance Directive Response Recorded Date/ Time Advance Directives No June 9:03am Living Will No July 27 11:34am Power of Quality Assurance Lab Technician No July 27, 2020 11:34am Advance Directive Response Recorded Date/ Time Advance Directives No June 10:03am Living Will No July 27 12:34pm Power of Quality Assurance Lab Technician No July 27, 2020 12:34pm Advance Directive Response Recorded Date/ Time Advance Directives No July 02, 2020 7:30am Living Will No November 14 4:04am Power of Quality Assurance Lab Technician No November 14, 2023 4:04am Advance Directive Response Recorded Date/ Time Advance Directives No July 02, 2020 8:30am Chief Complaint and Reason for Visit Chief Complaint LEFT KN PAIN/RX HERE GALLITO PROTOCOL Chief Complaint LEFT KN PAIN/RX HERE GALLITO PROTOCOL RULE OUT DVT/STAT ADD ON SCREENING POST OP LT TKA / RX HERE Chief Complaint POST OP LT TKA / RX HERE Chief Complaint abd pain Additional Source Comments Source Comments (unrecognize d section and content) In the event this informatio n is protected by the Federal Confidentiality of Alcohol and Drug Abuse Patient Records regulations: The Federal rules restrict any use of the information to criminally investigate or prosecute any alcohol or drug abuse patient.[facility] System[facility] the event this information is protected by the Federal Confidentiality of Alcohol and Drug Abuse Patient Records regulations: The Federal rules restrict any use of the information to criminally investigate or prosecute any alcohol or drug abuse patient.[facility] SystemIn the event this information is protected by the Federal Confidentiality of Alcohol and Drug Abuse Patient Records regulations: The Federal rules restrict any use of the information to criminally investigate or prosecute any alcohol or drug abuse patient.[facility] SystemIn the event this information is protected by the Federal Confidentiality of Alcohol and Drug Abuse Patient Records regulations: The Federal rules restrict any use of the information to criminally investigate or prosecute any alcohol or drug abuse patient.[facility] Reason for Visit (unrecogniz ed section and content) Reason Comments Established Patient Knee Pain Reason Comments Edema Right inner thigh Sw elling redness and pain warm to touch Started 3-4 days ago INFORMATION SOURCE (unrecogn ized section and content) DATE CREATED AUTHOR 12/22/2021 [facility] DATE CREATED AUTHOR AUTHOR'S ORGANIZ ATION 03/17/2022 [facility] [place] DATE CREATED AUTHOR AUTHOR'S ORGANIZ ATION 06/09/2024 [facility] DATE CREATED AUTHOR AUTHOR'S ORGANIZ ATION 01/19/2025 [facility] Care Teams (unrecognized sec tion and content) [place] Feeder Relationship Specialty Start Date End Date Jared Tena [address] [facility] [address] [place] [address] PCP - General 06/26/07 Team Status: Active Member Role Status Dates Dr. Nadege Perez DO Family Provider Active Dr. Nadege Preez DO Primary Care Provider Active Team Status: Inactive Member Role Status Dates Dr. Nadege Perez DO Primary Care Provider Active Luc MOSLEY PA-C Attending Provider Active Team Status: Inactive Member Role Status Dates Dr. Nadege Perez DO Primary Care Provider Active Dr. Edgar Ramesh MD Emergency Provider Active Mangle Feeder Relationship Specialty Start Date End Date Nadege Perez DO [address] [place], [place] [address] PCP - General Family Medicine 06/07/24 Team Status: Inactive Member Role Status Dates Dr. Nadege Perez DO Primary Care Provider Active Start: January 06, 2025 End: January 06, 2025 Dr. Nadege Perez DO Attending Provider Active St art: January 06, 2025 End: January 06, 2025 Goals (unrecognized section and content) Goals may be documented in a n alternate sectionGoals may be documented in an alternate sectionGoals may be documented in an alternate sectionGoals may be documented in an alternate sectionGoals may be documented in an alternate sectionGoals may be documented in an alternate section FOR RECORDS PERTAINING TO PATIENTS WHO ARE [...] BE BASED ON THE PRIMARY CLINICAL RECORDS. [facility] [email or web address] provides no warranty or guarantee of the accuracy or completeness of information in this document.
[2025-04-11 11:08] LABS: ANTINUCLEAR ANTIBODIES DIRECT Negative (Negative)
== END | disposition home or self-care (01) ==
LOC: BFHLAB 09:28
PROVIDERS: PCP Family Medicine; Visit Provider Family Medicine
DX: M25.50 Pain in unspecified joint (principal); M79.10 Myalgia, unspecified site
CPT/HCPCS: 36415; 85652; 86038; 86200; 86225; 86431

== ENCOUNTER → 2025-06-11 | Outpatient (CLI) | payer OTHER, SELFPAY ==
[2025-06-11 15:24] LABS: Hematocrit 38.6 % (37-47); Hemoglobin 13.0 g/dL (12.0-15.0); Immature Granulocytes Count 0.030 X10^3/uL (0.0-0.0); Mean Corp Hgb Conc 33.7 g/dL (32-36); Mean Corpuscular Volume 93.0 fL (81-99); Mean Platelet Vol. 10.5 fl (6.2-12.0); NRBC Flagged by Analyzer 0 % (0-5); Platelet Count 299 K/mm3 (150-450); RBC Distribution Width CV 13.2 % (11.6-14.6); RBC Distribution Width SD 45.1 fl (35.1-43.9); Red Blood Count 4.15 M/mm3 (4.2-5.4); White Blood Count 8.9 K/mm3 (4.4-11.0)
[2025-06-13 04:07] LABS: PROGESTERONE 0.7 ng/mL (.)
== END | disposition home or self-care (01) ==
LOC: BFHLAB 11:24
PROVIDERS: PCP Family Medicine; Visit Provider Family Medicine
DX: I10 Essential (primary) hypertension (principal); Z51.81 Encounter for therapeutic drug level monitoring; N93.8 Other specified abnormal uterine and vaginal bleeding; R53.83 Other fatigue
CPT/HCPCS: 36415; 82670; 84144; 84402; 84403; 84443; 85025